=== PATIENT | female | born 1965 | race Caucasian/White ===

== ENCOUNTER 2017-05-28 15:22 | Emergency (ER) | payer OTHER ==
[~2017-05-28] VITALS: Ht 170.2 cm; Wt 104.5 kg
[~2017-05-28 15:22] MED LIST: COUM10TA PO; LOVE0.8I SC; NO HOME MEDS; TYLE325T5 PO
[2017-05-28] MEDS ORDERED: XARE20TA PO (15:32)
[2017-05-28] MEDS ORDERED: CLINDAMYCIN 150 MG CAP PO ONE (16:00)
[2017-05-28] MEDS ORDERED: CLEO300C2 PO (16:33)
[2017-05-28] MEDS ORDERED: ACET30TAB PO (16:33)
[2017-05-28 16:41] VITALS: BP 180/86
[2017-05-28] MEDS ORDERED: ACETAMINOPH W/CODEINE #3 TAB UD PO ONE (16:45)
== END 2017-05-28 16:50 | disposition home or self-care (01) ==
LOC: M ED 15:22
DX: K08.89 Other specified disorders of teeth and supporting structures (principal); S02.5XXA Fracture of tooth (traumatic), initial encounter for closed fracture; X58.XXXA Exposure to other specified factors, initial encounter; Y92.9 Unspecified place or not applicable; Y93.9 Activity, unspecified; Y99.9 Unspecified external cause status; R56.9 Unspecified convulsions; Z86.718 Personal history of other venous thrombosis and embolism; Z86.711 Personal history of pulmonary embolism; Z79.899 Other long term (current) drug therapy; Z88.0 Allergy status to penicillin; Z88.8 Allergy status to other drugs, medicaments and biological substances

== ENCOUNTER 2017-09-15 18:10 | Emergency (ER) | payer OTHER ==
[2017-09-15] MEDS: NORCO, ANEXSIA 5/325MG TABLET (HYDROcodone/ACETAMINOPHEN) PO (19:15)
== END 2017-09-15 20:18 | disposition home or self-care (01) ==
LOC: M ED 18:10
DX: M72.2 Plantar fascial fibromatosis (principal); Z79.01 Long term (current) use of anticoagulants; Z87.39 Personal history of other diseases of the musculoskeletal system and connective tissue; Z86.718 Personal history of other venous thrombosis and embolism; Z86.711 Personal history of pulmonary embolism; Z88.1 Allergy status to other antibiotic agents; Z88.0 Allergy status to penicillin
CPT/HCPCS: 73630

== ENCOUNTER → 2018-10-02 | Outpatient (REF) | payer OTHER ==
[~2018-10-02] MED LIST changes: +ACET-716 PO; +CLEO300C2 PO; +HYDR-3715 PO; +XARE20TA PO
[2018-10-02 18:20] LABS: C REACTIVE PROTEIN QUANTITATIV < 0.30 MG/DL (0.00-0.30); RHEUMATOID FACTOR QUANT < 10.0 IU/ML (<15.0)
== END ==
LOC: M SFHCPLAZ 15:27
PROVIDERS: ATTEND Family Medicine
DX: M25.542 Pain in joints of left hand (principal); I82.503 Chronic embolism and thrombosis of unspecified deep veins of lower extremity, bilateral

== ENCOUNTER → 2018-10-08 | Outpatient (CLI) | payer OTHER ==
--- NOTE | 2018-10-08 13:15 | REP ---
Left lower extremity Duplex Doppler venous ultrasound: Real time compression and duplex Doppler interrogation of the left lower extremity deep venous system is performed. The left common femoral, superficial femoral and popliteal veins are fully compressible with transducer pressure and demonstrate normal spontaneous and phasic flow, without evidence of deep venous thrombosis. Impression: No evidence of deep venous thrombosis of the left lower extremity femoral popliteal venous system. Electronically Signed by Austin Kamara MD 10/08/2018 01:06 P
--- NOTE | 2018-10-08 14:29 | REP ---
BILATERAL HANDS, EIGHT VIEWS: HISTORY: Joint pain. RIGHT HAND: There is no acute fracture or dislocation. The joint spaces are normal in appearance. Calcifications are present medial to the 5th metacarpophalangeal joint. This represents ligamentous or tendon calcification. IMPRESSION: There is no acute fracture or dislocation. LEFT HAND: There is no acute fracture or dislocation. The joint spaces are normal in appearance. IMPRESSION: There is no acute fracture or dislocation. Electronically Signed by Abiodun Hernandes MD 10/08/2018 02:33 P
== END ==
LOC: M RAD 12:28
PROVIDERS: ATTEND Hospitalist
DX: M25.541 Pain in joints of right hand (principal); M25.542 Pain in joints of left hand; Z86.718 Personal history of other venous thrombosis and embolism

== ENCOUNTER → 2018-11-15 | Outpatient (REF) | payer OTHER ==
[2018-11-15 16:06] LABS: ALBUMIN 3.8 GM/DL (3.2-5.2); ALT/SGPT 74 U/L (12-78); BASO % 0.2 % (0.0-1.0); BILIRUBIN,TOTAL 0.6 MG/DL (0.2-1.0); BLOOD UREA NITROGEN 11 MG/DL (7-18); CALCIUM LEVEL 9.4 MG/DL (8.5-10.1); CARBON DIOXIDE LEVEL 27 MEQ/L (21-32); CHLORIDE LEVEL 108 MEQ/L (98-107); CHOLESTEROL LEVEL 213 MG/DL (<200); CHOLESTEROL RISK RATIO 3.227 (<5); CREATININE FOR GFR 0.82 MG/DL (0.55-1.30); EOS # 0.1 10^3/uL (0.0-0.50); EOS % 1.7 % (0.0-3.0); GLOMERULAR FILTRATION RATE > 60.0 (>51); GLUCOSE, FASTING 139 MG/DL (70-100); HDL CHOLESTEROL 66 MG/DL (>40); HEMATOCRIT 41.2 % (36.0-47.0); HEMOGLOBIN 13.7 g/dl (12.0-15.5); LDL CHOLESTEROL 120 MG/DL (<100); LYMPH # 1.9 10^3/uL (1.5-4.5); LYMPH % 31.7 % (24.0-44.0); MEAN CORPUSCULAR HEMOGLOBIN 30.4 pg (27.0-33.0); MEAN CORPUSCULAR HGB CONC 33.3 g/dl (32.0-36.5); MEAN CORPUSCULAR VOLUME 91.6 fl (80.0-96.0); MONO # 0.5 10^3/uL (0.0-0.8); MONO % 7.5 % (0.0-5.0); NEUTROPHILS # 3.5 10^3/uL (1.8-7.7); NEUTROPHILS % 58.6 % (36.0-66.0); NON-HDL-C 147 MG/DL; PLATELET COUNT, AUTOMATED 253 10^3/uL (150-450); SODIUM LEVEL 143 MEQ/L (136-145); TRIGLYCERIDES LEVEL 137 MG/DL (<150)
== END ==
LOC: M SFHCPLAZ 13:44
DX: Z00.00 Encounter for general adult medical examination without abnormal findings (principal)

== ENCOUNTER → 2020-07-08 | Outpatient (REF) | payer OTHER | LOC: M SFHCPLAZ 10:23 | PROVIDERS: ATTEND Family Medicine | DX: R10.11 Right upper quadrant pain (principal) ==

== ENCOUNTER → 2020-08-26 | Outpatient (REF) | payer OTHER ==
[2020-08-26 14:58] LABS: ALBUMIN 3.9 GM/DL (3.2-5.2); ALT/SGPT 65 U/L (12-78); BILIRUBIN,TOTAL 0.4 MG/DL (0.2-1.0); BLOOD UREA NITROGEN 15 MG/DL (7-18); CALCIUM LEVEL 9.7 MG/DL (8.5-10.1); CARBON DIOXIDE LEVEL 30 MEQ/L (21-32); CHLORIDE LEVEL 109 MEQ/L (98-107); CHOLESTEROL LEVEL 209 MG/DL (<200); CREATININE FOR GFR 0.82 MG/DL (0.55-1.30); GLOMERULAR FILTRATION RATE > 60.0 (>51); GLUCOSE, FASTING 98 MG/DL (70-100); HDL CHOLESTEROL 62 MG/DL (>40); LDL CHOLESTEROL 119 MG/DL (<100); NON-HDL-C 147 MG/DL; POTASSIUM SERUM 4.2 MEQ/L (3.5-5.1); SODIUM LEVEL 143 MEQ/L (136-145); TOTAL PROTEIN 7.5 GM/DL (6.4-8.2); TRIGLYCERIDES LEVEL 140 MG/DL (<150)
[2020-08-26 15:18] LABS: HEMOGLOBIN A1c 5.8 %
[2020-08-26 15:49] LABS: HEMATOCRIT 44.6 % (36.0-47.0); HEMOGLOBIN 14.5 g/dl (12.0-15.5); MEAN CORPUSCULAR HGB CONC 32.5 g/dl (32.0-36.5); MEAN CORPUSCULAR VOLUME 92.3 fl (80.0-96.0); PLATELET COUNT, AUTOMATED 271 10^3/uL (150-450); RED BLOOD COUNT 4.83 10^6/uL (4.00-5.40)
== END ==
LOC: M SFHCPLAZ 10:30
PROVIDERS: ATTEND Nurse Practitioner Adult Health
DX: Z86.711 Personal history of pulmonary embolism (principal); I82.509 Chronic embolism and thrombosis of unspecified deep veins of unspecified lower extremity; R73.9 Hyperglycemia, unspecified; Z13.220 Encounter for screening for lipoid disorders; Z13.29 Encounter for screening for other suspected endocrine disorder

== ENCOUNTER → 2020-09-09 | Outpatient (CLI) | payer OTHER ==
--- NOTE | 2020-09-09 09:23 | REP ---
INDICATION: RUQ PAIN. COMPARISON: 09/07/2015. TECHNIQUE: Real-time sonographic evaluation of right upper quadrant performed. FINDINGS: There may be some mild sludge in the gallbladder but no gallstones are seen. There is no gallbladder wall thickening or pericholecystic fluid.. There is no intrahepatic or extrahepatic biliary dilatation, common bile duct measures 5 mm in maximum diameter. Liver demonstrates diffuse heterogeneous increased echotexture compatible with diffuse fibrofatty infiltration. No gross liver masses seen. The pancreas demonstrates homogeneous echotexture with no gross mass, however, visualization of the pancreas is limited due to bowel gas. The right kidney demonstrates no hydronephrosis, with a normal size of 12.8 cm in length. The visualized abdominal aorta is normal in caliber.No free fluid is seen. IMPRESSION: Possible mild gallbladder sludge. No gallstones, gallbladder wall thickening, pericholecystic fluid or biliary dilatation. Diffuse fibrofatty infiltration of the liver. No free fluid. <Electronically signed by Austin Kamara > 09/09/20 0919
== END ==
LOC: M RAD 08:13
PROVIDERS: ATTEND Nurse Practitioner Adult Health
DX: R10.11 Right upper quadrant pain (principal); K76.0 Fatty (change of) liver, not elsewhere classified

== ENCOUNTER → 2020-10-12 | Outpatient (CLI) | payer OTHER ==
[~2020-10-12] MED LIST changes: +ISOVUE-370 76% 100ML VIAL As Ordered ONE
--- NOTE | 2020-10-12 16:54 | REP ---
INDICATION: SOLITARY PULMONARY NODULE. COMPARISON: April 17, 2015 and 10/25/2013 TECHNIQUE: Standard helical technique after the intravenous administration of 100 cc Isovue 370. FINDINGS: The mediastinum and pulmonary kailey are within normal limits. There are no pleural or pericardial effusions. The imaged upper abdomen and imaged osseous structures are within normal limits with the exception of an unchanged left adrenal gland nodule. This nodule has been stable since 2013. Evaluation of the lung reid shows a stable left lower lobe nodule. There are no new abnormal nodules, masses, or opacities. IMPRESSION: Stable CT findings as described above. <Electronically signed by Trent Becker > 10/12/20 1070
== END ==
LOC: M RAD 15:35
PROVIDERS: ATTEND Nurse Practitioner Adult Health
DX: R91.1 Solitary pulmonary nodule (principal)
CPT/HCPCS: 71260; Q9967

== ENCOUNTER → 2020-11-17 | Outpatient (CLI) | payer OTHER ==
[~2020-11-17] MED LIST changes: -ISOVUE-370 76% 100ML VIAL As Ordered ONE
--- NOTE | 2020-11-17 16:12 | REP ---
INDICATION: RIGHT SIDED PAIN COMPARISON: None. TECHNIQUE: AP and frog-lateral views of the right hip FINDINGS: Moderate osteoarthritic degenerative changes include increased sclerosis along the acetabular roof with marginal spurring and joint space narrowing as well as enthesopathy along the visualized iliac bone and femoral trochanter. IMPRESSION: Moderate osteoarthritic degenerative changes. <Electronically signed by Isael Ramires > 11/17/20 [id number]
--- NOTE | 2020-11-17 16:13 | REP ---
INDICATION: RIGHT SIDED PAIN COMPARISON: None. TECHNIQUE: AP, lateral, bilateral oblique, and coned-down views of the lumbar spine. FINDINGS: Alignment is maintained. Vertebral bodies are intact. And there is no evidence for acute fracture/compression injury or subluxation. Moderate to early advanced multilevel degenerative changes include endplate sclerosis, disc space narrowing, osteophytosis and facet hypertrophy. IMPRESSION: Moderate early advanced multilevel degenerative spondylosis. <Electronically signed by Isael Ramires > 11/17/20 [id number]
== END ==
LOC: M WUC 15:29
PROVIDERS: ATTEND Nurse Practitioner Adult Health
DX: M47.9 Spondylosis, unspecified (principal); M77.9 Enthesopathy, unspecified

== ENCOUNTER → 2020-12-22 | Outpatient (REF) | payer OTHER | LOC: M WUC 16:00 | PROVIDERS: ATTEND Internal Medicine Gastroenterology | DX: R10.11 Right upper quadrant pain (principal) ==

== ENCOUNTER → 2020-12-30 | Outpatient (CLI) | payer OTHER ==
[~2020-12-30] MED LIST changes: +GLUCAGON INJ 1MG VIAL As Ordered ONE; +ISOVUE-370 76% 100ML VIAL As Ordered ONE; +NEULUMEX 0.1% SUSPENSION 450ML BOTTLE (FORMERLY VOLUMEN) As Ordered ONE
--- NOTE | 2020-12-30 22:58 | REP ---
INDICATION: HEMORRHAGE ANUS/RECTUM COMPARISON: None. TECHNIQUE: Axial contrast-enhanced images from the lung bases to the pubic symphysis with images obtained in arterial and portal venous phases of enhancement. Low-dose oral contrast material was administered prior to imaging. Coronal and sagittal reformations were obtained. FINDINGS: The enteric system including stomach, small, and large bowel appears normal. There is no evidence for bowel obstruction or perforation. No mucosal thickening or perienteric inflammatory stranding. No areas of stricture or fistulous formation noted. Terminal ileum and appendix are normal. Few scattered sigmoid diverticula noted without acute diverticulitis. Liver, spleen, pancreas, right adrenal gland and left kidney are normal. 4 mm nonobstructing calculus in the right kidney. Left adrenal gland includes 1.9 cm adenoma unchanged. Pelvis demonstrates normal bladder and age-appropriate uterus/adnexa. No ascites. No adenopathy. No free air. Atherosclerotic changes to the aorta and vasculature noted. Musculoskeletal structures demonstrate age-related changes without acute osseous abnormality. Lung bases are clear. IMPRESSION: 1. Normal appearance to the gastrointestinal system. 2. Stable left adrenal adenoma and 4 mm nonobstructing right renal calculus. <Electronically signed by Isael Ramires > 12/30/20 0732
== END ==
LOC: M RAD 17:20
PROVIDERS: ATTEND Internal Medicine Gastroenterology
DX: N20.0 Calculus of kidney (principal); D35.00 Benign neoplasm of unspecified adrenal gland; K62.5 Hemorrhage of anus and rectum; R19.7 Diarrhea, unspecified; R10.11 Right upper quadrant pain
CPT/HCPCS: 74177; J1610; Q9967

== ENCOUNTER → 2021-01-14 | Outpatient (CLI) | payer OTHER ==
[~2021-01-14] MED LIST changes: +ACET-683 PO; -GLUCAGON INJ 1MG VIAL As Ordered ONE; -ISOVUE-370 76% 100ML VIAL As Ordered ONE; +LOPE2TAB12 PO; -NEULUMEX 0.1% SUSPENSION 450ML BOTTLE (FORMERLY VOLUMEN) As Ordered ONE
== END ==
LOC: M LABSMTC 10:05
PROVIDERS: ATTEND Anesthesiology
DX: Z01.818 Encounter for other preprocedural examination (principal)

== ENCOUNTER 2021-01-19 10:26 | Day surgery (SDC) | payer OTHER ==
[~2021-01-19] VITALS: Ht 170.2 cm; Wt 108.1 kg
[~2021-01-19 10:26] MED LIST changes: +NS 1,000 ML IV SCH
[2021-01-19] MEDS ORDERED: fentaNYL 100 MCG/2 ML INJECTION (J3010) As Ordered ONE (12:16)
--- NOTE | 2021-01-19 12:47 | ROOR ---
Patient Name: Kelly Porras Procedure Date: 01/19/2021 12:34 PM Date of : 1965 Age: 55 Room: [facility] Gender: Female Note Status: Finalized Procedure: Upper GI endoscopy Indications: Epigastric abdominal pain Providers: Rishi Fatima MD Referring MD: Lindsey Geiger NP Requesting Provider: Medicines: Monitored Anesthesia Care Complications: No immediate complications. Procedure: Pre-Anesthesia Assessment: - The heart rate, respiratory rate, oxygen saturations, blood pressure, adequacy of pulmonary ventilation, and response to care were monitored throughout the procedure. The Endoscope was introduced through the mouth, and advanced to the second part of duodenum. The upper GI endoscopy was accomplished without difficulty. The patient tolerated the procedure well. Findings: The esophagus was normal. The stomach was normal. The examined duodenum was normal. Impression: - Normal esophagus. - Normal stomach. - Normal examined duodenum. - No specimens collected. Recommendation: - Observe patient's clinical course. - Continue present medications. - Follow an antireflux regimen. Procedure Code(s): --- Professional --- 42550, Esophagogastroduodenoscopy, flexible, transoral; diagnostic, including collection of specimen(s) by brushing or washing, when performed (separate procedure) Diagnosis Code(s): --- Professional --- R10.13, Epigastric pain CPT copyright 2019 [employer]. All rights reserved. The codes documented in this report are preliminary and upon greenhouse assistant review may be revised to meet current compliance requirements. Rishi Fatima MD Rishi Fatima MD 01/19/2021 12:47:20 PM Electronically signed by Rishi Fatima MD Number of Addenda: 0 Note Initiated On: 01/19/2021 12:34 PM Estimated Blood Loss: Estimated blood loss: none.
[2021-01-19] MEDS ORDERED: propofoL 200 MG/20 ML VIAL As Ordered ONE (12:53)
[2021-01-19] MEDS ORDERED: LIDOCAINE 2% 100MG/5ML SDV (FOR ANES.) As Ordered ONE (12:53)
--- NOTE | 2021-01-19 13:02 | ROOR ---
Patient Name: Kelly Porras Procedure Date: 01/19/2021 12:35 PM Date of : 1965 Age: 55 Room: [facility] Gender: Female Note Status: Finalized Procedure: Colonoscopy Indications: Suspected irritable bowel syndrome, Irritable bowel syndrome with diarrhea Providers: Rishi Fatima MD Referring MD: Lindsey Geiger NP Requesting Provider: Medicines: Monitored Anesthesia Care Complications: No immediate complications. Procedure: Pre-Anesthesia Assessment: - The heart rate, respiratory rate, oxygen saturations, blood pressure, adequacy of pulmonary ventilation, and response to care were monitored throughout the procedure. The Colonoscope was introduced through the anus and advanced to 10 cm into the ileum. The colonoscopy was performed without difficulty. The patient tolerated the procedure well. The quality of the bowel preparation was good. Findings: The perianal and digital rectal examinations were normal. Small Internal Hemorrhoids. A 4 mm polyp was found in the sigmoid colon. The polyp was sessile. The polyp was removed with a cold snare. Resection and retrieval were complete. The exam was otherwise normal throughout the examined colon. The terminal ileum appeared normal. Biopsies for histology were taken with a cold forceps for evaluation of microscopic colitis. Impression: - Small Internal Hemorrhoids. - One 4 mm polyp in the sigmoid colon, removed with a cold snare. Resected and retrieved. - The colon and examined portion of the ileum are otherwise normal. - Biopsies were taken with a cold forceps for evaluation of microscopic colitis. - (Irritable Bowel Syndrome/IBS suspected.) Recommendation: - Please complete your stool testing as ordered. - Telephone endoscopist for pathology results in 2 weeks. - Use fiber, for example Citrucel, Fibercon, Konsyl or Metamucil. - Imodium 1 tablet PO BID. Procedure Code(s): --- Professional --- 89546, Colonoscopy, flexible; with removal of tumor(s), polyp(s), or other lesion(s) by snare technique 88883, 59, Colonoscopy, flexible; with biopsy, single or multiple Diagnosis Code(s): --- Professional --- K58.0, Irritable bowel syndrome with diarrhea K63.5, Polyp of colon CPT copyright 2019 [employer]. All rights reserved. The codes documented in this report are preliminary and upon environmental sampler review may be revised to meet current compliance requirements. Rishi Fatima MD Rishi Fatima MD 01/19/2021 1:02:10 PM Electronically signed by Rishi Fatima MD Number of Addenda: 0 Note Initiated On: 01/19/2021 12:35 PM Estimated Blood Loss: Estimated blood loss: none.
[2021-01-19 13:37] VITALS: BP 156/74
== END 2021-01-19 13:39 | disposition home or self-care (01) ==
LOC: M OPP 10:26
PROVIDERS: ATTEND Internal Medicine Gastroenterology
DX: K63.5 Polyp of colon (principal); K64.8 Other hemorrhoids; K62.5 Hemorrhage of anus and rectum; R10.13 Epigastric pain; Z79.891 Long term (current) use of opiate analgesic; Z79.899 Other long term (current) drug therapy; Z88.0 Allergy status to penicillin; Z88.1 Allergy status to other antibiotic agents; Z86.711 Personal history of pulmonary embolism
CPT/HCPCS: 43235; 45380; 45385; 88305; J3010

== ENCOUNTER → 2022-01-28 | Outpatient (CLI) | payer OTHER ==
[~2022-01-28] MED LIST changes: -NS 1,000 ML IV SCH
[2022-01-28 16:35] LABS: HEMATOCRIT 44.4 % (36.0-47.0); HEMOGLOBIN 14.6 g/dl (12.0-15.5); MEAN CORPUSCULAR HEMOGLOBIN 30.4 pg (27.0-33.0); MEAN CORPUSCULAR HGB CONC 32.9 g/dl (32.0-36.5); MEAN CORPUSCULAR VOLUME 92.3 fl (80.0-96.0); PLATELET COUNT, AUTOMATED 258 10^3/uL (150-450); RED BLOOD COUNT 4.81 10^6/uL (4.00-5.40)
[2022-01-28 17:17] LABS: ALBUMIN 3.6 GM/DL (3.2-5.2); ALT/SGPT 49 U/L (12-78); BILIRUBIN,TOTAL 0.3 MG/DL (0.2-1.0); BLOOD UREA NITROGEN 19 MG/DL (7-18); CALCIUM LEVEL 9.4 MG/DL (8.5-10.1); CARBON DIOXIDE LEVEL 24 MEQ/L (21-32); CHLORIDE LEVEL 104 MEQ/L (98-107); CREATININE FOR GFR 0.85 MG/DL (0.55-1.30); GLOMERULAR FILTRATION RATE > 60.0 (>51); GLUCOSE, FASTING 130 MG/DL (70-100); POTASSIUM SERUM 3.7 MEQ/L (3.5-5.1); SODIUM LEVEL 136 MEQ/L (136-145); TOTAL PROTEIN 7.5 GM/DL (6.4-8.2)
[2022-01-28 17:37] LABS: TOTAL 25(OH) VITAMIN D 13.8 NG/ML (30.0-100.0)
[2022-01-28 19:11] LABS: HEMOGLOBIN A1c 5.8 %
== END ==
LOC: M WUC 13:06
PROVIDERS: ATTEND Nurse Practitioner Adult Health
DX: R73.9 Hyperglycemia, unspecified (principal); Z13.21 Encounter for screening for nutritional disorder; N93.8 Other specified abnormal uterine and vaginal bleeding; Z86.711 Personal history of pulmonary embolism; I82.509 Chronic embolism and thrombosis of unspecified deep veins of unspecified lower extremity; Z13.29 Encounter for screening for other suspected endocrine disorder

== ENCOUNTER → 2023-01-11 | Outpatient (CLI) | payer OTHER | LOC: M WHC 09:02 | PROVIDERS: ATTEND Nurse Practitioner Family | DX: N95.0 Postmenopausal bleeding (principal); R93.89 Abnormal findings on diagnostic imaging of other specified body structures ==

== ENCOUNTER → 2023-01-13 | Outpatient (REF) | payer OTHER | LOC: M SFHCWAGY 17:43 | PROVIDERS: ATTEND Nurse Practitioner Family | DX: Z12.4 Encounter for screening for malignant neoplasm of cervix (principal); N85.00 Endometrial hyperplasia, unspecified | CPT/HCPCS: 87624; 88305; G0123 ==

== ENCOUNTER → 2023-03-27 | Outpatient (CLI) | payer OTHER ==
[~2023-03-27] MED LIST changes: +GASTROGRAFIN SOLUTION 30ML As Ordered ONE; +ISOVUE-370 76% 100ML VIAL As Ordered ONE
== END ==
LOC: M RAD 07:31
PROVIDERS: ATTEND Obstetrics & Gynecology
DX: C54.1 Malignant neoplasm of endometrium (principal); R91.1 Solitary pulmonary nodule; K76.0 Fatty (change of) liver, not elsewhere classified
CPT/HCPCS: 71260; 74177; Q9963; Q9967

== ENCOUNTER → 2023-05-02 | Outpatient (CLI) | payer OTHER ==
[~2023-05-02] VITALS: Ht 171.4 cm; Wt 100.0 kg
[~2023-05-02] MED LIST changes: -GASTROGRAFIN SOLUTION 30ML As Ordered ONE; -ISOVUE-370 76% 100ML VIAL As Ordered ONE; +LIDOCAINE 1% MDV 20ML VIAL As Ordered ONE; +LIDOCAINE W/EPINEPHRINE 1% 20ML VIAL As Ordered ONE; +MIDAZOLAM INJ 2MG/2ML VIAL As Ordered ONE; +NS 1,000 ML IV SCH; +VANCOMYCIN 1000MG/20ML VIAL As Ordered ONE; +VANCOMYCIN HCL 1,000 MG, VIAL MATE ADAPTER 1 EACH in D5W 250 ML IV ONE; +fentaNYL 100 MCG/2 ML INJECTION As Ordered ONE
[2023-05-02 14:45] VITALS: TEMP 98.1
[2023-05-02 17:05] VITALS: BP 144/82; O2SAT 97
== END ==
LOC: M IRPRO 14:34
PROVIDERS: ATTEND Internal Medicine Hematology & Oncology
DX: C54.1 Malignant neoplasm of endometrium (principal)
CPT/HCPCS: 36571; 99152; 99153; C1894; J2250; J3010; J3370

== ENCOUNTER → 2023-06-22 | Outpatient (REF) | payer OTHER ==
[~2023-06-22] MED LIST changes: +ESTR0.1C5 TOP; +LIDO30CR18 TOP; -LIDOCAINE 1% MDV 20ML VIAL As Ordered ONE; -LIDOCAINE W/EPINEPHRINE 1% 20ML VIAL As Ordered ONE; -MIDAZOLAM INJ 2MG/2ML VIAL As Ordered ONE; -NS 1,000 ML IV SCH; +ONDA-84 PO; +PROC10TA5 PO; -VANCOMYCIN 1000MG/20ML VIAL As Ordered ONE; -VANCOMYCIN HCL 1,000 MG, VIAL MATE ADAPTER 1 EACH in D5W 250 ML IV ONE; -fentaNYL 100 MCG/2 ML INJECTION As Ordered ONE
== END ==
LOC: M LAB REF 17:24
PROVIDERS: ATTEND Specialist
DX: C54.1 Malignant neoplasm of endometrium (principal)

== ENCOUNTER 2023-07-05 16:48 | Emergency (ER) | payer OTHER ==
[~2023-07-05] VITALS: Ht 170.2 cm; Wt 95.4 kg
[~2023-07-05 16:48] MED LIST changes: +DIPH2.5T15 PO
[2023-07-05] MEDS ORDERED: ACET1TAB55 (17:14)
[2023-07-05] MEDS ORDERED: ACETAMINOPHEN 500 MG TAB PO ONE (17:20)
[2023-07-05] MEDS ORDERED: NS 1,000 ML IV SCH (17:20)
[2023-07-05 18:34] LABS: BASO % 0.5 % (0.0-1.0); EOS # 0.1 10^3/uL (0.0-0.5); EOS % 3.8 % (0.0-3.0); HEMATOCRIT 38.5 % (36.0-47.0); HEMOGLOBIN 13.3 g/dl (12.0-15.5); LYMPH # 0.7 10^3/uL (1.5-5.0); LYMPH % 34.7 % (24.0-44.0); MEAN CORPUSCULAR HEMOGLOBIN 30.6 pg (27.0-33.0); MEAN CORPUSCULAR HGB CONC 34.5 g/dl (32.0-36.5); MEAN CORPUSCULAR VOLUME 88.7 fl (80.0-96.0); MONO % 1.4 % (2.0-8.0); NEUTROPHILS # 1.3 10^3/uL (1.5-8.5); NEUTROPHILS % 59.1 % (36.0-66.0); PLATELET COUNT, AUTOMATED 125 10^3/uL (150-450); RED BLOOD COUNT 4.34 10^6/uL (4.00-5.40); WHITE BLOOD COUNT 2.1 10^3/uL (4.0-10.0)
[2023-07-05 18:55] LABS: LIPASE 34 U/L (12-53)
[2023-07-05 18:58] LABS: ALBUMIN 3.3 G/DL (3.2-5.2); ALKALINE PHOSPHATASE 99 U/L (46-116); ALT/SGPT 85 U/L (7.0-40); AST/SGOT 67 U/L (<34); BILIRUBIN,DIRECT 0.4 MG/DL (<0.4); BILIRUBIN,TOTAL 1.1 MG/DL (0.3-1.2); BLOOD UREA NITROGEN 14 MG/DL (9-23); CALCIUM LEVEL 9.5 MG/DL (8.5-10.1); CARBON DIOXIDE LEVEL 29 MMOL/L (20-31); CHLORIDE LEVEL 102 MMOL/L (98-107); CREATININE FOR GFR 0.54 MG/DL (0.55-1.30); GLOMERULAR FILTRATION RATE > 60.0 (>51); GLUCOSE, FASTING 130 MG/DL (60-100); POTASSIUM SERUM 3.8 MMOL/L (3.5-5.1); SODIUM LEVEL 138 MMOL/L (136-145); TOTAL PROTEIN 6.4 G/DL (5.7-8.2)
[2023-07-05] MEDS ORDERED: ISOVUE-370 76% 100ML VIAL As Ordered ONE (19:29)
[2023-07-05 19:57] LABS: INR 1.38; PROTHROMBIN TIME 16.5 SECONDS (12.5-14.5)
[2023-07-05 19:58] LABS: PARTIAL THROMBOPLASTIN TIME 28.5 SECONDS (24.8-34.2)
[2023-07-05] MEDS ORDERED: NORCO 5/325MG TABLET (HOME DOSE PACK) PO ONE (22:15)
[2023-07-05 22:22] VITALS: BP 114/66; O2SAT 96
[2023-07-05] MEDS ORDERED: HYDR-3713 PO (22:22)
[2023-07-05 22:36] VITALS: TEMP 97.3
== END 2023-07-05 22:57 | disposition home or self-care (01) ==
LOC: M ED 16:48
DX: K52.9 Noninfective gastroenteritis and colitis, unspecified (principal); C54.1 Malignant neoplasm of endometrium; E27.9 Disorder of adrenal gland, unspecified; R93.3 Abnormal findings on diagnostic imaging of other parts of digestive tract; Z86.711 Personal history of pulmonary embolism; Z86.718 Personal history of other venous thrombosis and embolism; D68.61 Antiphospholipid syndrome; Z95.828 Presence of other vascular implants and grafts; Z92.21 Personal history of antineoplastic chemotherapy; Z79.01 Long term (current) use of anticoagulants; Z88.0 Allergy status to penicillin; Z88.8 Allergy status to other drugs, medicaments and biological substances
CPT/HCPCS: 70450; 74177; 80048; 80076; 83605; 83690; 85025; 85610; 85730; 87486; 87507; 87581; 87633; 87798; 93005; 96360; 96361; 96375; 99284; Q9967

== ENCOUNTER → 2023-07-18 | Outpatient (CLI) | payer OTHER ==
[~2023-07-18] MED LIST changes: +ACET1TAB55; +HYDR-3713 PO
== END ==
LOC: M ONCM 10:29
PROVIDERS: ATTEND Dietitian, Registered
DX: C54.1 Malignant neoplasm of endometrium (principal); Z71.3 Dietary counseling and surveillance; Z68.30 Body mass index [BMI] 30.0-30.9, adult; Z86.16 Personal history of COVID-19; Z92.21 Personal history of antineoplastic chemotherapy

== ENCOUNTER 2023-08-30 20:23 | Inpatient (IN) | payer OTHER ==
[~2023-08-30] VITALS: Ht 170.2 cm; Wt 84.6 kg
[2023-08-30] MEDS: SODIUM CHLORIDE 0.9% INJ 10 ML SYR IV SCH (09:00)
[~2023-08-30 20:23] MED LIST changes: +MEGE400O12 PO; +POTA-151 PO
[2023-08-30] MEDS: NS 1,000 ML IV ONE (22:10)
[2023-08-30] MEDS: ONDANSETRON 4MG 2ML VIAL IV ONE (22:10)
[2023-08-30] MEDS: MORPHINE 4 MG/ML 1ML VIAL IV PRN (22:10)
[2023-08-30 22:12] LABS: BASO % 0.9 % (0.0-1.0); EOS % 0.9 % (0.0-3.0); HEMOGLOBIN 11.7 g/dl (12.0-15.5); LYMPH # 0.3 10^3/uL (1.5-5.0); LYMPH % 29.1 % (24.0-44.0); MEAN CORPUSCULAR HEMOGLOBIN 32.1 pg (27.0-33.0); MEAN CORPUSCULAR HGB CONC 35.5 g/dl (32.0-36.5); MEAN CORPUSCULAR VOLUME 90.4 fl (80.0-96.0); MONO % 1.7 % (2.0-8.0); NEUTROPHILS % 65.7 % (36.0-66.0); RED BLOOD COUNT 3.65 10^6/uL (4.00-5.40); WHITE BLOOD COUNT 1.2 10^3/uL (4.0-10.0)
[2023-08-30 22:33] LABS: LIPASE 28 U/L (12-53)
[2023-08-30 22:39] LABS: NEUTROPHILS # 0.8 10^3/uL (1.5-8.5); PLATELET COUNT, AUTOMATED 70 10^3/uL (150-450)
[2023-08-30 22:48] LABS: RSV AMPLIFICATION NEGATIVE (NEGATIVE)
[2023-08-30 22:54] LABS: ALBUMIN 3.2 G/DL (3.2-5.2); ALKALINE PHOSPHATASE 81 U/L (46-116); ALT/SGPT 90 U/L (7.0-40); AST/SGOT 108 U/L (<34); BILIRUBIN,DIRECT 1.2 MG/DL (<0.4); BILIRUBIN,TOTAL 2.3 MG/DL (0.3-1.2); BLOOD UREA NITROGEN 14 MG/DL (9-23); CALCIUM LEVEL 8.6 MG/DL (8.5-10.1); CARBON DIOXIDE LEVEL 29 MMOL/L (20-31); CHLORIDE LEVEL 98 MMOL/L (98-107); CREATININE FOR GFR 0.44 MG/DL (0.55-1.30); GLOMERULAR FILTRATION RATE > 60.0 (>51); GLUCOSE, FASTING 116 MG/DL (60-100); MAGNESIUM LEVEL 1.7 MG/DL (1.8-2.4); POTASSIUM SERUM 3.3 MMOL/L (3.5-5.1); SODIUM LEVEL 134 MMOL/L (136-145); TOTAL PROTEIN 6.1 G/DL (5.7-8.2)
[2023-08-31] MEDS: KCL 10MEQ/100ML SWI (KRUN) 10 MEQ in IV 1 EA IV ONE (00:14)
[2023-08-31] MEDS ORDERED: MOM 30ML SUSPENSION UDC PO PRN (02:10)
[2023-08-31] MEDS ORDERED: SODIUM CHLORIDE 0.9% INJ 10 ML SYR IV PRN (02:10)
[2023-08-31] MEDS ORDERED: ACETAMINOPHEN TAB 650MG DOSE (2X325MG) PO PRN (02:10)
[2023-08-31] MEDS ORDERED: HOME MED LIST COMPLETE! XX SCH (02:20)
[2023-08-31] MEDS: LR 1,000 ML IV SCH (02:57)
[2023-08-31] MEDS: MAG SULF 1GM/100ML (MAG RUN) 1 GM in IV 1 EA IV ONE (03:27)
[2023-08-31 04:24] VITALS: BP 130/83; TEMP 97.7; O2SAT 99
[2023-08-31] MEDS: RIVAROXABAN 20MG TAB (XARELTO) PO SCH (08:18)
[2023-08-31] MEDS: DOCUSATE SODIUM 100MG CAPSULE PO SCH (08:21)
[2023-08-31] MEDS: SODIUM CHLORIDE 0.9% INJ 10 ML SYR IV SCH (08:21)
[2023-08-31] MEDS ORDERED: PERCOCET 5MG/325MG TAB PO PRN (10:20)
[2023-08-31] MEDS: HYDROMORPHONE HCL 0.5 MG/ 0.5 ML SYRINGE IV ONE (10:42)
[2023-08-31 10:58] LABS: HEMOGLOBIN 10.3 g/dl (12.0-15.5); LYMPH # 0.6 10^3/uL (1.5-5.0); LYMPH % 59.8 % (24.0-44.0); MEAN CORPUSCULAR HEMOGLOBIN 32.4 pg (27.0-33.0); MEAN CORPUSCULAR HGB CONC 35.5 g/dl (32.0-36.5); MEAN CORPUSCULAR VOLUME 91.2 fl (80.0-96.0); MONO % 3.1 % (2.0-8.0); NEUTROPHILS % 34.1 % (36.0-66.0); RED BLOOD COUNT 3.18 10^6/uL (4.00-5.40)
[2023-08-31 11:32] LABS: NEUTROPHILS # 0.3 10^3/uL (1.5-8.5); PLATELET COUNT, AUTOMATED 59 10^3/uL (150-450)
[2023-08-31 11:34] LABS: ALBUMIN 2.8 G/DL (3.2-5.2); ALKALINE PHOSPHATASE 71 U/L (46-116); ALT/SGPT 73 U/L (7.0-40); AST/SGOT 80 U/L (<34); BILIRUBIN,TOTAL 1.7 MG/DL (0.3-1.2); BLOOD UREA NITROGEN 10 MG/DL (9-23); CALCIUM LEVEL 8.6 MG/DL (8.5-10.1); CARBON DIOXIDE LEVEL 28 MMOL/L (20-31); CHLORIDE LEVEL 102 MMOL/L (98-107); CREATININE FOR GFR 0.46 MG/DL (0.55-1.30); GLOMERULAR FILTRATION RATE > 60.0 (>51); GLUCOSE, FASTING 92 MG/DL (60-100); MAGNESIUM LEVEL 1.8 MG/DL (1.8-2.4); POTASSIUM SERUM 3.3 MMOL/L (3.5-5.1); SODIUM LEVEL 137 MMOL/L (136-145); TOTAL PROTEIN 5.3 G/DL (5.7-8.2)
[2023-08-31] MEDS: cefTRIAXone SOD 2 GM in D5W MINI-BAG PLUS 50 ML IV SCH (12:46)
[2023-08-31] MEDS: metroNIDAZOLE 500 MG in IV 1 EA IV SCH (13:50)
[2023-08-31 14:00] VITALS: BP 131/82; TEMP 98.1; O2SAT 96
[2023-08-31] MEDS: ONDANSETRON 4MG ORAL DISINTEGRATING TAB PO PRN (16:46)
[2023-08-31] MEDS: LACTOBACILLUS ACIDOPHILUS CAP (BACID) PO SCH (16:46)
[2023-08-31] MEDS: PERCOCET 5MG/325MG TAB PO PRN (20:00)
[2023-08-31 20:15] VITALS: BP 115/79; TEMP 97.7; O2SAT 97
[2023-09-01 05:27] VITALS: BP 116/77; TEMP 98.6; O2SAT 98
[2023-09-01 06:41] LABS: EOS % 1.5 % (0.0-3.0); HEMATOCRIT 28.4 % (36.0-47.0); HEMOGLOBIN 9.9 g/dl (12.0-15.5); LYMPH # 0.5 10^3/uL (1.5-5.0); LYMPH % 79.1 % (24.0-44.0); MEAN CORPUSCULAR HEMOGLOBIN 31.9 pg (27.0-33.0); MEAN CORPUSCULAR HGB CONC 34.9 g/dl (32.0-36.5); MEAN CORPUSCULAR VOLUME 91.6 fl (80.0-96.0); NEUTROPHILS % 16.4 % (36.0-66.0)
[2023-09-01 06:46] LABS: NEUTROPHILS # 0.1 10^3/uL (1.5-8.5); WHITE BLOOD COUNT 0.7 10^3/uL (4.0-10.0)
[2023-09-01 06:47] LABS: PLATELET COUNT, AUTOMATED 51 10^3/uL (150-450)
[2023-09-01 07:07] LABS: ALBUMIN 2.9 G/DL (3.2-5.2); ALKALINE PHOSPHATASE 71 U/L (46-116); ALT/SGPT 75 U/L (7.0-40); AST/SGOT 85 U/L (<34); BILIRUBIN,TOTAL 1.3 MG/DL (0.3-1.2); BLOOD UREA NITROGEN 7 MG/DL (9-23); CALCIUM LEVEL 8.6 MG/DL (8.5-10.1); CARBON DIOXIDE LEVEL 27 MMOL/L (20-31); CHLORIDE LEVEL 104 MMOL/L (98-107); CREATININE FOR GFR 0.47 MG/DL (0.55-1.30); GLOMERULAR FILTRATION RATE > 60.0 (>51); GLUCOSE, FASTING 86 MG/DL (60-100); MAGNESIUM LEVEL 1.5 MG/DL (1.8-2.4); POTASSIUM SERUM 3.5 MMOL/L (3.5-5.1); SODIUM LEVEL 137 MMOL/L (136-145); TOTAL PROTEIN 5.4 G/DL (5.7-8.2)
[2023-09-01 07:14] LABS: PROCALCITONIN 0.09 ng/ml
[2023-09-01] MEDS: FILGRASTIM 300MCG 0.5ML SYRINGE **SC ADMINISTRATION ONLY SC SCH (11:13)
[2023-09-01 14:00] VITALS: BP 115/78; TEMP 97.9; O2SAT 94
[2023-09-01] MEDS: MAG SULF 1GM/100ML (MAG RUN) 1 GM in IV 1 EA IV SCH (16:39)
[2023-09-01] MEDS: KCL 10MEQ/100ML SWI (KRUN) 10 MEQ in IV 1 EA IV ONE (18:52)
[2023-09-01 20:55] VITALS: BP 115/77; TEMP 97.7; O2SAT 98
[2023-09-02 06:00] VITALS: BP 118/74; TEMP 98.1; O2SAT 99
[2023-09-02 06:49] LABS: EOS % 1.2 % (0.0-3.0); HEMATOCRIT 27.8 % (36.0-47.0); HEMOGLOBIN 9.8 g/dl (12.0-15.5); LYMPH # 0.6 10^3/uL (1.5-5.0); LYMPH % 67.9 % (24.0-44.0); MEAN CORPUSCULAR HEMOGLOBIN 32.1 pg (27.0-33.0); MEAN CORPUSCULAR HGB CONC 35.3 g/dl (32.0-36.5); MEAN CORPUSCULAR VOLUME 91.1 fl (80.0-96.0); MONO # 0.1 10^3/uL (0.0-0.8); MONO % 7.1 % (2.0-8.0); NEUTROPHILS % 23.8 % (36.0-66.0); RED BLOOD COUNT 3.05 10^6/uL (4.00-5.40)
[2023-09-02 07:01] LABS: NEUTROPHILS # 0.2 10^3/uL (1.5-8.5); PLATELET COUNT, AUTOMATED 40 10^3/uL (150-450); WHITE BLOOD COUNT 0.8 10^3/uL (4.0-10.0)
[2023-09-02 07:16] LABS: BLOOD UREA NITROGEN < 5 MG/DL (9-23); CALCIUM LEVEL 8.6 MG/DL (8.5-10.1); CARBON DIOXIDE LEVEL 28 MMOL/L (20-31); CHLORIDE LEVEL 104 MMOL/L (98-107); CREATININE FOR GFR 0.47 MG/DL (0.55-1.30); GLOMERULAR FILTRATION RATE > 60.0 (>51); GLUCOSE, FASTING 92 MG/DL (60-100); POTASSIUM SERUM 3.3 MMOL/L (3.5-5.1); SODIUM LEVEL 139 MMOL/L (136-145)
[2023-09-02] MEDS: LOPERAMIDE 2 MG CAPLET PO ONE (08:47)
[2023-09-02] MEDS: KCL 10MEQ/100ML SWI (KRUN) 10 MEQ in IV 1 EA IV SCH (08:47)
[2023-09-02] MEDS ORDERED: KCL 40MEQ IN D5/0.45NS 1000ML 1,000 ML IV SCH (09:00)
[2023-09-02] MEDS: KCL 40MEQ IN D5/0.45NS 1000ML 1,000 ML IV SCH (11:06)
[2023-09-02 14:00] VITALS: BP 116/73; TEMP 97.9; O2SAT 98
[2023-09-02] MEDS: ONDANSETRON 4MG 2ML VIAL IV ONE (14:15)
[2023-09-02 20:19] VITALS: BP 116/75; TEMP 97.7; O2SAT 97
[2023-09-03 06:15] VITALS: BP 139/84; TEMP 97.5; O2SAT 97
[2023-09-03 06:57] LABS: HEMATOCRIT 27.2 % (36.0-47.0); HEMOGLOBIN 9.5 g/dl (12.0-15.5); LYMPH # 0.8 10^3/uL (1.5-5.0); LYMPH % 80.2 % (24.0-44.0); MEAN CORPUSCULAR HEMOGLOBIN 32.5 pg (27.0-33.0); MEAN CORPUSCULAR HGB CONC 34.9 g/dl (32.0-36.5); MEAN CORPUSCULAR VOLUME 93.2 fl (80.0-96.0); MONO # 0.1 10^3/uL (0.0-0.8); MONO % 13.5 % (2.0-8.0); NEUTROPHILS % 5.3 % (36.0-66.0); RED BLOOD COUNT 2.92 10^6/uL (4.00-5.40)
[2023-09-03 07:08] LABS: NEUTROPHILS # 0.1 10^3/uL (1.5-8.5); PLATELET COUNT, AUTOMATED 43 10^3/uL (150-450)
[2023-09-03 07:27] LABS: BLOOD UREA NITROGEN < 5 MG/DL (9-23); CALCIUM LEVEL 8.8 MG/DL (8.5-10.1); CARBON DIOXIDE LEVEL 25 MMOL/L (20-31); CHLORIDE LEVEL 106 MMOL/L (98-107); CREATININE FOR GFR 0.47 MG/DL (0.55-1.30); GLOMERULAR FILTRATION RATE > 60.0 (>51); GLUCOSE, FASTING 93 MG/DL (60-100); SODIUM LEVEL 138 MMOL/L (136-145)
[2023-09-03] MEDS: ONDANSETRON 4MG 2ML VIAL IV PRN (08:35)
[2023-09-03 09:15] LABS: IMMUNOGLOBULIN A 368.7 MG/DL (40-350); IMMUNOGLOBULIN G 615 MG/DL (650-1600)
[2023-09-03 11:16] LABS: D-DIMER QUANT 0.28 ug/mL (<0.5); INR 1.32; PARTIAL THROMBOPLASTIN TIME 26.7 SECONDS (24.8-34.2)
[2023-09-03] MEDS: PROMETHAZINE 25MG/ML 1ML VIAL IV ONE (15:42)
[2023-09-03] MEDS: FILGRASTIM 480 MCG/0.8 ML SYRINGE **SC ADMINISTRATION ONLY SC SCH (16:06)
[2023-09-03 16:54] VITALS: BP 133/83; TEMP 98.6; O2SAT 98
[2023-09-03] MEDS: diphenhydrAMINE 50MG/ML VIAL IV STA (17:23)
[2023-09-03] MEDS: diphenhydrAMINE 50MG/ML VIAL IV ONE (20:09)
[2023-09-03 20:13] VITALS: BP 131/82; TEMP 98.6; O2SAT 100
[2023-09-04 05:43] VITALS: BP 128/81; TEMP 97.9; O2SAT 97
[2023-09-04 06:07] LABS: HEMOGLOBIN 9.3 g/dl (12.0-15.5); MEAN CORPUSCULAR HEMOGLOBIN 32.1 pg (27.0-33.0); MEAN CORPUSCULAR HGB CONC 34.4 g/dl (32.0-36.5); MEAN CORPUSCULAR VOLUME 93.1 fl (80.0-96.0); WHITE BLOOD COUNT 1.3 10^3/uL (4.0-10.0)
[2023-09-04 06:17] LABS: PLATELET COUNT, AUTOMATED 46 10^3/uL (150-450)
[2023-09-04 06:32] LABS: BLOOD UREA NITROGEN < 5 MG/DL (9-23); CALCIUM LEVEL 8.4 MG/DL (8.5-10.1); CARBON DIOXIDE LEVEL 25 MMOL/L (20-31); CHLORIDE LEVEL 108 MMOL/L (98-107); CREATININE FOR GFR 0.51 MG/DL (0.55-1.30); GLOMERULAR FILTRATION RATE > 60.0 (>51); GLUCOSE, FASTING 88 MG/DL (60-100); POTASSIUM SERUM 4.2 MMOL/L (3.5-5.1); SODIUM LEVEL 139 MMOL/L (136-145)
[2023-09-04 06:57] LABS: ATYPICAL LYMPH 3 % (0-5); LYMPHOCYTES 75 % (16-44); MONOCYTES 19 % (0-5); NEUTROPHILS 3 % (28-66); PLATELET ESTIMATE MARKED DECREASE (NORMAL)
[2023-09-04 06:58] LABS: ANISOCYTOSIS 1+
[2023-09-04 06:59] LABS: MICROCYTOSIS 1+
[2023-09-04 14:23] LABS: FOLATE 3.1 NG/ML (>5.4); VITAMIN B12 LEVEL 578 PG/ML (211-911)
[2023-09-04 15:00] VITALS: BP 117/76; TEMP 97.9; O2SAT 98
[2023-09-04] MEDS: FOLIC ACID 1MG TAB PO ONE (17:16)
[2023-09-04] MEDS: LOPERAMIDE 2 MG CAPLET PO PRN (21:47)
[2023-09-05 05:07] VITALS: BP 116/75; TEMP 98.2; O2SAT 95
[2023-09-05 05:17] LABS: BASO % 0.4 % (0.0-1.0); EOS % 0.4 % (0.0-3.0); HEMATOCRIT 27.4 % (36.0-47.0); HEMOGLOBIN 9.5 g/dl (12.0-15.5); LYMPH # 1.2 10^3/uL (1.5-5.0); LYMPH % 48.2 % (24.0-44.0); MEAN CORPUSCULAR HEMOGLOBIN 32.6 pg (27.0-33.0); MEAN CORPUSCULAR HGB CONC 34.7 g/dl (32.0-36.5); MEAN CORPUSCULAR VOLUME 94.2 fl (80.0-96.0); MONO # 0.6 10^3/uL (0.0-0.8); MONO % 24.1 % (2.0-8.0); NEUTROPHILS % 26.9 % (36.0-66.0); RED BLOOD COUNT 2.91 10^6/uL (4.00-5.40); WHITE BLOOD COUNT 2.5 10^3/uL (4.0-10.0)
[2023-09-05 05:18] LABS: NEUTROPHILS # 0.7 10^3/uL (1.5-8.5); PLATELET COUNT, AUTOMATED 54 10^3/uL (150-450)
[2023-09-05 05:50] LABS: BLOOD UREA NITROGEN < 5 MG/DL (9-23); CALCIUM LEVEL 8.5 MG/DL (8.5-10.1); CARBON DIOXIDE LEVEL 24 MMOL/L (20-31); CHLORIDE LEVEL 106 MMOL/L (98-107); CREATININE FOR GFR 0.58 MG/DL (0.55-1.30); GLOMERULAR FILTRATION RATE > 60.0 (>51); GLUCOSE, FASTING 97 MG/DL (60-100); POTASSIUM SERUM 4.1 MMOL/L (3.5-5.1); SODIUM LEVEL 136 MMOL/L (136-145)
[2023-09-05] MEDS: FOLIC ACID 1MG TAB PO SCH (08:08)
[2023-09-05 14:00] VITALS: BP 114/73; TEMP 97.5; O2SAT 96
[2023-09-05] MEDS ORDERED: PROCHLORPERAZINE 5MG TAB PO PRN (15:05)
[2023-09-05] MEDS: LR 1,000 ML IV SCH (15:33)
[2023-09-05] MEDS ORDERED: METOCLOPRAMIDE 5 MG TAB PO PRN (15:40)
[2023-09-05 16:50] LABS: C REACTIVE PROTEIN QUANTITATIV < 0.40 MG/DL (<1.0)
[2023-09-05 17:13] LABS: ERYTHROCYTE SEDIMENTATION RATE 11 mm/hr (0-30)
[2023-09-05] MEDS: dexAMETHasone 20MG/5ML VIAL IV ONE (17:39)
[2023-09-05] MEDS: PANTOPRAZOLE 40MG VIAL IV SCH (17:39)
[2023-09-05 20:00] VITALS: BP 113/72; TEMP 97.9; O2SAT 94
[2023-09-06] MEDS: LR 500 ML IV SCH (00:45)
[2023-09-06 05:53] LABS: BASO % 0.7 % (0.0-1.0); HEMATOCRIT 25.8 % (36.0-47.0); HEMOGLOBIN 8.9 g/dl (12.0-15.5); LYMPH # 0.7 10^3/uL (1.5-5.0); LYMPH % 14.5 % (24.0-44.0); MEAN CORPUSCULAR HEMOGLOBIN 32.1 pg (27.0-33.0); MEAN CORPUSCULAR HGB CONC 34.5 g/dl (32.0-36.5); MEAN CORPUSCULAR VOLUME 93.1 fl (80.0-96.0); MONO # 0.8 10^3/uL (0.0-0.8); NEUTROPHILS # 2.9 10^3/uL (1.5-8.5); RED BLOOD COUNT 2.77 10^6/uL (4.00-5.40); WHITE BLOOD COUNT 4.5 10^3/uL (4.0-10.0)
[2023-09-06 06:00] VITALS: BP 110/70; TEMP 97.2; O2SAT 94
[2023-09-06 06:20] LABS: ALBUMIN 2.7 G/DL (3.2-5.2); ALKALINE PHOSPHATASE 66 U/L (46-116); ALT/SGPT 43 U/L (7.0-40); AST/SGOT 21 U/L (<34); BILIRUBIN,TOTAL 0.5 MG/DL (0.3-1.2); BLOOD UREA NITROGEN < 5 MG/DL (9-23); CALCIUM LEVEL 8.5 MG/DL (8.5-10.1); CARBON DIOXIDE LEVEL 22 MMOL/L (20-31); CHLORIDE LEVEL 103 MMOL/L (98-107); CREATININE FOR GFR 0.45 MG/DL (0.55-1.30); GLOMERULAR FILTRATION RATE > 60.0 (>51); GLUCOSE, FASTING 116 MG/DL (60-100); MAGNESIUM LEVEL 1.1 MG/DL (1.8-2.4); PHOSPHORUS LEVEL 1.7 MG/DL (2.5-4.9); POTASSIUM SERUM 3.8 MMOL/L (3.5-5.1); SODIUM LEVEL 135 MMOL/L (136-145); TOTAL PROTEIN 4.9 G/DL (5.7-8.2)
[2023-09-06] MEDS: MAGNESIUM OXIDE 400MG TAB (MAG-OX) PO SCH (08:15)
[2023-09-06] MEDS: MAALOX 30 ML SUSP *UDC PO PRN (08:15)
[2023-09-06] MEDS: MAG SULF 1GM/100ML (MAG RUN) 1 GM in IV 1 EA IV SCH (08:16)
[2023-09-06 08:29] LABS: PLATELET COUNT, AUTOMATED 49 10^3/uL (150-450)
[2023-09-06 14:00] VITALS: BP 109/70; TEMP 98.1; O2SAT 94
[2023-09-06] MEDS: POTASSIUM PHOSPHATE INJ 20 MMOL in D5W 250 ML IV ONE (15:08)
[2023-09-06 18:24] LABS: PROCALCITONIN 0.07 ng/ml
[2023-09-06] MEDS: SUCRALFATE SUSP 1GM/10ML UD PO SCH (18:25)
[2023-09-06 21:32] VITALS: BP 108/67; TEMP 98.6; O2SAT 96
[2023-09-06] MEDS: PANTOPRAZOLE 40MG VIAL IV SCH (21:32)
[2023-09-06] MEDS: LR 500 ML IV ONE (21:34)
[2023-09-07] MEDS: LR 500 ML IV ONE (00:19)
[2023-09-07 06:00] VITALS: BP 107/66; TEMP 98.6; O2SAT 97
[2023-09-07 06:26] LABS: BASO % 0.6 % (0.0-1.0); HEMATOCRIT 23.2 % (36.0-47.0); LYMPH # 0.9 10^3/uL (1.5-5.0); LYMPH % 19.7 % (24.0-44.0); MEAN CORPUSCULAR HEMOGLOBIN 32.1 pg (27.0-33.0); MEAN CORPUSCULAR HGB CONC 34.5 g/dl (32.0-36.5); MEAN CORPUSCULAR VOLUME 93.2 fl (80.0-96.0); MONO # 0.6 10^3/uL (0.0-0.8); MONO % 13.8 % (2.0-8.0); NEUTROPHILS # 2.8 10^3/uL (1.5-8.5); NEUTROPHILS % 61.1 % (36.0-66.0); RED BLOOD COUNT 2.49 10^6/uL (4.00-5.40); WHITE BLOOD COUNT 4.6 10^3/uL (4.0-10.0)
[2023-09-07 06:33] LABS: PLATELET COUNT, AUTOMATED 49 10^3/uL (150-450)
[2023-09-07 06:59] LABS: ALBUMIN 2.5 G/DL (3.2-5.2); ALKALINE PHOSPHATASE 67 U/L (46-116); ALT/SGPT 27 U/L (7.0-40); AST/SGOT 20 U/L (<34); BILIRUBIN,TOTAL 0.5 MG/DL (0.3-1.2); BLOOD UREA NITROGEN 6 MG/DL (9-23); CALCIUM LEVEL 8.1 MG/DL (8.5-10.1); CARBON DIOXIDE LEVEL 26 MMOL/L (20-31); CHLORIDE LEVEL 106 MMOL/L (98-107); GLOMERULAR FILTRATION RATE > 60.0 (>51); GLUCOSE, FASTING 91 MG/DL (60-100); MAGNESIUM LEVEL 1.5 MG/DL (1.8-2.4); PHOSPHORUS LEVEL 3.6 MG/DL (2.5-4.9); POTASSIUM SERUM 3.5 MMOL/L (3.5-5.1); SODIUM LEVEL 140 MMOL/L (136-145); TOTAL PROTEIN 4.5 G/DL (5.7-8.2)
[2023-09-07] MEDS: cefTRIAXone SOD 1 GM in D5W MINI-BAG PLUS 50 ML IV SCH (12:04)
[2023-09-07] MEDS: EMLA CREAM 5GM TUBE (LIDOCAINE/PRILOCAINE) TOP ONE (13:59)
[2023-09-07 14:00] VITALS: BP 117/70; TEMP 98.4; O2SAT 97
[2023-09-07] MEDS: MAG SULF 1GM/100ML (MAG RUN) 1 GM in IV 1 EA IV SCH (15:48)
[2023-09-07] MEDS: EPOETIN SC ONE (17:13)
[2023-09-07 21:35] VITALS: BP 118/70; TEMP 97.9; O2SAT 99
[2023-09-08 05:40] VITALS: BP 119/69; TEMP 97.7; O2SAT 97
[2023-09-08 06:29] LABS: HEMATOCRIT 23.4 % (36.0-47.0); MEAN CORPUSCULAR HEMOGLOBIN 31.9 pg (27.0-33.0); MEAN CORPUSCULAR HGB CONC 34.2 g/dl (32.0-36.5); MEAN CORPUSCULAR VOLUME 93.2 fl (80.0-96.0); RED BLOOD COUNT 2.51 10^6/uL (4.00-5.40); WHITE BLOOD COUNT 2.5 10^3/uL (4.0-10.0)
[2023-09-08 06:44] LABS: PLATELET COUNT, AUTOMATED 53 10^3/uL (150-450)
[2023-09-08 06:55] LABS: ALBUMIN 2.6 G/DL (3.2-5.2); ALKALINE PHOSPHATASE 65 U/L (46-116); ALT/SGPT 36 U/L (7.0-40); AST/SGOT 22 U/L (<34); BILIRUBIN,TOTAL 0.5 MG/DL (0.3-1.2); BLOOD UREA NITROGEN < 5 MG/DL (9-23); CALCIUM LEVEL 8.1 MG/DL (8.5-10.1); CARBON DIOXIDE LEVEL 28 MMOL/L (20-31); CHLORIDE LEVEL 104 MMOL/L (98-107); CREATININE FOR GFR 0.43 MG/DL (0.55-1.30); GLOMERULAR FILTRATION RATE > 60.0 (>51); GLUCOSE, FASTING 101 MG/DL (60-100); MAGNESIUM LEVEL 1.8 MG/DL (1.8-2.4); PHOSPHORUS LEVEL 3.3 MG/DL (2.5-4.9); POTASSIUM SERUM 3.4 MMOL/L (3.5-5.1); SODIUM LEVEL 138 MMOL/L (136-145); TOTAL PROTEIN 4.6 G/DL (5.7-8.2)
[2023-09-08 07:27] LABS: ATYPICAL LYMPH 1 % (0-5); LYMPHOCYTES 35 % (16-44); MONOCYTES 11 % (0-5); NEUTROPHILS 53 % (28-66)
[2023-09-08 07:28] LABS: PLATELET ESTIMATE DECREASED (NORMAL)
[2023-09-08] MEDS: POTASSIUM CHLORIDE 10MEQ SR TABLET PO ONE (08:15)
[2023-09-08 13:30] VITALS: BP 116/69; TEMP 96.8; O2SAT 97
[2023-09-08 15:25] LABS: CLOSTRIDIUM DIFFICILE PCR NEGATIVE (NEGATIVE)
[2023-09-08 21:00] VITALS: BP 112/68; TEMP 97.7; O2SAT 96
[2023-09-09 05:00] VITALS: BP 113/71; TEMP 97.7; O2SAT 95
[2023-09-09 06:37] LABS: HEMATOCRIT 23.8 % (36.0-47.0); HEMOGLOBIN 8.4 g/dl (12.0-15.5); MEAN CORPUSCULAR HEMOGLOBIN 33.1 pg (27.0-33.0); MEAN CORPUSCULAR HGB CONC 35.3 g/dl (32.0-36.5); MEAN CORPUSCULAR VOLUME 93.7 fl (80.0-96.0); RED BLOOD COUNT 2.54 10^6/uL (4.00-5.40); WHITE BLOOD COUNT 1.5 10^3/uL (4.0-10.0)
[2023-09-09 06:39] LABS: PLATELET COUNT, AUTOMATED 60 10^3/uL (150-450)
[2023-09-09 07:07] LABS: EOSINOPHILS 1 % (0-3); LYMPHOCYTES 40 % (16-44); METAMYELOCYTES 1 % (0-0); MONOCYTES 15 % (0-5); NEUTROPHILS 39 % (28-66)
[2023-09-09 07:08] LABS: ANISOCYTOSIS 1+; PLATELET ESTIMATE DECREASED (NORMAL)
[2023-09-09 07:09] LABS: ALBUMIN 2.8 G/DL (3.2-5.2); ALKALINE PHOSPHATASE 68 U/L (46-116); ALT/SGPT 22 U/L (7.0-40); AST/SGOT 24 U/L (<34); BILIRUBIN,TOTAL 0.7 MG/DL (0.3-1.2); BLOOD UREA NITROGEN < 5 MG/DL (9-23); CALCIUM LEVEL 8.7 MG/DL (8.5-10.1); CARBON DIOXIDE LEVEL 28 MMOL/L (20-31); CHLORIDE LEVEL 105 MMOL/L (98-107); CREATININE FOR GFR 0.41 MG/DL (0.55-1.30); GLOMERULAR FILTRATION RATE > 60.0 (>51); GLUCOSE, FASTING 109 MG/DL (60-100); MAGNESIUM LEVEL 1.7 MG/DL (1.8-2.4); PHOSPHORUS LEVEL 3.4 MG/DL (2.5-4.9); POLYCHROMASIA 1+; POTASSIUM SERUM 3.7 MMOL/L (3.5-5.1); SODIUM LEVEL 136 MMOL/L (136-145); TEAR DROP CELLS 1+
[2023-09-09] MEDS: MAG SULF 1GM/100ML (MAG RUN) 1 GM in IV 1 EA IV SCH (10:05)
[2023-09-09] MEDS ORDERED: RISATAB3 PO (11:10)
[2023-09-09] MEDS ORDERED: MAGN400T2 PO (11:10)
[2023-09-09] MEDS ORDERED: PROT1TAB2 PO (11:10)
[2023-09-09] MEDS ORDERED: FOLI1TAB11 PO (11:10)
[2023-09-09] MEDS ORDERED: LOPE2CA PO (11:10)
[2023-09-09] MEDS ORDERED: ACET1TAB55 PO (11:10)
[2023-09-09] MEDS ORDERED: ONDA4TAB6 PO (11:10)
[2023-09-09] MEDS ORDERED: SUCR1ORA PO (11:10)
[2023-09-09] MEDS: FILGRASTIM 480 MCG/0.8 ML SYRINGE **SC ADMINISTRATION ONLY SC SCH (11:23)
== END 2023-09-09 13:59 | disposition home or self-care (01) | DRG 809 ==
LOC: M ED 20:23 → M ED INP 08-31 02:07 → ENRESERV 08-31 02:50 → M MSPAV 08-31 03:53
PROVIDERS: ADMIT Internal Medicine; ATTEND Internal Medicine
DX: D61.810 Antineoplastic chemotherapy induced pancytopenia (principal); E87.1 Hypo-osmolality and hyponatremia; D68.61 Antiphospholipid syndrome; C54.1 Malignant neoplasm of endometrium; K76.0 Fatty (change of) liver, not elsewhere classified; T42.6X5A Adverse effect of other antiepileptic and sedative-hypnotic drugs, initial encounter; K52.9 Noninfective gastroenteritis and colitis, unspecified; D70.9 Neutropenia, unspecified; E87.6 Hypokalemia; E83.42 Hypomagnesemia; E86.0 Dehydration; R74.01 Elevation of levels of liver transaminase levels; D35.00 Benign neoplasm of unspecified adrenal gland; Z86.16 Personal history of COVID-19; Z86.711 Personal history of pulmonary embolism; Z86.718 Personal history of other venous thrombosis and embolism; Z90.79 Acquired absence of other genital organ(s); Z88.1 Allergy status to other antibiotic agents; Z88.0 Allergy status to penicillin; Z79.899 Other long term (current) drug therapy; Z11.52 Encounter for screening for COVID-19

== ENCOUNTER → 2023-09-19 | Outpatient (CLI) | payer OTHER ==
[~2023-09-19] MED LIST changes: +ACET1TAB55 PO; +DIPH1TAB81 PO; -DIPH2.5T15 PO; +FOLI1TAB11 PO; +LOMO2.5T PO; +LOPE2CA PO; +LORA1TAB23 PO; +MAGN400T2 PO; +ONDA4TAB6 PO; +PROT1TAB2 PO; +RISATAB3 PO; +SUCR1ORA PO; +Wheelchair; +XARE10TA PO
== END ==
LOC: M PAL 13:45
PROVIDERS: ATTEND Nurse Practitioner Family
DX: C54.1 Malignant neoplasm of endometrium (principal); R11.0 Nausea; F41.9 Anxiety disorder, unspecified; R43.9 Unspecified disturbances of smell and taste; Z51.5 Encounter for palliative care; Z86.16 Personal history of COVID-19; Z79.899 Other long term (current) drug therapy; Z79.01 Long term (current) use of anticoagulants; Z88.1 Allergy status to other antibiotic agents; Z88.0 Allergy status to penicillin; Z88.8 Allergy status to other drugs, medicaments and biological substances; Z92.21 Personal history of antineoplastic chemotherapy

== ENCOUNTER → 2023-09-21 | Outpatient (CLI) | payer OTHER | LOC: M PAL 07:36 | PROVIDERS: ATTEND Nurse Practitioner Family | DX: K52.1 Toxic gastroenteritis and colitis (principal); T45.1X5A Adverse effect of antineoplastic and immunosuppressive drugs, initial encounter; R11.0 Nausea; R43.9 Unspecified disturbances of smell and taste; E63.8 Other specified nutritional deficiencies; E86.0 Dehydration; E87.8 Other disorders of electrolyte and fluid balance, not elsewhere classified; C54.1 Malignant neoplasm of endometrium; Z51.5 Encounter for palliative care; Z79.01 Long term (current) use of anticoagulants; Z79.899 Other long term (current) drug therapy; Z80.1 Family history of malignant neoplasm of trachea, bronchus and lung; Z82.61 Family history of arthritis; Z82.69 Family history of other diseases of the musculoskeletal system and connective tissue; Z88.0 Allergy status to penicillin; Z88.1 Allergy status to other antibiotic agents; Z88.8 Allergy status to other drugs, medicaments and biological substances; Z90.710 Acquired absence of both cervix and uterus; Z90.79 Acquired absence of other genital organ(s); Z92.21 Personal history of antineoplastic chemotherapy ==

== ENCOUNTER 2023-09-26 20:46 | Inpatient (IN) | payer OTHER ==
[~2023-09-26] VITALS: Ht 170.2 cm; Wt 88.9 kg
[~2023-09-26 20:46] MED LIST changes: +CEFP100T PO
[2023-09-26 22:23] LABS: VENOUS BASE EXCESS -0.4 (-2.0-2.0); VENOUS HCO3 23.4 MMOL/L (23.0-27.0); VENOUS O2 SATURATION 76.1 % (60.0-80.0); VENOUS PARTIAL PRESSURE CO2 35.1 mmHg (38.0-50.0); VENOUS PARTIAL PRESSURE O2 41.8 mmHg (30.0-50.0); VENOUS PH 7.442 UNITS (7.330-7.430); VENOUS STANDARD HCO3 23.8 MMOL/L; VENOUS TOTAL CO2 24.5 MMOL/L (24.0-28.0)
[2023-09-26 22:27] LABS: BASO % 0.6 % (0.0-1.0); EOS # 0.1 10^3/uL (0.0-0.5); EOS % 3.5 % (0.0-3.0); HEMATOCRIT 26.7 % (36.0-47.0); HEMOGLOBIN 9.3 g/dl (12.0-15.5); LYMPH # 0.5 10^3/uL (1.5-5.0); LYMPH % 31.2 % (24.0-44.0); MEAN CORPUSCULAR HEMOGLOBIN 32.7 pg (27.0-33.0); MEAN CORPUSCULAR HGB CONC 34.8 g/dl (32.0-36.5); MONO # 0.2 10^3/uL (0.0-0.8); MONO % 9.4 % (2.0-8.0); NEUTROPHILS % 54.7 % (36.0-66.0); PLATELET COUNT, AUTOMATED 156 10^3/uL (150-450); RED BLOOD COUNT 2.84 10^6/uL (4.00-5.40); WHITE BLOOD COUNT 1.7 10^3/uL (4.0-10.0)
[2023-09-26 22:28] LABS: NEUTROPHILS # 0.9 10^3/uL (1.5-8.5)
[2023-09-26] MEDS: NS 500 ML IV ONE (22:36)
[2023-09-26 22:40] LABS: INR 1.32; PARTIAL THROMBOPLASTIN TIME 25.3 SECONDS (24.8-34.2)
[2023-09-26 22:55] LABS: CK-MB VALUE MASS < 1.0 NG/ML (<3.6)
[2023-09-26 22:57] LABS: AMYLASE 130 U/L (30-118); CPK CREATINE PHOSPHOKINASE 24 U/L (34-145); MB/CK RELATIVE INDEX 4.16 (< OR =4)
[2023-09-26 22:58] LABS: ALBUMIN 3.4 G/DL (3.2-5.2); ALKALINE PHOSPHATASE 92 U/L (46-116); ALT/SGPT 25 U/L (7.0-40); AST/SGOT 27 U/L (<34); BILIRUBIN,DIRECT 0.5 MG/DL (<0.4); BILIRUBIN,TOTAL 1.2 MG/DL (0.3-1.2); BLOOD UREA NITROGEN 21 MG/DL (9-23); CALCIUM LEVEL 8.8 MG/DL (8.5-10.1); CARBON DIOXIDE LEVEL 26 MMOL/L (20-31); CHLORIDE LEVEL 101 MMOL/L (98-107); CREATININE FOR GFR 0.57 MG/DL (0.55-1.30); GLOMERULAR FILTRATION RATE > 60.0 (>51); GLUCOSE, FASTING 140 MG/DL (60-100); POTASSIUM SERUM 3.2 MMOL/L (3.5-5.1); SODIUM LEVEL 138 MMOL/L (136-145); TOTAL PROTEIN 6.1 G/DL (5.7-8.2)
[2023-09-26 23:04] LABS: PROCALCITONIN 0.13 ng/ml
[2023-09-27] MEDS: NS 1,000 ML IV ONE (00:08)
[2023-09-27] MEDS ORDERED: MAALOX 30 ML SUSP *UDC PO PRN (02:05)
[2023-09-27] MEDS ORDERED: MOM 30ML SUSPENSION UDC PO PRN (02:05)
[2023-09-27] MEDS ORDERED: ACETAMINOPHEN TAB 650MG DOSE (2X325MG) PO PRN (02:05)
[2023-09-27] MEDS ORDERED: HYDR-4571 PO (02:24)
[2023-09-27] MEDS ORDERED: RISATAB3 PO (02:24)
[2023-09-27] MEDS ORDERED: PROC10TA5 PO (02:24)
[2023-09-27] MEDS ORDERED: ONDA4TAB6 PO (02:24)
[2023-09-27] MEDS ORDERED: ANTI2TAB16 PO (02:24)
[2023-09-27] MEDS ORDERED: FOLI1TAB11 PO (02:24)
[2023-09-27] MEDS ORDERED: LIDO30CR18 TOP (02:24)
[2023-09-27] MEDS ORDERED: HOME MED LIST COMPLETE! XX SCH (02:25)
[2023-09-27 02:34] LABS: MAGNESIUM LEVEL 1.6 MG/DL (1.8-2.4)
[2023-09-27] MEDS ORDERED: ISOVUE-370 76% 100ML VIAL As Ordered ONE (02:53)
[2023-09-27] MEDS: MAG SULF 1GM/100ML (MAG RUN) 1 GM in IV 1 EA IV SCH (03:52)
[2023-09-27] MEDS: LR 1,000 ML IV SCH (03:53)
[2023-09-27] MEDS: CEFEPIME HCL 2 GM in D5W MINI-BAG PLUS 50 ML IV SCH (03:53)
[2023-09-27] MEDS: KCL 10MEQ/100ML SWI (KRUN) 10 MEQ in IV 1 EA IV SCH ×2 (04:56→17:54)
[2023-09-27] MEDS: POTASSIUM CHLORIDE 10MEQ SR TABLET PO ONE (06:35)
[2023-09-27] MEDS: NYSTATIN 500,000U/5ML SUSP UDC SS SCH (09:00)
[2023-09-27] MEDS: DOCUSATE SODIUM 100MG CAPSULE PO SCH (09:00)
[2023-09-27] MEDS: FILGRASTIM 480 MCG/0.8 ML SYRINGE **SC ADMINISTRATION ONLY SC SCH (12:16)
[2023-09-27 13:07] LABS: CORTISOL BASELINE 28.7 UG/DL (4.3-22.4)
[2023-09-27 13:08] LABS: BLOOD UREA NITROGEN 15 MG/DL (9-23); CALCIUM LEVEL 7.8 MG/DL (8.5-10.1); CARBON DIOXIDE LEVEL 24 MMOL/L (20-31); CHLORIDE LEVEL 104 MMOL/L (98-107); CREATININE FOR GFR 0.34 MG/DL (0.55-1.30); GLOMERULAR FILTRATION RATE > 60.0 (>51); GLUCOSE, FASTING 116 MG/DL (60-100); POTASSIUM SERUM 3.2 MMOL/L (3.5-5.1); SODIUM LEVEL 139 MMOL/L (136-145)
[2023-09-27 14:45] VITALS: BP 129/66; TEMP 98.6; O2SAT 98
[2023-09-27 17:00] VITALS: O2SAT 97
[2023-09-27] MEDS: VANCOMYCIN HCL 750 MG, VIAL MATE ADAPTER 1 EACH in D5W 250 ML IV ONE ×2 (17:27→18:46)
[2023-09-27] MEDS ORDERED: RIVAROXABAN 10MG TAB (XARELTO) PO SCH (18:00)
[2023-09-27] MEDS: SODIUM CHLORIDE 0.9% INJ 10 ML SYR IV PRN (18:27)
[2023-09-27] MEDS: NS 1,000 ML IV SCH (18:46)
[2023-09-27 19:50] VITALS: TEMP 98.4
[2023-09-27 20:04] VITALS: BP 97/67; O2SAT 96
[2023-09-27 20:05] VITALS: BP 100/60
[2023-09-27] MEDS ORDERED: PROHANCE 279.3MG/ML 15ML VIAL ONE (20:35)
[2023-09-27 22:10] LABS: HEMATOCRIT 23.9 % (36.0-47.0); HEMOGLOBIN 8.4 g/dl (12.0-15.5); MEAN CORPUSCULAR HEMOGLOBIN 33.1 pg (27.0-33.0); MEAN CORPUSCULAR HGB CONC 35.1 g/dl (32.0-36.5); MEAN CORPUSCULAR VOLUME 94.1 fl (80.0-96.0); RED BLOOD COUNT 2.54 10^6/uL (4.00-5.40); WHITE BLOOD COUNT 5.8 10^3/uL (4.0-10.0)
[2023-09-27 22:40] LABS: BLOOD UREA NITROGEN 13 MG/DL (9-23); CALCIUM LEVEL 7.7 MG/DL (8.5-10.1); CARBON DIOXIDE LEVEL 22 MMOL/L (20-31); CHLORIDE LEVEL 103 MMOL/L (98-107); CREATININE FOR GFR 0.38 MG/DL (0.55-1.30); GLOMERULAR FILTRATION RATE > 60.0 (>51); GLUCOSE, FASTING 114 MG/DL (60-100); MAGNESIUM LEVEL 1.8 MG/DL (1.8-2.4); POTASSIUM SERUM 3.4 MMOL/L (3.5-5.1); SODIUM LEVEL 139 MMOL/L (136-145)
[2023-09-27] MEDS: HEPARIN SOD (PORCINE) 5000UNITS/ML 1ML VIAL/SYRINGE SC SCH (22:41)
[2023-09-27] MEDS: NYSTATIN 100,000 UNITS/GM TOPICAL PWD 15GM TOP SCH (22:41)
[2023-09-27 22:51] LABS: PLATELET COUNT, AUTOMATED 95 10^3/uL (150-450)
[2023-09-27 22:55] LABS: ANISOCYTOSIS 1+; ATYPICAL LYMPH 2 % (0-5); EOSINOPHILS 2 % (0-3); LYMPHOCYTES 5 % (16-44); MONOCYTES 5 % (0-5); NEUTROPHILS 84 % (28-66); PLATELET ESTIMATE DECREASED (NORMAL)
[2023-09-27 22:56] LABS: POIKILOCYTOSIS 1+; TEAR DROP CELLS 1+
[2023-09-28] VITALS (10 sets, daily range): BP systolic 100–125; BP diastolic 60–73; TEMP 97.6–98.8; O2SAT 95–99
[2023-09-28] MEDS: NS 1,000 ML IV ONE ×3 (00:22→03:20)
[2023-09-28] MEDS: KCL 40MEQ IN D5/NS 1000ML 1,000 ML IV SCH (01:22)
[2023-09-28] MEDS: VANCOMYCIN HCL 750 MG, VIAL MATE ADAPTER 1 EACH in D5W 250 ML IV SCH (02:27)
[2023-09-28] MEDS: VANCOMYCIN HCL 500 MG in D5W MINI-BAG PLUS 100 ML IV SCH (03:41)
[2023-09-28] MEDS: FOLIC ACID 1MG TAB PO SCH (08:35)
[2023-09-28] MEDS ORDERED: NORCO, ANEXSIA 5/325MG TABLET (HYDROcodone/ACETAMINOPHEN) PO PRN (08:45)
[2023-09-28] MEDS ORDERED: ENOXAPARIN 40MG/0.4ML SYRINGE (J1650 PER 10MG) SC SCH (09:00)
[2023-09-28] MEDS ORDERED: SODIUM CHLORIDE 0.9% INJ 10 ML SYR IV SCH (09:00)
[2023-09-28] MEDS: MORPHINE 2 MG/ML 1ML VIAL IV PRN (09:39)
[2023-09-28 10:00] LABS: BASO % 0.2 % (0.0-1.0); EOS # 0.1 10^3/uL (0.0-0.5); EOS % 1.9 % (0.0-3.0); LYMPH # 0.6 10^3/uL (1.5-5.0); LYMPH % 13.1 % (24.0-44.0); MEAN CORPUSCULAR HEMOGLOBIN 33.5 pg (27.0-33.0); MEAN CORPUSCULAR HGB CONC 35.2 g/dl (32.0-36.5); MEAN CORPUSCULAR VOLUME 95.1 fl (80.0-96.0); MONO # 0.2 10^3/uL (0.0-0.8); MONO % 3.8 % (2.0-8.0); NEUTROPHILS # 3.2 10^3/uL (1.5-8.5); NEUTROPHILS % 67.5 % (36.0-66.0); RED BLOOD COUNT 2.03 10^6/uL (4.00-5.40); WHITE BLOOD COUNT 4.8 10^3/uL (4.0-10.0)
[2023-09-28 10:01] LABS: HEMATOCRIT 19.3 % (36.0-47.0); PLATELET COUNT, AUTOMATED 73 10^3/uL (150-450)
[2023-09-28 10:03] LABS: HEMOGLOBIN 6.8 g/dl (12.0-15.5)
[2023-09-28 10:24] LABS: BLOOD UREA NITROGEN 9 MG/DL (9-23); CALCIUM LEVEL 7.3 MG/DL (8.5-10.1); CARBON DIOXIDE LEVEL 19 MMOL/L (20-31); CHLORIDE LEVEL 109 MMOL/L (98-107); CREATININE FOR GFR 0.35 MG/DL (0.55-1.30); GLOMERULAR FILTRATION RATE > 60.0 (>51); GLUCOSE, FASTING 143 MG/DL (60-100); MAGNESIUM LEVEL 1.5 MG/DL (1.8-2.4); POTASSIUM SERUM 3.4 MMOL/L (3.5-5.1); SODIUM LEVEL 140 MMOL/L (136-145)
[2023-09-28 10:31] LABS: PROCALCITONIN 0.15 ng/ml
[2023-09-28] MEDS ORDERED: NALOXONE 2MG/2ML SYRINGE IV STA (11:39)
[2023-09-28] MEDS: NALOXONE INJ 0.4MG/1ML VIAL IV STA (11:54)
[2023-09-28 13:38] LABS: VENOUS BASE EXCESS -5.4 (-2.0-2.0); VENOUS HCO3 18.6 MMOL/L (23.0-27.0); VENOUS O2 SATURATION 91.1 % (60.0-80.0); VENOUS PARTIAL PRESSURE CO2 30.4 mmHg (38.0-50.0); VENOUS PARTIAL PRESSURE O2 64.5 mmHg (30.0-50.0); VENOUS PH 7.405 UNITS (7.330-7.430); VENOUS STANDARD HCO3 19.8 MMOL/L; VENOUS TOTAL CO2 19.6 MMOL/L (24.0-28.0)
[2023-09-28] MEDS: MAG SULF 1GM/100ML (MAG RUN) 1 GM in IV 1 EA IV SCH (16:55)
[2023-09-28 17:14] LABS: HEMOGLOBIN 7.1 g/dl (12.0-15.5)
[2023-09-28 17:21] LABS: HEMATOCRIT 20.2 % (36.0-47.0)
[2023-09-28] MEDS: KCL 10MEQ/100ML SWI (KRUN) 10 MEQ in IV 1 EA IV SCH (18:39)
[2023-09-28 20:51] LABS: HEMATOCRIT 22.2 % (36.0-47.0); HEMOGLOBIN 7.7 g/dl (12.0-15.5)
[2023-09-29] VITALS (20 sets, daily range): BP systolic 105–134; BP diastolic 57–77; TEMP 96.9–98.6; O2SAT 94–100
[2023-09-29 00:41] LABS: HEMATOCRIT 21.4 % (36.0-47.0); HEMOGLOBIN 7.4 g/dl (12.0-15.5)
[2023-09-29 04:51] LABS: BASO % 0.4 % (0.0-1.0); EOS # 0.1 10^3/uL (0.0-0.5); EOS % 2.2 % (0.0-3.0); HEMOGLOBIN 7.1 g/dl (12.0-15.5); LYMPH # 0.5 10^3/uL (1.5-5.0); MEAN CORPUSCULAR HEMOGLOBIN 32.3 pg (27.0-33.0); MEAN CORPUSCULAR HGB CONC 34.5 g/dl (32.0-36.5); MEAN CORPUSCULAR VOLUME 93.6 fl (80.0-96.0); MONO # 0.1 10^3/uL (0.0-0.8); NEUTROPHILS # 1.8 10^3/uL (1.5-8.5); NEUTROPHILS % 64.5 % (36.0-66.0); WHITE BLOOD COUNT 2.7 10^3/uL (4.0-10.0)
[2023-09-29 04:52] LABS: HEMATOCRIT 20.6 % (36.0-47.0)
[2023-09-29 04:53] LABS: PLATELET COUNT, AUTOMATED 58 10^3/uL (150-450)
[2023-09-29 05:16] LABS: BLOOD UREA NITROGEN 6 MG/DL (9-23); CALCIUM LEVEL 7.8 MG/DL (8.5-10.1); CARBON DIOXIDE LEVEL 21 MMOL/L (20-31); CHLORIDE LEVEL 107 MMOL/L (98-107); CREATININE FOR GFR 0.36 MG/DL (0.55-1.30); GLOMERULAR FILTRATION RATE > 60.0 (>51); GLUCOSE, FASTING 187 MG/DL (60-100); MAGNESIUM LEVEL 1.9 MG/DL (1.8-2.4); POTASSIUM SERUM 3.8 MMOL/L (3.5-5.1); SODIUM LEVEL 139 MMOL/L (136-145)
[2023-09-29 05:17] LABS: TOTAL 25(OH) VITAMIN D 7.7 NG/ML (20.0-100.0)
[2023-09-29 05:18] LABS: FOLATE 7.4 NG/ML (>5.4); VITAMIN B12 LEVEL 1724 PG/ML (211-911)
[2023-09-29 08:05] LABS: HEMOGLOBIN 7.2 g/dl (12.0-15.5)
[2023-09-29 08:14] LABS: HEMATOCRIT 20.8 % (36.0-47.0)
[2023-09-29 10:24] LABS: IRON (FE) 147 UG/DL (50-170); PERCENT SATURATION 74.2 % (13.2-45.0); TOTAL IRON BINDING CAPACITY 198 UG/DL (250-425)
[2023-09-29] MEDS ORDERED: SODIUM CHLORIDE 0.9% INJ 10 ML SYR IV PRN (12:05)
[2023-09-29] MEDS: THIAMINE 200MG 2ML VIAL IM SCH (12:54)
[2023-09-29 13:52] LABS: HEMATOCRIT 22.5 % (36.0-47.0); HEMOGLOBIN 7.5 g/dl (12.0-15.5)
[2023-09-29] MEDS: PANTOPRAZOLE 40MG VIAL IV SCH (15:15)
[2023-09-29] MEDS: ACETAMINOPHEN *IV* 1,000 MG in IV 1 EA IV ONE (16:04)
[2023-09-29] MEDS: POTASSIUM PHOSPHATE INJ 30 MMOL in D5W 500 ML IV ONE (17:33)
[2023-09-29] MEDS: THIAMINE INJection 500 MG in NS 100 ML IV ONE (18:55)
[2023-09-30] VITALS (33 sets, daily range): BP systolic 109–147; BP diastolic 72–86; TEMP 96.3–98.2; O2SAT 94–100
[2023-09-30] MEDS: ACETAMINOPHEN *IV* 1,000 MG in IV 1 EA IV ONE ×3 (01:19→17:05)
[2023-09-30 04:28] LABS: BASO % 0.4 % (0.0-1.0); EOS # 0.1 10^3/uL (0.0-0.5); EOS % 3.8 % (0.0-3.0); LYMPH # 0.7 10^3/uL (1.5-5.0); LYMPH % 28.8 % (24.0-44.0); MEAN CORPUSCULAR HGB CONC 32.8 g/dl (32.0-36.5); MEAN CORPUSCULAR VOLUME 97.6 fl (80.0-96.0); MONO # 0.1 10^3/uL (0.0-0.8); MONO % 5.8 % (2.0-8.0); NEUTROPHILS # 1.5 10^3/uL (1.5-8.5); NEUTROPHILS % 60.4 % (36.0-66.0); RED BLOOD COUNT 2.06 10^6/uL (4.00-5.40); WHITE BLOOD COUNT 2.4 10^3/uL (4.0-10.0)
[2023-09-30 04:35] LABS: HEMATOCRIT 20.1 % (36.0-47.0); HEMOGLOBIN 6.6 g/dl (12.0-15.5); PLATELET COUNT, AUTOMATED 49 10^3/uL (150-450)
[2023-09-30 04:51] LABS: BLOOD UREA NITROGEN < 5 MG/DL (9-23); CALCIUM LEVEL 7.3 MG/DL (8.5-10.1); CARBON DIOXIDE LEVEL 25 MMOL/L (20-31); CHLORIDE LEVEL 110 MMOL/L (98-107); CREATININE FOR GFR 0.34 MG/DL (0.55-1.30); GLOMERULAR FILTRATION RATE > 60.0 (>51); GLUCOSE, FASTING 146 MG/DL (60-100); MAGNESIUM LEVEL 1.5 MG/DL (1.8-2.4); PHOSPHORUS LEVEL 1.9 MG/DL (2.5-4.9); POTASSIUM SERUM 3.9 MMOL/L (3.5-5.1); SODIUM LEVEL 141 MMOL/L (136-145)
[2023-09-30 05:12] LABS: HEMATOCRIT 19.1 % (36.0-47.0); HEMOGLOBIN 6.5 g/dl (12.0-15.5)
[2023-09-30] MEDS: MAG SULF 1GM/100ML (MAG RUN) 1 GM in IV 1 EA IV SCH (06:06)
[2023-09-30] MEDS: SODIUM CHLORIDE 0.9% INJ 10 ML SYR IV SCH (08:01)
[2023-09-30] MEDS: THIAMINE INJection 500 MG in NS 100 ML IV SCH (09:10)
[2023-09-30] MEDS: POTASSIUM PHOSPHATE INJ 30 MMOL in D5W 500 ML IV ONE (09:26)
[2023-09-30 13:41] LABS: HEMATOCRIT 27.7 % (36.0-47.0)
[2023-09-30 13:43] LABS: HEMOGLOBIN 9.5 g/dl (12.0-15.5)
[2023-09-30 14:07] LABS: VANCOMYCIN LEVEL TROUGH 17.4 UG/ML (10.0-20.0)
[2023-09-30 14:10] LABS: PHOSPHORUS LEVEL 4.3 MG/DL (2.5-4.9)
[2023-09-30 18:04] LABS: HEMATOCRIT 29.6 % (36.0-47.0); HEMOGLOBIN 10.1 g/dl (12.0-15.5)
[2023-09-30 20:52] LABS: HEMATOCRIT 27.3 % (36.0-47.0); HEMOGLOBIN 9.5 g/dl (12.0-15.5)
[2023-09-30 21:12] LABS: BLOOD UREA NITROGEN < 5 MG/DL (9-23); CALCIUM LEVEL 7.9 MG/DL (8.5-10.1); CARBON DIOXIDE LEVEL 26 MMOL/L (20-31); CHLORIDE LEVEL 109 MMOL/L (98-107); CREATININE FOR GFR 0.34 MG/DL (0.55-1.30); GLOMERULAR FILTRATION RATE > 60.0 (>51); GLUCOSE, FASTING 117 MG/DL (60-100); MAGNESIUM LEVEL 1.8 MG/DL (1.8-2.4); POTASSIUM SERUM 4.2 MMOL/L (3.5-5.1); SODIUM LEVEL 141 MMOL/L (136-145)
[2023-10-01] VITALS (31 sets, daily range): BP systolic 98–122; BP diastolic 56–70; TEMP 97–97.8; O2SAT 93–99
[2023-10-01] MEDS: VANCOMYCIN HCL 1,000 MG, VIAL MATE ADAPTER 1 EACH in D5W 250 ML IV SCH (00:09)
[2023-10-01] MEDS: ACETAMINOPHEN *IV* 1,000 MG in IV 1 EA IV ONE ×3 (00:44→20:46)
[2023-10-01 00:52] LABS: HEMATOCRIT 27.9 % (36.0-47.0); HEMOGLOBIN 9.7 g/dl (12.0-15.5)
[2023-10-01 05:15] LABS: HEMATOCRIT 28.5 % (36.0-47.0); HEMOGLOBIN 9.7 g/dl (12.0-15.5)
[2023-10-01 05:22] LABS: BASO % 0.5 % (0.0-1.0); EOS # 0.1 10^3/uL (0.0-0.5); EOS % 3.7 % (0.0-3.0); HEMOGLOBIN 9.8 g/dl (12.0-15.5); LYMPH # 0.9 10^3/uL (1.5-5.0); LYMPH % 40.1 % (24.0-44.0); MEAN CORPUSCULAR HEMOGLOBIN 31.1 pg (27.0-33.0); MEAN CORPUSCULAR HGB CONC 33.8 g/dl (32.0-36.5); MEAN CORPUSCULAR VOLUME 92.1 fl (80.0-96.0); MONO # 0.2 10^3/uL (0.0-0.8); MONO % 10.1 % (2.0-8.0); NEUTROPHILS % 45.6 % (36.0-66.0); RED BLOOD COUNT 3.15 10^6/uL (4.00-5.40); WHITE BLOOD COUNT 2.2 10^3/uL (4.0-10.0)
[2023-10-01 05:40] LABS: BLOOD UREA NITROGEN < 5 MG/DL (9-23); CALCIUM LEVEL 7.9 MG/DL (8.5-10.1); CARBON DIOXIDE LEVEL 27 MMOL/L (20-31); CHLORIDE LEVEL 107 MMOL/L (98-107); CREATININE FOR GFR 0.37 MG/DL (0.55-1.30); GLOMERULAR FILTRATION RATE > 60.0 (>51); GLUCOSE, FASTING 108 MG/DL (60-100); MAGNESIUM LEVEL 1.8 MG/DL (1.8-2.4); POTASSIUM SERUM 4.1 MMOL/L (3.5-5.1); SODIUM LEVEL 139 MMOL/L (136-145)
[2023-10-01 05:50] LABS: PLATELET COUNT, AUTOMATED 44 10^3/uL (150-450)
[2023-10-01] MEDS: POTASSIUM PHOSPHATE INJ 30 MMOL in D5W 500 ML IV ONE (11:13)
[2023-10-01] MEDS: ALPRAZolam 0.25 MG TAB PO PRN (16:40)
[2023-10-02] VITALS (25 sets, daily range): BP systolic 101–143; BP diastolic 65–83; TEMP 97.1–97.8; O2SAT 92–100
[2023-10-02] MEDS: ACETAMINOPHEN *IV* 1,000 MG in IV 1 EA IV ONE (03:20)
[2023-10-02 05:56] LABS: BASO % 0.4 % (0.0-1.0); EOS # 0.1 10^3/uL (0.0-0.5); EOS % 3.5 % (0.0-3.0); HEMATOCRIT 27.5 % (36.0-47.0); HEMOGLOBIN 9.3 g/dl (12.0-15.5); LYMPH # 0.8 10^3/uL (1.5-5.0); LYMPH % 32.3 % (24.0-44.0); MEAN CORPUSCULAR HEMOGLOBIN 31.1 pg (27.0-33.0); MEAN CORPUSCULAR HGB CONC 33.8 g/dl (32.0-36.5); MONO # 0.3 10^3/uL (0.0-0.8); MONO % 10.5 % (2.0-8.0); NEUTROPHILS # 1.4 10^3/uL (1.5-8.5); NEUTROPHILS % 52.5 % (36.0-66.0); RED BLOOD COUNT 2.99 10^6/uL (4.00-5.40); WHITE BLOOD COUNT 2.6 10^3/uL (4.0-10.0)
[2023-10-02 05:57] LABS: PLATELET COUNT, AUTOMATED 46 10^3/uL (150-450)
[2023-10-02 06:17] LABS: ALBUMIN 2.3 G/DL (3.2-5.2); ALKALINE PHOSPHATASE 90 U/L (46-116); ALT/SGPT 40 U/L (7.0-40); AST/SGOT 40 U/L (<34); BILIRUBIN,TOTAL 0.7 MG/DL (0.3-1.2); BLOOD UREA NITROGEN < 5 MG/DL (9-23); CALCIUM LEVEL 7.9 MG/DL (8.5-10.1); CARBON DIOXIDE LEVEL 24 MMOL/L (20-31); CARBON DIOXIDE LEVEL 25 MMOL/L (20-31); CHLORIDE LEVEL 108 MMOL/L (98-107); CHLORIDE LEVEL 109 MMOL/L (98-107); CREATININE FOR GFR 0.37 MG/DL (0.55-1.30); GLOMERULAR FILTRATION RATE > 60.0 (>51); GLUCOSE, FASTING 100 MG/DL (60-100); GLUCOSE, FASTING 105 MG/DL (60-100); MAGNESIUM LEVEL 1.5 MG/DL (1.8-2.4); POTASSIUM SERUM 4.3 MMOL/L (3.5-5.1); POTASSIUM SERUM 4.4 MMOL/L (3.5-5.1); SODIUM LEVEL 139 MMOL/L (136-145); SODIUM LEVEL 142 MMOL/L (136-145); TOTAL PROTEIN 4.5 G/DL (5.7-8.2)
[2023-10-02] MEDS: MAG SULF 1GM/100ML (MAG RUN) 1 GM in IV 1 EA IV SCH (09:12)
[2023-10-02 17:02] LABS: MAGNESIUM LEVEL 2.1 MG/DL (1.8-2.4); PHOSPHORUS LEVEL 3.6 MG/DL (2.5-4.9)
[2023-10-02 17:49] LABS: C REACTIVE PROTEIN QUANTITATIV 1.2 MG/DL (<1.0)
[2023-10-02] MEDS: SODIUM CHLORIDE 0.9% INJ 10 ML SYR IV SCH (18:00)
[2023-10-02] MEDS ORDERED: HYDROcodone/APAP LIQUID 7.5-325MG 15ML UDC (LORTAB ELIXIR) PO PRN (18:10)
[2023-10-02] MEDS: MULTIVITAMIN -ADULT INJECTION 10 ML, ZINC/COPPER/MANGANESE/SELENIUM 1 ML in AMINO AC/EL... IV SCH (18:46)
[2023-10-02] MEDS: FAT EMULSION IV 250 ML IV ONE (18:47)
[2023-10-02] MEDS: INSULIN LISPRO (NovoLOG) PER UNIT SC SCH (19:07)
[2023-10-02] MEDS: methylPREDNISolone 500 MG, VIAL MATE ADAPTER 1 EACH in NS 250 ML IV ONE (21:10)
[2023-10-03] VITALS (15 sets, daily range): BP systolic 118–145; BP diastolic 62–72; TEMP 97.4–98.3; O2SAT 93–100
[2023-10-03] MEDS: ACETAMINOPHEN *IV* 1,000 MG in IV 1 EA IV ONE (05:02)
[2023-10-03 06:21] LABS: HEMATOCRIT 28.1 % (36.0-47.0); HEMOGLOBIN 9.6 g/dl (12.0-15.5); LYMPH # 0.1 10^3/uL (1.5-5.0); LYMPH % 11.8 % (24.0-44.0); MEAN CORPUSCULAR HEMOGLOBIN 31.2 pg (27.0-33.0); MEAN CORPUSCULAR HGB CONC 34.2 g/dl (32.0-36.5); MEAN CORPUSCULAR VOLUME 91.2 fl (80.0-96.0); MONO % 1.7 % (2.0-8.0); NEUTROPHILS % 85.7 % (36.0-66.0); RED BLOOD COUNT 3.08 10^6/uL (4.00-5.40); WHITE BLOOD COUNT 1.2 10^3/uL (4.0-10.0)
[2023-10-03 06:24] LABS: PLATELET COUNT, AUTOMATED 44 10^3/uL (150-450)
[2023-10-03 06:28] LABS: BLOOD UREA NITROGEN < 5 MG/DL (9-23); CALCIUM LEVEL 8.5 MG/DL (8.5-10.1); CARBON DIOXIDE LEVEL 19 MMOL/L (20-31); CHLORIDE LEVEL 105 MMOL/L (98-107); CREATININE FOR GFR 0.38 MG/DL (0.55-1.30); GLOMERULAR FILTRATION RATE > 60.0 (>51); GLUCOSE, FASTING 242 MG/DL (60-100); MAGNESIUM LEVEL 1.6 MG/DL (1.8-2.4); POTASSIUM SERUM 3.8 MMOL/L (3.5-5.1); SODIUM LEVEL 137 MMOL/L (136-145)
[2023-10-03] MEDS ORDERED: NEUTRA-PHOS 1.5 GM PACKET PO SCH (08:00)
[2023-10-03 09:16] LABS: ABG BASE EXCESS -4.1 (-2.0-2.0); ABG HCO3 16.8 MMOL/L (22.0-26.0); ABG PARTIAL PRESSURE CO2 19.7 mmHg (35.0-45.0); ABG PARTIAL PRESSURE O2 108.7 mmHg (75.0-100.0); ABG STANDARD HCO3 21.1 MMOL/L. (22.0-26.0); ABG TOTAL CO2 17.4 MMOL/L (22.0-29.0); ABG pH (ARTERIAL) 7.548 UNITS (7.350-7.450)
[2023-10-03] MEDS: VANCOMYCIN HCL 750 MG, VIAL MATE ADAPTER 1 EACH in D5W 250 ML IV SCH (11:45)
[2023-10-03] MEDS: KETOROLAC 30 MG/ML 1ML VIAL IV PRN (11:51)
[2023-10-03] MEDS: POTASSIUM PHOSPHATE INJ 30 MMOL in D5W 500 ML IV ONE (15:08)
[2023-10-03] MEDS: INSULIN LISPRO (NovoLOG) PER UNIT SC SCH (17:56)
[2023-10-03] MEDS: FAT EMULSION IV 250 ML IV ONE (17:56)
[2023-10-03] MEDS: AMINO AC/ELECTROLYTE/DEX/CALC 1,000 ML IV SCH (17:57)
[2023-10-03] MEDS: methylPREDNISolone 125MG 2ML VIAL IV SCH (20:22)
[2023-10-04] MEDS: LORazepam 2 MG/ML 1ML VIAL IV PRN (03:19)
[2023-10-04] MEDS: ONDANSETRON 4MG 2ML VIAL IV PRN (05:27)
[2023-10-04 06:00] VITALS: BP 122/71; TEMP 97.9; O2SAT 97
[2023-10-04 06:05] LABS: HEMATOCRIT 24.3 % (36.0-47.0); HEMOGLOBIN 8.9 g/dl (12.0-15.5); LYMPH # 0.2 10^3/uL (1.5-5.0); LYMPH % 14.2 % (24.0-44.0); MEAN CORPUSCULAR HEMOGLOBIN 34.1 pg (27.0-33.0); MEAN CORPUSCULAR HGB CONC 36.6 g/dl (32.0-36.5); MEAN CORPUSCULAR VOLUME 93.1 fl (80.0-96.0); MONO # 0.2 10^3/uL (0.0-0.8); MONO % 14.9 % (2.0-8.0); NEUTROPHILS % 69.5 % (36.0-66.0); RED BLOOD COUNT 2.61 10^6/uL (4.00-5.40); WHITE BLOOD COUNT 1.5 10^3/uL (4.0-10.0)
[2023-10-04 06:12] LABS: PLATELET COUNT, AUTOMATED 48 10^3/uL (150-450)
[2023-10-04 07:32] LABS: BLOOD UREA NITROGEN < 5 MG/DL (9-23); CALCIUM LEVEL 8.3 MG/DL (8.5-10.1); CARBON DIOXIDE LEVEL 24 MMOL/L (20-31); CHLORIDE LEVEL 111 MMOL/L (98-107); CREATININE FOR GFR 0.34 MG/DL (0.55-1.30); GLOMERULAR FILTRATION RATE > 60.0 (>51); GLUCOSE, FASTING 119 MG/DL (60-100); MAGNESIUM LEVEL 1.5 MG/DL (1.8-2.4); POTASSIUM SERUM 4.1 MMOL/L (3.5-5.1); SODIUM LEVEL 142 MMOL/L (136-145)
[2023-10-04] MEDS ORDERED: LORazepam 2 MG/ML 1ML VIAL IV PRN (08:10)
[2023-10-04] MEDS ORDERED: valACYclovir HCL 500 MG TAB PO SCH (09:00)
[2023-10-04] MEDS: ARTIFICIAL TEARS DROPS 15ML BTL (VISINE DRY RELIEF) OU SCH (09:21)
[2023-10-04] MEDS: ACYCLOVIR 1,000 MG in D5W 250 ML IV SCH (12:00)
[2023-10-04] MEDS: VANCOMYCIN HCL 1,000 MG, VIAL MATE ADAPTER 1 EACH in D5W 250 ML IV SCH (12:28)
[2023-10-04] MEDS: NS 1,000 ML IV SCH (13:47)
[2023-10-04 14:00] VITALS: BP 124/84; TEMP 97.9; O2SAT 96
[2023-10-04] MEDS: diphenhydrAMINE 50MG/ML VIAL IV STA (16:09)
[2023-10-04] MEDS: LORazepam 2 MG/ML 1ML VIAL IV STA (16:14)
[2023-10-04] MEDS: INSULIN LISPRO (NovoLOG) PER UNIT SC SCH (18:00)
[2023-10-04] MEDS: FAT EMULSION IV 250 ML IV ONE (18:27)
[2023-10-04] MEDS: MULTIVITAMIN -ADULT INJECTION 10 ML, ZINC/COPPER/MANGANESE/SELENIUM 1 ML in AMINO AC/EL... IV SCH (18:27)
[2023-10-04] MEDS: D5W/0.45% SODIUM CHLORIDE 1,000 ML IV SCH (18:48)
[2023-10-04 19:58] LABS: BLOOD UREA NITROGEN 6 MG/DL (9-23); CALCIUM LEVEL 8.2 MG/DL (8.5-10.1); CARBON DIOXIDE LEVEL 26 MMOL/L (20-31); CHLORIDE LEVEL 108 MMOL/L (98-107); CREATININE FOR GFR 0.44 MG/DL (0.55-1.30); GLOMERULAR FILTRATION RATE > 60.0 (>51); GLUCOSE, FASTING 141 MG/DL (60-100); MAGNESIUM LEVEL 1.6 MG/DL (1.8-2.4); POTASSIUM SERUM 3.4 MMOL/L (3.5-5.1); SODIUM LEVEL 138 MMOL/L (136-145)
[2023-10-04 20:00] VITALS: BP 93/60; TEMP 97.2; O2SAT 98
[2023-10-05 06:00] VITALS: BP 132/85; TEMP 97.2; O2SAT 96
[2023-10-05] MEDS: SODIUM CHLORIDE 0.9% INJ 10 ML SYR IV PRN (07:44)
[2023-10-05 10:31] LABS: HEMATOCRIT 26.1 % (36.0-47.0); HEMOGLOBIN 8.8 g/dl (12.0-15.5); LYMPH # 0.2 10^3/uL (1.5-5.0); LYMPH % 7.6 % (24.0-44.0); MEAN CORPUSCULAR HEMOGLOBIN 31.4 pg (27.0-33.0); MEAN CORPUSCULAR HGB CONC 33.7 g/dl (32.0-36.5); MEAN CORPUSCULAR VOLUME 93.2 fl (80.0-96.0); MONO # 0.6 10^3/uL (0.0-0.8); MONO % 30.5 % (2.0-8.0); NEUTROPHILS # 1.2 10^3/uL (1.5-8.5); NEUTROPHILS % 60.9 % (36.0-66.0)
[2023-10-05 10:35] LABS: PLATELET COUNT, AUTOMATED 88 10^3/uL (150-450)
[2023-10-05 11:16] LABS: PROCALCITONIN 0.16 ng/ml
[2023-10-05] MEDS: diphenhydrAMINE 50MG/ML VIAL IV ONE (11:19)
[2023-10-05 11:21] LABS: ALBUMIN 2.5 G/DL (3.2-5.2); BLOOD UREA NITROGEN 10 MG/DL (9-23); CALCIUM LEVEL 8.3 MG/DL (8.5-10.1); CARBON DIOXIDE LEVEL 22 MMOL/L (20-31); CHLORIDE LEVEL 108 MMOL/L (98-107); CREATININE FOR GFR 0.95 MG/DL (0.55-1.30); GLOMERULAR FILTRATION RATE > 60.0 (>51); GLUCOSE, FASTING 81 MG/DL (60-100); MAGNESIUM LEVEL 1.3 MG/DL (1.8-2.4); PHOSPHORUS LEVEL 3.7 MG/DL (2.5-4.9); POTASSIUM SERUM 3.7 MMOL/L (3.5-5.1); SODIUM LEVEL 142 MMOL/L (136-145)
[2023-10-05 12:17] LABS: VANCOMYCIN RANDOM 32.4 UG/ML
[2023-10-05 12:18] LABS: CALCIUM LEVEL 8.6 MG/DL (8.5-10.1); CREATININE FOR GFR 1.01 MG/DL (0.55-1.30); GLOMERULAR FILTRATION RATE 59.9 (>51); POTASSIUM SERUM 3.7 MMOL/L (3.5-5.1)
[2023-10-05] MEDS: diphenhydrAMINE CREAM 30GM TOP PRN (12:37)
[2023-10-05] MEDS: TRIAMCINOLONE ACET 0.1% OINTMENT 15GM TOP SCH (12:38)
[2023-10-05 14:00] VITALS: BP 147/99; TEMP 97.9; O2SAT 99
[2023-10-05] MEDS: MAG SULF 1GM/100ML (MAG RUN) 1 GM in IV 1 EA IV SCH (14:31)
[2023-10-05] MEDS: KCL 10MEQ/100ML SWI (KRUN) 10 MEQ in IV 1 EA IV SCH (16:55)
[2023-10-05] MEDS: INSULIN LISPRO (NovoLOG) PER UNIT SC SCH (17:50)
[2023-10-05] MEDS: FAT EMULSION IV 250 ML IV ONE (18:03)
[2023-10-05] MEDS: AMINO AC/ELECTROLYTE/DEX/CALC 2,000 ML IV SCH (18:03)
[2023-10-05 21:00] VITALS: BP 133/88; TEMP 97.9; O2SAT 95
[2023-10-06] MEDS: NS IV SCH ×2 (01:36→22:50)
[2023-10-06] MEDS: ACYCLOVIR IV SCH ×2 (01:36→22:50)
[2023-10-06] MEDS ORDERED: ALPRAZolam 0.25 MG TAB PO ONE (02:00)
[2023-10-06] MEDS: LORazepam 2 MG/ML 1ML VIAL IV ONE (02:32)
[2023-10-06 06:00] VITALS: BP 132/85; TEMP 97.7; O2SAT 96
[2023-10-06] MEDS ORDERED: ENOXAPARIN 40MG/0.4ML SYRINGE (J1650 PER 10MG) SC SCH (13:10)
[2023-10-06 14:00] VITALS: BP 122/68; TEMP 97.2; O2SAT 97
[2023-10-06] MEDS: HEPARIN SOD (PORCINE) 5000UNITS/ML 1ML VIAL/SYRINGE SQ SCH (14:00)
[2023-10-06] MEDS: MULTIVITAMIN -ADULT INJECTION 10 ML, ZINC/COPPER/MANGANESE/SELENIUM 1 ML in AMINO AC/EL... IV SCH (18:00)
[2023-10-06] MEDS: FAT EMULSION IV 250 ML IV ONE (18:00)
[2023-10-06] MEDS: INSULIN LISPRO (NovoLOG) PER UNIT SC SCH (19:02)
[2023-10-06] MEDS: LORazepam 2 MG/ML 1ML VIAL IV STA (22:50)
[2023-10-06] MEDS: diphenhydrAMINE 50MG/ML VIAL IV STA (22:50)
[2023-10-07 05:46] LABS: EOS % 1.8 % (0.0-3.0); HEMATOCRIT 22.6 % (36.0-47.0); HEMOGLOBIN 7.5 g/dl (12.0-15.5); LYMPH # 0.5 10^3/uL (1.5-5.0); LYMPH % 24.1 % (24.0-44.0); MEAN CORPUSCULAR HEMOGLOBIN 32.5 pg (27.0-33.0); MEAN CORPUSCULAR HGB CONC 33.2 g/dl (32.0-36.5); MEAN CORPUSCULAR VOLUME 97.8 fl (80.0-96.0); MONO # 0.3 10^3/uL (0.0-0.8); MONO % 14.3 % (2.0-8.0); NEUTROPHILS # 1.3 10^3/uL (1.5-8.5); NEUTROPHILS % 59.4 % (36.0-66.0); RED BLOOD COUNT 2.31 10^6/uL (4.00-5.40); WHITE BLOOD COUNT 2.2 10^3/uL (4.0-10.0)
[2023-10-07 05:47] LABS: PLATELET COUNT, AUTOMATED 81 10^3/uL (150-450)
[2023-10-07 06:00] VITALS: BP 125/56; TEMP 97.9; O2SAT 98
[2023-10-07 06:11] LABS: CALCIUM LEVEL 7.8 MG/DL (8.5-10.1); CREATININE FOR GFR 1.84 MG/DL (0.55-1.30); POTASSIUM SERUM 3.5 MMOL/L (3.5-5.1)
[2023-10-07] MEDS: NS 1,000 ML IV ONE (07:55)
[2023-10-07 14:00] VITALS: BP 139/70; TEMP 98.1; O2SAT 97
[2023-10-07] MEDS: FAT EMULSION IV 250 ML IV ONE (18:28)
[2023-10-07] MEDS: AMINO AC/ELECTROLYTE/DEX/CALC 1,000 ML IV ONE (18:32)
[2023-10-07] MEDS: INSULIN LISPRO (NovoLOG) PER UNIT SC SCH (18:46)
[2023-10-07 21:00] VITALS: BP 127/67; TEMP 98.1; O2SAT 96
[2023-10-07] MEDS ORDERED: diphenhydrAMINE 50MG/ML VIAL IM ONE (22:10)
[2023-10-07] MEDS ORDERED: HALOPERIDOL LACTATE 5MG/ML VIAL As Ordered ONE (22:53)
[2023-10-07] MEDS: HALOPERIDOL LACTATE 5MG/ML VIAL IM ONE (23:02)
[2023-10-07] MEDS: diphenhydrAMINE 50MG/ML VIAL IV ONE (23:02)
[2023-10-08] MEDS: LORazepam 2 MG/ML 1ML VIAL IV ONE (00:48)
[2023-10-08 05:20] VITALS: BP 142/82; TEMP 97.5; O2SAT 99
[2023-10-08 05:54] LABS: HEMATOCRIT 24.3 % (36.0-47.0); LYMPH # 0.1 10^3/uL (1.5-5.0); LYMPH % 6.2 % (24.0-44.0); MEAN CORPUSCULAR HEMOGLOBIN 32.1 pg (27.0-33.0); MEAN CORPUSCULAR HGB CONC 32.9 g/dl (32.0-36.5); MEAN CORPUSCULAR VOLUME 97.6 fl (80.0-96.0); MONO # 0.1 10^3/uL (0.0-0.8); MONO % 3.1 % (2.0-8.0); NEUTROPHILS # 1.7 10^3/uL (1.5-8.5); NEUTROPHILS % 90.2 % (36.0-66.0); PLATELET COUNT, AUTOMATED 100 10^3/uL (150-450); RED BLOOD COUNT 2.49 10^6/uL (4.00-5.40); WHITE BLOOD COUNT 1.9 10^3/uL (4.0-10.0)
[2023-10-08 06:23] LABS: CALCIUM LEVEL 7.9 MG/DL (8.5-10.1); CREATININE FOR GFR 1.83 MG/DL (0.55-1.30); GLOMERULAR FILTRATION RATE 30.2 (>51); MAGNESIUM LEVEL 1.9 MG/DL (1.8-2.4); POTASSIUM SERUM 4.4 MMOL/L (3.5-5.1)
[2023-10-08 14:00] VITALS: BP 173/102; TEMP 98.4; O2SAT 98
[2023-10-08] MEDS ORDERED: cloNIDine 0.1MG TABLET PO ONE (16:00)
[2023-10-08] MEDS ORDERED: FUROSEMIDE 40MG/4ML VIAL IV ONE (16:00)
[2023-10-08] MEDS: AMINO AC/ELECTROLYTE/DEX/CALC 2,000 ML IV SCH (16:32)
[2023-10-08 17:05] VITALS: BP 150/82
[2023-10-08] MEDS: NITROGLYCERIN 2% OINT 1 GM *U/D* PKT TOP ONE (17:05)
[2023-10-08] MEDS: FAT EMULSION IV 250 ML IV ONE (18:12)
[2023-10-08] MEDS: INSULIN LISPRO (NovoLOG) PER UNIT SC SCH (18:12)
[2023-10-08] MEDS: AMINO AC/ELECTROLYTE/DEX/CALC 1,000 ML IV ONE (18:12)
[2023-10-08 19:42] VITALS: BP 186/84; TEMP 98.1; O2SAT 97
[2023-10-09 04:10] VITALS: BP 119/63; TEMP 97.9; O2SAT 96
[2023-10-09] MEDS: AMINO AC/ELECTROLYTE/DEX/CALC 2,000 ML IV SCH (04:32)
[2023-10-09 06:03] LABS: EOS # 0.1 10^3/uL (0.0-0.5); EOS % 3.1 % (0.0-3.0); HEMATOCRIT 21.9 % (36.0-47.0); HEMOGLOBIN 7.2 g/dl (12.0-15.5); LYMPH # 0.5 10^3/uL (1.5-5.0); LYMPH % 20.4 % (24.0-44.0); MEAN CORPUSCULAR HEMOGLOBIN 32.7 pg (27.0-33.0); MEAN CORPUSCULAR HGB CONC 32.9 g/dl (32.0-36.5); MEAN CORPUSCULAR VOLUME 99.5 fl (80.0-96.0); MONO # 0.4 10^3/uL (0.0-0.8); MONO % 17.3 % (2.0-8.0); NEUTROPHILS # 1.5 10^3/uL (1.5-8.5); NEUTROPHILS % 58.4 % (36.0-66.0); WHITE BLOOD COUNT 2.6 10^3/uL (4.0-10.0)
[2023-10-09 06:32] LABS: CALCIUM LEVEL 7.9 MG/DL (8.5-10.1); CREATININE FOR GFR 1.68 MG/DL (0.55-1.30); GLOMERULAR FILTRATION RATE 33.3 (>51); MAGNESIUM LEVEL 1.9 MG/DL (1.8-2.4); POTASSIUM SERUM 3.9 MMOL/L (3.5-5.1)
[2023-10-09 06:49] LABS: PLATELET COUNT, AUTOMATED 88 10^3/uL (150-450)
[2023-10-09 08:09] LABS: HEMATOCRIT 26.3 % (36.0-47.0); HEMOGLOBIN 8.5 g/dl (12.0-15.5)
[2023-10-09] MEDS: FUROSEMIDE 100MG/10ML VIAL IV ONE (13:14)
[2023-10-09 13:19] VITALS: BP 135/69; TEMP 98.1
[2023-10-09 14:36] VITALS: O2SAT 93
[2023-10-09] MEDS ORDERED: MULTIVITAMIN -ADULT INJECTION 10 ML, ZINC/COPPER/MANGANESE/SELENIUM 1 ML in AMINO AC/EL... IV SCH (18:00)
[2023-10-09] MEDS: INSULIN LISPRO (NovoLOG) PER UNIT SC SCH (18:00)
[2023-10-09] MEDS: FAT EMULSION IV 250 ML IV ONE (18:08)
[2023-10-09] MEDS: MULTIVITAMIN -ADULT INJECTION 10 ML, ZINC/COPPER/MANGANESE/SELENIUM 1 ML in AMINO AC/EL... IV SCH (18:08)
[2023-10-09] MEDS: SODIUM CHLORIDE 0.9% INJ 10 ML SYR IV SCH (18:49)
[2023-10-09 20:39] VITALS: BP 140/74; TEMP 97; O2SAT 97
[2023-10-09] MEDS: ENOXAPARIN 100MG/1ML SYRINGE (J1650 PER 10MG) SC SCH (21:01)
[2023-10-09] MEDS: NS IV SCH (21:01)
[2023-10-09] MEDS: ACYCLOVIR SODIUM IV SCH (21:01)
[2023-10-10 04:25] VITALS: BP 141/88; TEMP 97.7; O2SAT 96
[2023-10-10] MEDS: KETOROLAC 30 MG/ML 1ML VIAL IV SCH (06:07)
[2023-10-10 06:18] LABS: EOS # 0.3 10^3/uL (0.0-0.5); EOS % 8.3 % (0.0-3.0); HEMATOCRIT 23.7 % (36.0-47.0); LYMPH # 0.6 10^3/uL (1.5-5.0); LYMPH % 18.9 % (24.0-44.0); MEAN CORPUSCULAR HEMOGLOBIN 32.9 pg (27.0-33.0); MEAN CORPUSCULAR HGB CONC 33.8 g/dl (32.0-36.5); MEAN CORPUSCULAR VOLUME 97.5 fl (80.0-96.0); MONO # 0.4 10^3/uL (0.0-0.8); MONO % 14.2 % (2.0-8.0); NEUTROPHILS # 1.7 10^3/uL (1.5-8.5); NEUTROPHILS % 57.6 % (36.0-66.0); PLATELET COUNT, AUTOMATED 101 10^3/uL (150-450); RED BLOOD COUNT 2.43 10^6/uL (4.00-5.40)
[2023-10-10 06:48] LABS: CALCIUM LEVEL 8.3 MG/DL (8.5-10.1); CREATININE FOR GFR 1.65 MG/DL (0.55-1.30); MAGNESIUM LEVEL 1.9 MG/DL (1.8-2.4); POTASSIUM SERUM 3.7 MMOL/L (3.5-5.1)
[2023-10-10 12:24] VITALS: BP 141/90
[2023-10-10] MEDS: FUROSEMIDE 100MG/10ML VIAL IV ONE (12:24)
[2023-10-10] MEDS: SODIUM CHLORIDE 0.9% INJ 10 ML SYR IV PRN (12:26)
[2023-10-10 14:00] VITALS: BP 141/92; TEMP 97.9; O2SAT 97
[2023-10-10] MEDS: diphenhydrAMINE 50MG/ML VIAL IV ONE (15:29)
[2023-10-10] MEDS: CEFEPIME HCL 2 GM in D5W MINI-BAG PLUS 50 ML IV SCH (15:30)
[2023-10-10] MEDS: AMINO AC/ELECTROLYTE/DEX/CALC 1,000 ML IV SCH (15:37)
[2023-10-10 17:02] LABS: C REACTIVE PROTEIN QUANTITATIV 1.1 MG/DL (<1.0)
[2023-10-10] MEDS: INSULIN LISPRO (NovoLOG) PER UNIT SC SCH (18:00)
[2023-10-10] MEDS: AMINO AC/ELECTROLYTE/DEX/CALC 2,000 ML IV SCH (18:20)
[2023-10-10] MEDS: FAT EMULSION IV 250 ML IV ONE (18:20)
[2023-10-10] MEDS: ACYCLOVIR SODIUM IV SCH (18:27)
[2023-10-10] MEDS: NS IV SCH (18:27)
[2023-10-10 19:49] VITALS: BP 164/84; TEMP 97.5; O2SAT 97
[2023-10-10] MEDS: QUEtiapine FUMARATE 12.5 MG HALF-TAB PO SCH (20:06)
[2023-10-10] MEDS: traZODone 50 MG TAB PO PRN (22:04)
[2023-10-11] MEDS: QUEtiapine FUMARATE 12.5 MG HALF-TAB PO ONE (01:57)
[2023-10-11 06:30] VITALS: BP 152/82; TEMP 97.7; O2SAT 100
[2023-10-11 07:02] LABS: EOS # 0.3 10^3/uL (0.0-0.5); EOS % 11.6 % (0.0-3.0); HEMATOCRIT 21.9 % (36.0-47.0); HEMOGLOBIN 7.3 g/dl (12.0-15.5); LYMPH # 0.6 10^3/uL (1.5-5.0); LYMPH % 19.9 % (24.0-44.0); MEAN CORPUSCULAR HEMOGLOBIN 33.2 pg (27.0-33.0); MEAN CORPUSCULAR HGB CONC 33.3 g/dl (32.0-36.5); MEAN CORPUSCULAR VOLUME 99.5 fl (80.0-96.0); MONO # 0.4 10^3/uL (0.0-0.8); MONO % 12.7 % (2.0-8.0); NEUTROPHILS # 1.5 10^3/uL (1.5-8.5); NEUTROPHILS % 55.1 % (36.0-66.0); WHITE BLOOD COUNT 2.8 10^3/uL (4.0-10.0)
[2023-10-11 07:05] LABS: PLATELET COUNT, AUTOMATED 87 10^3/uL (150-450)
[2023-10-11 07:32] LABS: BILIRUBIN,TOTAL 0.6 MG/DL (0.3-1.2); CALCIUM LEVEL 8.1 MG/DL (8.5-10.1); CREATININE FOR GFR 1.51 MG/DL (0.55-1.30); GLOMERULAR FILTRATION RATE 37.7 (>51); MAGNESIUM LEVEL 1.8 MG/DL (1.8-2.4); POTASSIUM SERUM 3.6 MMOL/L (3.5-5.1); TOTAL PROTEIN 4.2 G/DL (5.7-8.2)
[2023-10-11] MEDS ORDERED: KCL 20MEQ IN 100ML SWI (KRUN) 20 MEQ in IV 1 EA IV SCH (08:15)
[2023-10-11] MEDS: QUEtiapine FUMARATE 25 MG TAB PO SCH (08:47)
[2023-10-11] MEDS: MAG SULF 1GM/100ML (MAG RUN) 1 GM in IV 1 EA IV ONE (08:48)
[2023-10-11] MEDS ORDERED: KCL 10MEQ/100ML SWI (KRUN) IV SCH (09:00)
[2023-10-11] MEDS: KCL 10MEQ/100ML SWI (KRUN) IV SCH (10:22)
[2023-10-11] MEDS: diphenhydrAMINE 50MG/ML VIAL IV SCH (12:25)
[2023-10-11] MEDS: AMINO AC/ELECTROLYTE/DEX/CALC 1,000 ML IV SCH (15:09)
[2023-10-11] MEDS: INSULIN LISPRO (NovoLOG) PER UNIT SC SCH (17:20)
[2023-10-11] MEDS: FAT EMULSION IV 250 ML IV ONE (17:42)
[2023-10-11] MEDS: MULTIVITAMIN -ADULT INJECTION 10 ML, ZINC/COPPER/MANGANESE/SELENIUM 1 ML in AMINO AC/EL... IV SCH (17:42)
[2023-10-11 21:15] VITALS: BP 168/86; TEMP 98.1; O2SAT 97
[2023-10-12 06:17] VITALS: BP 152/74; TEMP 97.9; O2SAT 95
[2023-10-12 06:31] LABS: EOS # 0.3 10^3/uL (0.0-0.5); EOS % 9.8 % (0.0-3.0); HEMATOCRIT 22.3 % (36.0-47.0); HEMOGLOBIN 7.4 g/dl (12.0-15.5); LYMPH # 0.7 10^3/uL (1.5-5.0); LYMPH % 21.2 % (24.0-44.0); MEAN CORPUSCULAR HEMOGLOBIN 32.9 pg (27.0-33.0); MEAN CORPUSCULAR HGB CONC 33.2 g/dl (32.0-36.5); MEAN CORPUSCULAR VOLUME 99.1 fl (80.0-96.0); MONO # 0.4 10^3/uL (0.0-0.8); MONO % 12.7 % (2.0-8.0); NEUTROPHILS # 1.7 10^3/uL (1.5-8.5); NEUTROPHILS % 55.3 % (36.0-66.0); RED BLOOD COUNT 2.25 10^6/uL (4.00-5.40); WHITE BLOOD COUNT 3.1 10^3/uL (4.0-10.0)
[2023-10-12 06:32] LABS: PLATELET COUNT, AUTOMATED 89 10^3/uL (150-450)
[2023-10-12 06:57] LABS: ALBUMIN 2.1 G/DL (3.2-5.2); BILIRUBIN,TOTAL 0.7 MG/DL (0.3-1.2); CALCIUM LEVEL 8.3 MG/DL (8.5-10.1); CREATININE FOR GFR 1.29 MG/DL (0.55-1.30); GLOMERULAR FILTRATION RATE 45.2 (>51); MAGNESIUM LEVEL 1.9 MG/DL (1.8-2.4); POTASSIUM SERUM 3.6 MMOL/L (3.5-5.1); TOTAL PROTEIN 4.4 G/DL (5.7-8.2)
[2023-10-12] MEDS: FUROSEMIDE 40MG/4ML VIAL IV ONE (12:31)
[2023-10-12 14:00] VITALS: BP 150/78; TEMP 98.2; O2SAT 96
[2023-10-12] MEDS: AMINO AC/ELECTROLYTE/DEX/CALC 1,000 ML IV SCH (14:32)
[2023-10-12] MEDS: INSULIN LISPRO (NovoLOG) PER UNIT SC SCH (17:16)
[2023-10-12] MEDS: diphenhydrAMINE 50MG/ML VIAL IV PRN (17:29)
[2023-10-12] MEDS: FAT EMULSION IV 250 ML IV ONE (18:43)
[2023-10-12] MEDS: AMINO AC/ELECTROLYTE/DEX/CALC 2,000 ML IV SCH (18:44)
[2023-10-12] MEDS: QUEtiapine FUMARATE 25 MG TAB PO PRN (20:19)
[2023-10-12 20:20] VITALS: BP 144/81; TEMP 97.7; O2SAT 97
[2023-10-13 05:13] VITALS: BP 144/82; TEMP 98.1; O2SAT 96
[2023-10-13 05:48] LABS: ALBUMIN 2.2 G/DL (3.2-5.2); ALKALINE PHOSPHATASE 193 U/L (46-116); ALT/SGPT 169 U/L (7.0-40); AST/SGOT 152 U/L (<34); BILIRUBIN,TOTAL 0.7 MG/DL (0.3-1.2); BLOOD UREA NITROGEN 42 MG/DL (9-23); CALCIUM LEVEL 8.4 MG/DL (8.5-10.1); CARBON DIOXIDE LEVEL 31 MMOL/L (20-31); CHLORIDE LEVEL 103 MMOL/L (98-107); CREATININE FOR GFR 1.17 MG/DL (0.55-1.30); GLOMERULAR FILTRATION RATE 50.6 (>51); GLUCOSE, FASTING 128 MG/DL (60-100); PHOSPHORUS LEVEL 3.3 MG/DL (2.5-4.9); POTASSIUM SERUM 3.4 MMOL/L (3.5-5.1); SODIUM LEVEL 138 MMOL/L (136-145); TOTAL PROTEIN 4.6 G/DL (5.7-8.2)
[2023-10-13] MEDS: KCL 10MEQ/100ML SWI (KRUN) 10 MEQ in IV 1 EA IV ONE (12:30)
[2023-10-13 14:00] VITALS: BP 140/83; TEMP 97.5; O2SAT 97
[2023-10-13] MEDS: AMINO AC/ELECTROLYTE/DEX/CALC 1,000 ML IV SCH (15:47)
[2023-10-13 16:33] LABS: HEPATITIS B SURFACE ANTIBODY NEGATIVE (POSITIVE)
[2023-10-13 16:45] LABS: HEPATITIS B SURFACE ANTIGEN NEGATIVE (NEGATIVE)
[2023-10-13 16:58] LABS: HIV 1&2 SCREEN NEGATIVE (NEGATIVE)
[2023-10-13 17:06] LABS: HEPATITIS C VIRUS ABY INDEX < 0.02 INDEX (<0.8)
[2023-10-13] MEDS: INSULIN LISPRO (NovoLOG) PER UNIT SC SCH (18:00)
[2023-10-13] MEDS: MULTIVITAMIN -ADULT INJECTION 10 ML, ZINC/COPPER/MANGANESE/SELENIUM 1 ML, POTASSIUM CHL... IV SCH (18:20)
[2023-10-13] MEDS: FAT EMULSION IV 250 ML IV ONE (18:20)
[2023-10-13 21:25] VITALS: BP 138/80; TEMP 98.2; O2SAT 99
[2023-10-14] MEDS: MORPHINE 2 MG/ML 1ML VIAL IV PRN (01:05)
[2023-10-14 05:33] VITALS: BP 136/78; TEMP 98.2; O2SAT 97
[2023-10-14 06:18] LABS: EOS # 0.2 10^3/uL (0.0-0.5); EOS % 5.4 % (0.0-3.0); HEMATOCRIT 23.5 % (36.0-47.0); HEMOGLOBIN 7.8 g/dl (12.0-15.5); LYMPH # 0.8 10^3/uL (1.5-5.0); LYMPH % 23.6 % (24.0-44.0); MEAN CORPUSCULAR HEMOGLOBIN 33.8 pg (27.0-33.0); MEAN CORPUSCULAR HGB CONC 33.2 g/dl (32.0-36.5); MEAN CORPUSCULAR VOLUME 101.7 fl (80.0-96.0); MONO # 0.5 10^3/uL (0.0-0.8); MONO % 14.6 % (2.0-8.0); NEUTROPHILS # 1.9 10^3/uL (1.5-8.5); NEUTROPHILS % 55.8 % (36.0-66.0); RED BLOOD COUNT 2.31 10^6/uL (4.00-5.40); WHITE BLOOD COUNT 3.4 10^3/uL (4.0-10.0)
[2023-10-14 06:19] LABS: PLATELET COUNT, AUTOMATED 88 10^3/uL (150-450)
[2023-10-14 06:44] LABS: ALBUMIN 2.2 G/DL (3.2-5.2); ALKALINE PHOSPHATASE 198 U/L (46-116); ALT/SGPT 146 U/L (7.0-40); AST/SGOT 135 U/L (<34); BILIRUBIN,TOTAL 0.6 MG/DL (0.3-1.2); BLOOD UREA NITROGEN 40 MG/DL (9-23); CALCIUM LEVEL 8.5 MG/DL (8.5-10.1); CARBON DIOXIDE LEVEL 32 MMOL/L (20-31); CHLORIDE LEVEL 104 MMOL/L (98-107); CREATININE FOR GFR 0.97 MG/DL (0.55-1.30); GLOMERULAR FILTRATION RATE > 60.0 (>51); GLUCOSE, FASTING 94 MG/DL (60-100); MAGNESIUM LEVEL 1.7 MG/DL (1.8-2.4); PHOSPHORUS LEVEL 3.3 MG/DL (2.5-4.9); POTASSIUM SERUM 3.8 MMOL/L (3.5-5.1); SODIUM LEVEL 140 MMOL/L (136-145); TOTAL PROTEIN 4.6 G/DL (5.7-8.2)
[2023-10-14 10:52] LABS: RHEUMATOID FACTOR QUANT 4.9 IU/ML (<14)
[2023-10-14 14:00] VITALS: BP 135/80; TEMP 98.6; O2SAT 96
[2023-10-14] MEDS ORDERED: AMINO AC/ELECTROLYTE/DEX/CALC 1,000 ML IV SCH (15:24)
[2023-10-14] MEDS: FAT EMULSION IV 250 ML IV ONE (18:05)
[2023-10-14] MEDS: MAGNESIUM SULFATE IV SCH (18:05)
[2023-10-14] MEDS: POTASSIUM CHLORIDE IV SCH (18:05)
[2023-10-14] MEDS: [UNRECOGNIZED DRUG - OTHER] IV SCH (18:05)
[2023-10-14] MEDS: INSULIN LISPRO (NovoLOG) PER UNIT SC SCH (18:15)
[2023-10-14 22:00] VITALS: BP 138/78; TEMP 97; O2SAT 97
[2023-10-15] VITALS (9 sets, daily range): BP systolic 137–163; BP diastolic 79–94; TEMP 97.5–98.1; O2SAT 97–99
[2023-10-15] MEDS: ACETAMINOPHEN 325MG/10.15ML UDC PO PRN (03:45)
[2023-10-15] MEDS: HYDROcodone/APAP LIQUID 7.5-325MG 15ML UDC (LORTAB ELIXIR) PO PRN (05:50)
[2023-10-15 08:39] LABS: BASO % 0.4 % (0.0-1.0); EOS # 0.1 10^3/uL (0.0-0.5); EOS % 4.9 % (0.0-3.0); HEMATOCRIT 22.1 % (36.0-47.0); LYMPH # 0.6 10^3/uL (1.5-5.0); LYMPH % 23.5 % (24.0-44.0); MEAN CORPUSCULAR HEMOGLOBIN 34.6 pg (27.0-33.0); MEAN CORPUSCULAR HGB CONC 28.5 g/dl (32.0-36.5); MONO # 0.3 10^3/uL (0.0-0.8); NEUTROPHILS # 1.4 10^3/uL (1.5-8.5); NEUTROPHILS % 57.8 % (36.0-66.0); RED BLOOD COUNT 1.82 10^6/uL (4.00-5.40); WHITE BLOOD COUNT 2.5 10^3/uL (4.0-10.0)
[2023-10-15 08:42] LABS: MEAN CORPUSCULAR VOLUME 121.4 fl (80.0-96.0); PLATELET COUNT, AUTOMATED 69 10^3/uL (150-450)
[2023-10-15 08:43] LABS: HEMOGLOBIN 6.3 g/dl (12.0-15.5)
[2023-10-15] MEDS ORDERED: MIRALAX *UNIT DOSE* 17GM PACKET PO PRN (09:15)
[2023-10-15] MEDS ORDERED: DOCUSATE SOD LIQ 100MG/10ML UDC GT PRN (09:15)
[2023-10-15] MEDS: BISACODYL 10MG SUPP PR SCH (10:22)
[2023-10-15 11:47] LABS: ALBUMIN 2.4 G/DL (3.2-5.2); ALKALINE PHOSPHATASE 213 U/L (46-116); ALT/SGPT 148 U/L (7.0-40); AST/SGOT 162 U/L (<34); BILIRUBIN,TOTAL 0.7 MG/DL (0.3-1.2); BLOOD UREA NITROGEN 33 MG/DL (9-23); CALCIUM LEVEL 8.6 MG/DL (8.5-10.1); CARBON DIOXIDE LEVEL 29 MMOL/L (20-31); CHLORIDE LEVEL 102 MMOL/L (98-107); CREATININE FOR GFR 0.86 MG/DL (0.55-1.30); GLOMERULAR FILTRATION RATE > 60.0 (>51); GLUCOSE, FASTING 120 MG/DL (60-100); MAGNESIUM LEVEL 1.8 MG/DL (1.8-2.4); PHOSPHORUS LEVEL 3.7 MG/DL (2.5-4.9); SODIUM LEVEL 136 MMOL/L (136-145); TOTAL PROTEIN 5.1 G/DL (5.7-8.2)
[2023-10-15 17:45] LABS: HEMATOCRIT 28.2 % (36.0-47.0)
[2023-10-15 17:49] LABS: HEMOGLOBIN 9.6 g/dl (12.0-15.5)
[2023-10-15] MEDS: MAGNESIUM SULFATE IV SCH (18:20)
[2023-10-15] MEDS: INSULIN LISPRO (NovoLOG) PER UNIT SC SCH (18:20)
[2023-10-15] MEDS: POTASSIUM CHLORIDE IV SCH (18:20)
[2023-10-15] MEDS: [UNRECOGNIZED DRUG - OTHER] IV SCH (18:20)
[2023-10-15] MEDS: FAT EMULSION IV 250 ML IV ONE (18:20)
[2023-10-16 06:00] VITALS: BP 162/92; TEMP 97.7; O2SAT 95
[2023-10-16 06:17] LABS: BASO % 0.3 % (0.0-1.0); EOS # 0.1 10^3/uL (0.0-0.5); EOS % 4.4 % (0.0-3.0); HEMATOCRIT 27.8 % (36.0-47.0); LYMPH # 0.5 10^3/uL (1.5-5.0); LYMPH % 16.4 % (24.0-44.0); MEAN CORPUSCULAR HEMOGLOBIN 39.5 pg (27.0-33.0); MEAN CORPUSCULAR HGB CONC 32.4 g/dl (32.0-36.5); MONO # 0.5 10^3/uL (0.0-0.8); MONO % 14.8 % (2.0-8.0); NEUTROPHILS % 63.5 % (36.0-66.0); RED BLOOD COUNT 2.28 10^6/uL (4.00-5.40); WHITE BLOOD COUNT 3.2 10^3/uL (4.0-10.0)
[2023-10-16 06:22] LABS: MEAN CORPUSCULAR VOLUME 121.9 fl (80.0-96.0); PLATELET COUNT, AUTOMATED 74 10^3/uL (150-450)
[2023-10-16 06:43] LABS: PLATELET ESTIMATE DECREASED (NORMAL)
[2023-10-16 06:44] LABS: ANISOCYTOSIS 4+
[2023-10-16 06:47] LABS: TEAR DROP CELLS 1+
[2023-10-16 08:12] LABS: ALBUMIN 2.2 G/DL (3.2-5.2); ALKALINE PHOSPHATASE 193 U/L (46-116); ALT/SGPT 139 U/L (7.0-40); AST/SGOT 138 U/L (<34); BILIRUBIN,TOTAL 0.7 MG/DL (0.3-1.2); BLOOD UREA NITROGEN 33 MG/DL (9-23); CALCIUM LEVEL 7.8 MG/DL (8.5-10.1); CARBON DIOXIDE LEVEL 28 MMOL/L (20-31); CHLORIDE LEVEL 105 MMOL/L (98-107); CREATININE FOR GFR 0.79 MG/DL (0.55-1.30); GLOMERULAR FILTRATION RATE > 60.0 (>51); GLUCOSE, FASTING 80 MG/DL (60-100); MAGNESIUM LEVEL 1.9 MG/DL (1.8-2.4); POTASSIUM SERUM 3.9 MMOL/L (3.5-5.1); SODIUM LEVEL 140 MMOL/L (136-145); TOTAL PROTEIN 4.5 G/DL (5.7-8.2)
[2023-10-16] MEDS ORDERED: LORazepam 0.5 MG TAB PO ONE (11:00)
[2023-10-16 14:00] VITALS: BP 110/78; TEMP 98.6; O2SAT 97
[2023-10-16 15:36] VITALS: BP 118/80
[2023-10-16 15:42] VITALS: BP 110/70
[2023-10-16] MEDS: FAT EMULSION IV 250 ML IV ONE (17:55)
[2023-10-16] MEDS: MULTIVITAMIN -ADULT INJECTION 10 ML, ZINC/COPPER/MANGANESE/SELENIUM 1 ML, POTASSIUM CHL... IV SCH (17:55)
[2023-10-16] MEDS: INSULIN LISPRO (NovoLOG) PER UNIT SC SCH (18:00)
[2023-10-16 19:50] VITALS: BP 155/92; TEMP 98.1; O2SAT 97
[2023-10-16 21:00] VITALS: BP 155/92; TEMP 98; O2SAT 97
[2023-10-17 05:50] VITALS: BP 151/89; TEMP 98.1; O2SAT 96
[2023-10-17 05:52] LABS: EOS # 0.1 10^3/uL (0.0-0.5); EOS % 2.4 % (0.0-3.0); HEMATOCRIT 25.9 % (36.0-47.0); HEMOGLOBIN 8.6 g/dl (12.0-15.5); LYMPH # 0.7 10^3/uL (1.5-5.0); LYMPH % 17.1 % (24.0-44.0); MEAN CORPUSCULAR HGB CONC 33.2 g/dl (32.0-36.5); MEAN CORPUSCULAR VOLUME 99.2 fl (80.0-96.0); MONO # 0.5 10^3/uL (0.0-0.8); MONO % 11.5 % (2.0-8.0); NEUTROPHILS # 2.8 10^3/uL (1.5-8.5); NEUTROPHILS % 68.5 % (36.0-66.0); RED BLOOD COUNT 2.61 10^6/uL (4.00-5.40); WHITE BLOOD COUNT 4.1 10^3/uL (4.0-10.0)
[2023-10-17 06:04] LABS: PLATELET COUNT, AUTOMATED 63 10^3/uL (150-450)
[2023-10-17 06:11] LABS: ALBUMIN 2.2 G/DL (3.2-5.2); ALKALINE PHOSPHATASE 193 U/L (46-116); ALT/SGPT 117 U/L (7.0-40); AST/SGOT 97 U/L (<34); BILIRUBIN,TOTAL 0.6 MG/DL (0.3-1.2); BLOOD UREA NITROGEN 31 MG/DL (9-23); CALCIUM LEVEL 8.4 MG/DL (8.5-10.1); CARBON DIOXIDE LEVEL 28 MMOL/L (20-31); CHLORIDE LEVEL 104 MMOL/L (98-107); CREATININE FOR GFR 0.75 MG/DL (0.55-1.30); GLOMERULAR FILTRATION RATE > 60.0 (>51); GLUCOSE, FASTING 122 MG/DL (60-100); MAGNESIUM LEVEL 1.8 MG/DL (1.8-2.4); PHOSPHORUS LEVEL 3.8 MG/DL (2.5-4.9); POTASSIUM SERUM 3.7 MMOL/L (3.5-5.1); SODIUM LEVEL 138 MMOL/L (136-145); TOTAL PROTEIN 4.6 G/DL (5.7-8.2)
[2023-10-17] MEDS: LORazepam 0.5 MG TAB PO ONE (06:58)
[2023-10-17 13:00] VITALS: BP 166/94; TEMP 98.1; O2SAT 98
[2023-10-17 13:06] LABS: APPEARANCE, CSF CLEAR (CLEAR); COLOR, CSF COLORLESS (COLORLESS); CSF TUBE# CELL CNT TUBE 4
[2023-10-17 13:08] LABS: APPEARANCE, CSF CLEAR (CLEAR); COLOR, CSF COLORLESS (COLORLESS); CSF TUBE# CELL CNT TUBE 1
[2023-10-17 13:14] LABS: CSF TUBE# GLU TUBE 2; CSF TUBE# TP TUBE 2
[2023-10-17 14:00] VITALS: BP 164/93; TEMP 97.7; O2SAT 96
[2023-10-17] MEDS: AMINO AC/ELECTROLYTE/DEX/CALC 1,000 ML IV SCH (15:52)
[2023-10-17 16:09] LABS: ANTI DS-DNA AB Negative (Negative); ANTINUCLEAR ANTIBODIES DIRECT Negative (Negative); COMPLEMENT TOTAL (CH50) > 60 U/mL (>41)
[2023-10-17] MEDS: INSULIN LISPRO (NovoLOG) PER UNIT SC SCH (18:30)
[2023-10-17] MEDS: FAT EMULSION IV 250 ML IV ONE (18:31)
[2023-10-17] MEDS: AMINO AC/ELECTROLYTE/DEX/CALC 2,000 ML IV SCH (18:31)
[2023-10-17 20:00] VITALS: BP 145/73; TEMP 97.7; O2SAT 96
[2023-10-18 05:10] VITALS: BP 137/76; TEMP 97.2; O2SAT 97
[2023-10-18 05:30] LABS: HEMATOCRIT 25.8 % (36.0-47.0); HEMOGLOBIN 8.5 g/dl (12.0-15.5); MEAN CORPUSCULAR HEMOGLOBIN 33.2 pg (27.0-33.0); MEAN CORPUSCULAR HGB CONC 32.9 g/dl (32.0-36.5); MEAN CORPUSCULAR VOLUME 100.8 fl (80.0-96.0); PLATELET COUNT, AUTOMATED 63 10^3/uL (150-450); RED BLOOD COUNT 2.56 10^6/uL (4.00-5.40); WHITE BLOOD COUNT 3.8 10^3/uL (4.0-10.0)
[2023-10-18 06:01] LABS: ALKALINE PHOSPHATASE 178 U/L (46-116); ALT/SGPT 97 U/L (7.0-40); AST/SGOT 89 U/L (<34); BILIRUBIN,TOTAL 0.6 MG/DL (0.3-1.2); BLOOD UREA NITROGEN 31 MG/DL (9-23); CALCIUM LEVEL 8.1 MG/DL (8.5-10.1); CARBON DIOXIDE LEVEL 29 MMOL/L (20-31); CHLORIDE LEVEL 106 MMOL/L (98-107); CREATININE FOR GFR 0.74 MG/DL (0.55-1.30); GLOMERULAR FILTRATION RATE > 60.0 (>51); GLUCOSE, FASTING 97 MG/DL (60-100); POTASSIUM SERUM 3.6 MMOL/L (3.5-5.1); SODIUM LEVEL 141 MMOL/L (136-145); TOTAL PROTEIN 4.6 G/DL (5.7-8.2)
[2023-10-18] MEDS ORDERED: LIDOCAINE 1% MDV 20ML VIAL As Ordered ONE (11:29)
[2023-10-18] MEDS: AMINO AC/ELECTROLYTE/DEX/CALC 1,000 ML IV SCH (15:00)
[2023-10-18 15:37] VITALS: BP 159/96; TEMP 98.2; O2SAT 96
[2023-10-18] MEDS: INSULIN LISPRO (NovoLOG) PER UNIT SC SCH (17:48)
[2023-10-18] MEDS: MULTIVITAMIN -ADULT INJECTION 10 ML, ZINC/COPPER/MANGANESE/SELENIUM 1 ML in AMINO AC/EL... IV SCH (17:48)
[2023-10-18] MEDS: FAT EMULSION IV 250 ML IV ONE (17:48)
[2023-10-18 21:58] VITALS: BP 159/96; TEMP 97.9; O2SAT 97
[2023-10-19] VITALS (10 sets, daily range): BP systolic 128–157; BP diastolic 70–95; TEMP 97.7–98.2; O2SAT 90–97
[2023-10-19] MEDS ORDERED: fentaNYL 100 MCG/2 ML INJECTION As Ordered ONE (09:01)
[2023-10-19] MEDS ORDERED: MIDAZOLAM INJ 2MG/2ML VIAL As Ordered ONE (09:01)
[2023-10-19] MEDS ORDERED: ONDANSETRON 4MG 2ML VIAL As Ordered ONE (09:01)
[2023-10-19] MEDS ORDERED: dexmedeTOMIDine (4MCG/ML)200MCG/50ML BTL (PRECEDEX) As Ordered ONE (09:01)
[2023-10-19] MEDS ORDERED: LIDOCAINE 2% 100MG/5ML SDV (FOR ANES.) As Ordered ONE (09:01)
[2023-10-19] MEDS ORDERED: propofoL 200 MG/20 ML VIAL As Ordered ONE (09:01)
[2023-10-19] MEDS: LIDOCAINE 1% SDV 30ML VIAL As Ordered ONE (09:23)
[2023-10-19] MEDS ORDERED: ONDANSETRON 4MG 2ML VIAL IV PRN ×2 (09:35→10:30)
[2023-10-19] MEDS ORDERED: fentaNYL 100 MCG/2 ML INJECTION IV PRN (10:30)
[2023-10-19] MEDS: HYDROMORPHONE HCL 0.5 MG/ 0.5 ML SYRINGE IV PRN (10:37)
[2023-10-19] MEDS: LR 1,000 ML IV SCH (12:21)
[2023-10-19] MEDS: AMINO AC/ELECTROLYTE/DEX/CALC 1,000 ML IV SCH (15:41)
[2023-10-19 17:40] LABS: HEMATOCRIT 27.4 % (36.0-47.0); MEAN CORPUSCULAR HGB CONC 32.8 g/dl (32.0-36.5); MEAN CORPUSCULAR VOLUME 100.4 fl (80.0-96.0); RED BLOOD COUNT 2.73 10^6/uL (4.00-5.40); WHITE BLOOD COUNT 7.2 10^3/uL (4.0-10.0)
[2023-10-19 17:46] LABS: PLATELET COUNT, AUTOMATED 70 10^3/uL (150-450)
[2023-10-19] MEDS: INSULIN LISPRO (NovoLOG) PER UNIT SC SCH (18:22)
[2023-10-19] MEDS: AMINO AC/ELECTROLYTE/DEX/CALC 2,000 ML IV SCH (18:23)
[2023-10-19] MEDS: FAT EMULSION IV 250 ML IV ONE (18:24)
[2023-10-20] VITALS (7 sets, daily range): BP systolic 135–163; BP diastolic 81–86; TEMP 97.9–100.5; O2SAT 95–98
[2023-10-20 06:18] LABS: HEMATOCRIT 29.1 % (36.0-47.0); HEMOGLOBIN 8.4 g/dl (12.0-15.5); MEAN CORPUSCULAR HEMOGLOBIN 35.4 pg (27.0-33.0); MEAN CORPUSCULAR HGB CONC 28.9 g/dl (32.0-36.5); RED BLOOD COUNT 2.37 10^6/uL (4.00-5.40); WHITE BLOOD COUNT 7.2 10^3/uL (4.0-10.0)
[2023-10-20 06:34] LABS: MEAN CORPUSCULAR VOLUME 122.8 fl (80.0-96.0); PLATELET COUNT, AUTOMATED 60 10^3/uL (150-450)
[2023-10-20 08:04] LABS: ALBUMIN 1.9 G/DL (3.2-5.2); ALKALINE PHOSPHATASE 168 U/L (46-116); ALT/SGPT 67 U/L (7.0-40); AST/SGOT 61 U/L (<34); BILIRUBIN,TOTAL 0.8 MG/DL (0.3-1.2); BLOOD UREA NITROGEN 27 MG/DL (9-23); CARBON DIOXIDE LEVEL 27 MMOL/L (20-31); CHLORIDE LEVEL 103 MMOL/L (98-107); CREATININE FOR GFR 0.66 MG/DL (0.55-1.30); GLOMERULAR FILTRATION RATE > 60.0 (>51); GLUCOSE, FASTING 130 MG/DL (60-100); MAGNESIUM LEVEL 1.5 MG/DL (1.8-2.4); PHOSPHORUS LEVEL 3.4 MG/DL (2.5-4.9); POTASSIUM SERUM 3.2 MMOL/L (3.5-5.1); SODIUM LEVEL 138 MMOL/L (136-145); TOTAL PROTEIN 4.7 G/DL (5.7-8.2)
[2023-10-20] MEDS: MAGNESIUM OXIDE 400MG TAB (MAG-OX) PO SCH (09:56)
[2023-10-20] MEDS: POTASSIUM CHLORIDE 10% LIQ 20MEQ/15ML UDC PO SCH (09:57)
[2023-10-20] MEDS ORDERED: PROHANCE 279.3MG/ML 15ML VIAL As Ordered ONE (10:57)
[2023-10-20] MEDS ORDERED: PROHANCE 279.3MG/ML 5ML VIAL As Ordered ONE (10:57)
[2023-10-20] MEDS: MAG SULF 1GM/100ML (MAG RUN) 1 GM in IV 1 EA IV SCH (12:19)
[2023-10-20] MEDS: AMINO AC/ELECTROLYTE/DEX/CALC 1,000 ML IV SCH (15:00)
[2023-10-21] MEDS: KETOROLAC 30 MG/ML 1ML VIAL IV ONE (00:29)
[2023-10-21 06:00] VITALS: BP 146/85; TEMP 97.2; O2SAT 97
[2023-10-21 06:16] LABS: HEMATOCRIT 25.6 % (36.0-47.0); HEMOGLOBIN 8.2 g/dl (12.0-15.5); MEAN CORPUSCULAR HEMOGLOBIN 32.7 pg (27.0-33.0); RED BLOOD COUNT 2.51 10^6/uL (4.00-5.40); WHITE BLOOD COUNT 8.8 10^3/uL (4.0-10.0)
[2023-10-21 06:17] LABS: PLATELET COUNT, AUTOMATED 65 10^3/uL (150-450)
[2023-10-21 06:50] LABS: ALKALINE PHOSPHATASE 182 U/L (46-116); ALT/SGPT 60 U/L (7.0-40); AST/SGOT 52 U/L (<34); BILIRUBIN,TOTAL 1.4 MG/DL (0.3-1.2); BLOOD UREA NITROGEN 28 MG/DL (9-23); CALCIUM LEVEL 7.6 MG/DL (8.5-10.1); CARBON DIOXIDE LEVEL 28 MMOL/L (20-31); CHLORIDE LEVEL 102 MMOL/L (98-107); CREATININE FOR GFR 0.82 MG/DL (0.55-1.30); GLOMERULAR FILTRATION RATE > 60.0 (>51); GLUCOSE, FASTING 93 MG/DL (60-100); MAGNESIUM LEVEL 1.9 MG/DL (1.8-2.4); PHOSPHORUS LEVEL 3.3 MG/DL (2.5-4.9); SODIUM LEVEL 135 MMOL/L (136-145); TOTAL PROTEIN 4.6 G/DL (5.7-8.2)
[2023-10-21] MEDS ORDERED: EMLA CREAM 5GM TUBE (LIDOCAINE/PRILOCAINE) TOP SCH (09:00)
[2023-10-21 14:00] VITALS: BP 145/84; TEMP 98.1; O2SAT 96
[2023-10-21 14:13] VITALS: BP 145/84; TEMP 98.1; O2SAT 96
[2023-10-21 16:56] VITALS: TEMP 98.5
[2023-10-21] MEDS: NS 1,000 ML IV SCH (18:39)
[2023-10-21 18:40] VITALS: TEMP 99.4
[2023-10-21 19:17] LABS: MAGNESIUM LEVEL 1.7 MG/DL (1.8-2.4); PHOSPHORUS LEVEL 2.9 MG/DL (2.5-4.9); POTASSIUM SERUM 4.2 MMOL/L (3.5-5.1)
[2023-10-21 20:00] VITALS: BP 145/83; TEMP 97.9; O2SAT 95
[2023-10-22 05:31] LABS: HEMATOCRIT 25.3 % (36.0-47.0); HEMOGLOBIN 8.3 g/dl (12.0-15.5); MEAN CORPUSCULAR HEMOGLOBIN 33.6 pg (27.0-33.0); MEAN CORPUSCULAR HGB CONC 32.8 g/dl (32.0-36.5); MEAN CORPUSCULAR VOLUME 102.4 fl (80.0-96.0); RED BLOOD COUNT 2.47 10^6/uL (4.00-5.40); WHITE BLOOD COUNT 7.4 10^3/uL (4.0-10.0)
[2023-10-22 05:36] LABS: PLATELET COUNT, AUTOMATED 82 10^3/uL (150-450)
[2023-10-22 06:00] VITALS: BP 142/83; TEMP 97.9; O2SAT 93
[2023-10-22 06:02] LABS: ALKALINE PHOSPHATASE 216 U/L (46-116); ALT/SGPT 61 U/L (7.0-40); AST/SGOT 60 U/L (<34); BILIRUBIN,TOTAL 1.5 MG/DL (0.3-1.2); BLOOD UREA NITROGEN 19 MG/DL (9-23); CALCIUM LEVEL 7.4 MG/DL (8.5-10.1); CARBON DIOXIDE LEVEL 27 MMOL/L (20-31); CHLORIDE LEVEL 102 MMOL/L (98-107); CREATININE FOR GFR 0.69 MG/DL (0.55-1.30); GLOMERULAR FILTRATION RATE > 60.0 (>51); GLUCOSE, FASTING 107 MG/DL (60-100); MAGNESIUM LEVEL 1.7 MG/DL (1.8-2.4); POTASSIUM SERUM 3.9 MMOL/L (3.5-5.1); SODIUM LEVEL 136 MMOL/L (136-145); TOTAL PROTEIN 4.7 G/DL (5.7-8.2)
[2023-10-22 07:17] VITALS: TEMP 98.5
[2023-10-22] MEDS: MAG SULF 1GM/100ML (MAG RUN) 1 GM in IV 1 EA IV SCH (08:02)
[2023-10-22] MEDS: MAGNESIUM OXIDE 400MG TAB (MAG-OX) PO SCH (08:03)
[2023-10-22 14:10] VITALS: BP 147/81; TEMP 98.1; O2SAT 95
[2023-10-22 20:41] VITALS: BP 146/83; TEMP 97.7; O2SAT 95
[2023-10-22] MEDS: ANALGESIC BALM CRM 3OZ TOP SCH (21:18)
[2023-10-23 05:09] VITALS: BP 141/82; TEMP 97.7; O2SAT 95
[2023-10-23 07:13] LABS: HEMATOCRIT 25.6 % (36.0-47.0); HEMOGLOBIN 8.4 g/dl (12.0-15.5); MEAN CORPUSCULAR HEMOGLOBIN 33.3 pg (27.0-33.0); MEAN CORPUSCULAR HGB CONC 32.8 g/dl (32.0-36.5); MEAN CORPUSCULAR VOLUME 101.6 fl (80.0-96.0); PLATELET COUNT, AUTOMATED 106 10^3/uL (150-450); RED BLOOD COUNT 2.52 10^6/uL (4.00-5.40); WHITE BLOOD COUNT 7.5 10^3/uL (4.0-10.0)
[2023-10-23 07:38] LABS: ALBUMIN 1.8 G/DL (3.2-5.2); ALKALINE PHOSPHATASE 249 U/L (46-116); ALT/SGPT 61 U/L (7.0-40); AST/SGOT 70 U/L (<34); BLOOD UREA NITROGEN 17 MG/DL (9-23); CALCIUM LEVEL 7.8 MG/DL (8.5-10.1); CARBON DIOXIDE LEVEL 28 MMOL/L (20-31); CHLORIDE LEVEL 103 MMOL/L (98-107); CREATININE FOR GFR 0.63 MG/DL (0.55-1.30); GLOMERULAR FILTRATION RATE > 60.0 (>51); GLUCOSE, FASTING 96 MG/DL (60-100); POTASSIUM SERUM 3.5 MMOL/L (3.5-5.1); SODIUM LEVEL 138 MMOL/L (136-145); TOTAL PROTEIN 4.7 G/DL (5.7-8.2)
[2023-10-23 14:42] VITALS: BP 138/91; TEMP 97.5; O2SAT 95
[2023-10-23 20:12] VITALS: BP 143/90; TEMP 97.7; O2SAT 96
[2023-10-24 05:38] LABS: HEMATOCRIT 25.8 % (36.0-47.0); HEMOGLOBIN 8.6 g/dl (12.0-15.5); MEAN CORPUSCULAR HGB CONC 33.3 g/dl (32.0-36.5); PLATELET COUNT, AUTOMATED 119 10^3/uL (150-450); RED BLOOD COUNT 2.53 10^6/uL (4.00-5.40); WHITE BLOOD COUNT 6.9 10^3/uL (4.0-10.0)
[2023-10-24 06:02] LABS: ALBUMIN 1.8 G/DL (3.2-5.2); ALKALINE PHOSPHATASE 277 U/L (46-116); ALT/SGPT 67 U/L (7.0-40); AST/SGOT 78 U/L (<34); BILIRUBIN,TOTAL 0.8 MG/DL (0.3-1.2); BLOOD UREA NITROGEN 14 MG/DL (9-23); CALCIUM LEVEL 7.6 MG/DL (8.5-10.1); CARBON DIOXIDE LEVEL 30 MMOL/L (20-31); CHLORIDE LEVEL 103 MMOL/L (98-107); CREATININE FOR GFR 0.52 MG/DL (0.55-1.30); GLOMERULAR FILTRATION RATE > 60.0 (>51); GLUCOSE, FASTING 106 MG/DL (60-100); MAGNESIUM LEVEL 1.6 MG/DL (1.8-2.4); PHOSPHORUS LEVEL 2.4 MG/DL (2.5-4.9); POTASSIUM SERUM 3.5 MMOL/L (3.5-5.1); SODIUM LEVEL 138 MMOL/L (136-145); TOTAL PROTEIN 4.9 G/DL (5.7-8.2)
[2023-10-24] MEDS: MAG SULF 1GM/100ML (MAG RUN) 1 GM in IV 1 EA IV SCH (08:22)
[2023-10-24 10:35] VITALS: TEMP 100.2
[2023-10-24 11:30] VITALS: TEMP 98.6
[2023-10-24] MEDS: METOCLOPRAMIDE 10MG TAB PO SCH (12:25)
[2023-10-24 14:00] VITALS: BP 150/75; TEMP 98.5; O2SAT 97
[2023-10-24 20:35] VITALS: BP 145/75; TEMP 98.1; O2SAT 96
[2023-10-24] MEDS: POTASSIUM PHOSPHATE INJ 15 MMOL in D5W 250 ML IV ONE (21:00)
[2023-10-25 04:45] VITALS: BP 142/78; TEMP 97; O2SAT 94
[2023-10-25 06:18] LABS: HEMATOCRIT 25.9 % (36.0-47.0); HEMOGLOBIN 8.4 g/dl (12.0-15.5); MEAN CORPUSCULAR HEMOGLOBIN 33.3 pg (27.0-33.0); MEAN CORPUSCULAR HGB CONC 32.4 g/dl (32.0-36.5); MEAN CORPUSCULAR VOLUME 102.8 fl (80.0-96.0); PLATELET COUNT, AUTOMATED 123 10^3/uL (150-450); RED BLOOD COUNT 2.52 10^6/uL (4.00-5.40); WHITE BLOOD COUNT 6.2 10^3/uL (4.0-10.0)
[2023-10-25 06:39] LABS: ALBUMIN 1.9 G/DL (3.2-5.2); ALKALINE PHOSPHATASE 296 U/L (46-116); ALT/SGPT 63 U/L (7.0-40); AST/SGOT 67 U/L (<34); BILIRUBIN,TOTAL 0.7 MG/DL (0.3-1.2); BLOOD UREA NITROGEN 14 MG/DL (9-23); CALCIUM LEVEL 7.4 MG/DL (8.5-10.1); CARBON DIOXIDE LEVEL 31 MMOL/L (20-31); CHLORIDE LEVEL 101 MMOL/L (98-107); GLOMERULAR FILTRATION RATE > 60.0 (>51); GLUCOSE, FASTING 115 MG/DL (60-100); POTASSIUM SERUM 3.5 MMOL/L (3.5-5.1); SODIUM LEVEL 137 MMOL/L (136-145); TOTAL PROTEIN 4.8 G/DL (5.7-8.2)
[2023-10-25 10:34] LABS: MAGNESIUM LEVEL 1.7 MG/DL (1.8-2.4); PHOSPHORUS LEVEL 2.6 MG/DL (2.5-4.9)
[2023-10-25 14:00] VITALS: BP 143/78; TEMP 97.9; O2SAT 95
[2023-10-25 20:30] VITALS: BP 142/79; TEMP 97.9; O2SAT 95
[2023-10-26 05:40] VITALS: BP 139/79; TEMP 97.7; O2SAT 95
[2023-10-26 07:12] LABS: BLOOD UREA NITROGEN 13 MG/DL (9-23); CALCIUM LEVEL 7.6 MG/DL (8.5-10.1); CARBON DIOXIDE LEVEL 33 MMOL/L (20-31); CHLORIDE LEVEL 103 MMOL/L (98-107); CREATININE FOR GFR 0.47 MG/DL (0.55-1.30); GLOMERULAR FILTRATION RATE > 60.0 (>51); GLUCOSE, FASTING 108 MG/DL (60-100); MAGNESIUM LEVEL 1.6 MG/DL (1.8-2.4); PHOSPHORUS LEVEL 2.2 MG/DL (2.5-4.9); POTASSIUM SERUM 3.6 MMOL/L (3.5-5.1); SODIUM LEVEL 138 MMOL/L (136-145)
[2023-10-26 14:00] VITALS: BP 141/80; TEMP 97.9; O2SAT 96
[2023-10-26 20:10] VITALS: BP 138/80; TEMP 97.7; O2SAT 96
[2023-10-26] MEDS: MAG SULF 1GM/100ML (MAG RUN) 1 GM in IV 1 EA IV SCH (20:59)
[2023-10-26] MEDS: CALAMINE LOTION 177 ML BTL TOP SCH (21:02)
[2023-10-27] MEDS: POTASSIUM PHOSPHATE INJ 30 MMOL in D5W 500 ML IV ONE (00:48)
[2023-10-27 06:00] VITALS: BP 135/79; TEMP 98.1; O2SAT 94
[2023-10-27 06:30] LABS: BASO % 0.2 % (0.0-1.0); EOS # 0.3 10^3/uL (0.0-0.5); EOS % 5.6 % (0.0-3.0); HEMATOCRIT 24.7 % (36.0-47.0); HEMOGLOBIN 8.1 g/dl (12.0-15.5); LYMPH % 19.2 % (24.0-44.0); MEAN CORPUSCULAR HEMOGLOBIN 33.3 pg (27.0-33.0); MEAN CORPUSCULAR HGB CONC 32.8 g/dl (32.0-36.5); MEAN CORPUSCULAR VOLUME 101.6 fl (80.0-96.0); MONO # 0.7 10^3/uL (0.0-0.8); MONO % 13.6 % (2.0-8.0); NEUTROPHILS # 3.1 10^3/uL (1.5-8.5); PLATELET COUNT, AUTOMATED 136 10^3/uL (150-450); RED BLOOD COUNT 2.43 10^6/uL (4.00-5.40); WHITE BLOOD COUNT 5.2 10^3/uL (4.0-10.0)
[2023-10-27 07:04] LABS: BLOOD UREA NITROGEN 13 MG/DL (9-23); CALCIUM LEVEL 7.6 MG/DL (8.5-10.1); CARBON DIOXIDE LEVEL 32 MMOL/L (20-31); CHLORIDE LEVEL 98 MMOL/L (98-107); CREATININE FOR GFR 0.45 MG/DL (0.55-1.30); GLOMERULAR FILTRATION RATE > 60.0 (>51); GLUCOSE, FASTING 112 MG/DL (60-100); MAGNESIUM LEVEL 1.9 MG/DL (1.8-2.4); PHOSPHORUS LEVEL 3.8 MG/DL (2.5-4.9); POTASSIUM SERUM 3.9 MMOL/L (3.5-5.1); SODIUM LEVEL 136 MMOL/L (136-145)
[2023-10-27 14:00] VITALS: BP 144/88; TEMP 97.7; O2SAT 95
[2023-10-27 21:30] VITALS: BP 153/85; TEMP 98.1; O2SAT 95
[2023-10-28 03:23] VITALS: TEMP 99
[2023-10-28 05:57] VITALS: BP 141/82; TEMP 97.9; O2SAT 93
[2023-10-28 06:16] LABS: BASO % 0.2 % (0.0-1.0); EOS # 0.2 10^3/uL (0.0-0.5); HEMATOCRIT 24.5 % (36.0-47.0); LYMPH # 0.6 10^3/uL (1.5-5.0); MEAN CORPUSCULAR HEMOGLOBIN 33.9 pg (27.0-33.0); MEAN CORPUSCULAR HGB CONC 32.7 g/dl (32.0-36.5); MEAN CORPUSCULAR VOLUME 103.8 fl (80.0-96.0); MONO # 0.7 10^3/uL (0.0-0.8); MONO % 10.3 % (2.0-8.0); NEUTROPHILS # 4.8 10^3/uL (1.5-8.5); PLATELET COUNT, AUTOMATED 124 10^3/uL (150-450); RED BLOOD COUNT 2.36 10^6/uL (4.00-5.40); WHITE BLOOD COUNT 6.3 10^3/uL (4.0-10.0)
[2023-10-28 06:53] LABS: BLOOD UREA NITROGEN 14 MG/DL (9-23); CALCIUM LEVEL 7.8 MG/DL (8.5-10.1); CARBON DIOXIDE LEVEL 32 MMOL/L (20-31); CHLORIDE LEVEL 100 MMOL/L (98-107); CREATININE FOR GFR 0.47 MG/DL (0.55-1.30); GLOMERULAR FILTRATION RATE > 60.0 (>51); GLUCOSE, FASTING 122 MG/DL (60-100); MAGNESIUM LEVEL 1.6 MG/DL (1.8-2.4); POTASSIUM SERUM 3.9 MMOL/L (3.5-5.1); SODIUM LEVEL 140 MMOL/L (136-145)
[2023-10-28] MEDS: MAG SULF 1GM/100ML (MAG RUN) 1 GM in IV 1 EA IV SCH (08:15)
[2023-10-28 14:00] VITALS: BP 108/61; TEMP 97.3; O2SAT 91
[2023-10-29 05:00] VITALS: BP 143/84; TEMP 98.2; O2SAT 93
[2023-10-29 05:17] LABS: EOS # 0.2 10^3/uL (0.0-0.5); EOS % 4.5 % (0.0-3.0); HEMATOCRIT 25.3 % (36.0-47.0); HEMOGLOBIN 8.2 g/dl (12.0-15.5); LYMPH # 0.8 10^3/uL (1.5-5.0); LYMPH % 18.8 % (24.0-44.0); MEAN CORPUSCULAR HEMOGLOBIN 33.6 pg (27.0-33.0); MEAN CORPUSCULAR HGB CONC 32.4 g/dl (32.0-36.5); MEAN CORPUSCULAR VOLUME 103.7 fl (80.0-96.0); MONO # 0.5 10^3/uL (0.0-0.8); MONO % 11.8 % (2.0-8.0); NEUTROPHILS # 2.8 10^3/uL (1.5-8.5); NEUTROPHILS % 64.7 % (36.0-66.0); PLATELET COUNT, AUTOMATED 126 10^3/uL (150-450); RED BLOOD COUNT 2.44 10^6/uL (4.00-5.40); WHITE BLOOD COUNT 4.3 10^3/uL (4.0-10.0)
[2023-10-29 05:46] LABS: BLOOD UREA NITROGEN 13 MG/DL (9-23); CALCIUM LEVEL 7.8 MG/DL (8.5-10.1); CARBON DIOXIDE LEVEL 33 MMOL/L (20-31); CHLORIDE LEVEL 102 MMOL/L (98-107); CREATININE FOR GFR 0.43 MG/DL (0.55-1.30); GLOMERULAR FILTRATION RATE > 60.0 (>51); GLUCOSE, FASTING 114 MG/DL (60-100); MAGNESIUM LEVEL 1.7 MG/DL (1.8-2.4); PHOSPHORUS LEVEL 2.9 MG/DL (2.5-4.9); POTASSIUM SERUM 3.6 MMOL/L (3.5-5.1); SODIUM LEVEL 140 MMOL/L (136-145)
[2023-10-29] MEDS: MAG SULF 1GM/100ML (MAG RUN) 1 GM in IV 1 EA IV SCH (07:21)
[2023-10-29 14:00] VITALS: BP 133/80; TEMP 97.3; O2SAT 100
[2023-10-29] MEDS: ACYCLOVIR 200 MG CAPSULE PO SCH (17:33)
[2023-10-29 20:27] VITALS: BP 127/73; TEMP 97.9; O2SAT 95
[2023-10-30 06:21] VITALS: BP 125/72; TEMP 98.1; O2SAT 95
[2023-10-30 06:38] LABS: BASO % 0.2 % (0.0-1.0); EOS # 0.2 10^3/uL (0.0-0.5); EOS % 3.3 % (0.0-3.0); HEMOGLOBIN 8.3 g/dl (12.0-15.5); LYMPH # 1.1 10^3/uL (1.5-5.0); LYMPH % 23.4 % (24.0-44.0); MEAN CORPUSCULAR HEMOGLOBIN 33.5 pg (27.0-33.0); MEAN CORPUSCULAR HGB CONC 31.9 g/dl (32.0-36.5); MEAN CORPUSCULAR VOLUME 104.8 fl (80.0-96.0); MONO # 0.7 10^3/uL (0.0-0.8); MONO % 13.9 % (2.0-8.0); NEUTROPHILS # 2.9 10^3/uL (1.5-8.5); PLATELET COUNT, AUTOMATED 143 10^3/uL (150-450); RED BLOOD COUNT 2.48 10^6/uL (4.00-5.40); WHITE BLOOD COUNT 4.8 10^3/uL (4.0-10.0)
[2023-10-30 07:04] LABS: BLOOD UREA NITROGEN 11 MG/DL (9-23); CALCIUM LEVEL 7.9 MG/DL (8.5-10.1); CARBON DIOXIDE LEVEL 33 MMOL/L (20-31); CHLORIDE LEVEL 101 MMOL/L (98-107); CREATININE FOR GFR 0.44 MG/DL (0.55-1.30); GLOMERULAR FILTRATION RATE > 60.0 (>51); GLUCOSE, FASTING 108 MG/DL (60-100); MAGNESIUM LEVEL 1.7 MG/DL (1.8-2.4); PHOSPHORUS LEVEL 2.9 MG/DL (2.5-4.9); POTASSIUM SERUM 3.7 MMOL/L (3.5-5.1); SODIUM LEVEL 138 MMOL/L (136-145)
[2023-10-30] MEDS: MAG SULF 1GM/100ML (MAG RUN) 1 GM in IV 1 EA IV SCH (08:13)
[2023-10-30] MEDS ORDERED: diphenhydrAMINE 50MG/ML VIAL IV PRN (08:25)
[2023-10-30] MEDS ORDERED: THIAMINE 100 MG TAB PEG SCH (09:00)
[2023-10-30] MEDS ORDERED: ANEXSIA, NORCO 7.5MG/325MG TABLET(HYDROCODONE/APAP) PEG PRN ×2 (09:55→10:29)
[2023-10-30] MEDS ORDERED: ANEXSIA, NORCO 7.5MG/325MG TABLET(HYDROCODONE/APAP) PO PRN (09:55)
[2023-10-30] MEDS ORDERED: NORCO, ANEXSIA 5/325MG TABLET (HYDROcodone/ACETAMINOPHEN) PEG PRN (10:31)
[2023-10-30 14:00] VITALS: BP 123/77; TEMP 97.3; O2SAT 93
[2023-10-30 15:25] LABS: IONIZED CALCIUM 4.5 MG/DL (4.5-5.3)
[2023-10-30 15:51] LABS: MAGNESIUM LEVEL 2.2 MG/DL (1.8-2.4)
[2023-10-30] MEDS: NORCO, ANEXSIA 5/325MG TABLET (HYDROcodone/ACETAMINOPHEN) PEG PRN (16:19)
[2023-10-30] MEDS: diphenhydrAMINE CREAM 30GM TOP SCH (17:00)
[2023-10-30 21:45] VITALS: BP 124/72; TEMP 97.7; O2SAT 95
[2023-10-30 21:46] VITALS: TEMP 97.6
[2023-10-30] MEDS: predniSONE 20 MG TAB PO SCH (22:13)
[2023-10-31 06:18] VITALS: BP 124/73; TEMP 97.7; O2SAT 96
[2023-10-31 06:19] VITALS: TEMP 96.7
[2023-10-31 07:15] LABS: EOS % 0.2 % (0.0-3.0); HEMOGLOBIN 8.4 g/dl (12.0-15.5); LYMPH # 0.7 10^3/uL (1.5-5.0); LYMPH % 13.6 % (24.0-44.0); MEAN CORPUSCULAR HEMOGLOBIN 34.1 pg (27.0-33.0); MEAN CORPUSCULAR HGB CONC 32.3 g/dl (32.0-36.5); MEAN CORPUSCULAR VOLUME 105.7 fl (80.0-96.0); MONO # 0.3 10^3/uL (0.0-0.8); MONO % 6.4 % (2.0-8.0); NEUTROPHILS # 3.9 10^3/uL (1.5-8.5); NEUTROPHILS % 79.6 % (36.0-66.0); PLATELET COUNT, AUTOMATED 149 10^3/uL (150-450); RED BLOOD COUNT 2.46 10^6/uL (4.00-5.40); WHITE BLOOD COUNT 4.9 10^3/uL (4.0-10.0)
[2023-10-31 07:33] LABS: BLOOD UREA NITROGEN 14 MG/DL (9-23); CALCIUM LEVEL 8.3 MG/DL (8.5-10.1); CARBON DIOXIDE LEVEL 33 MMOL/L (20-31); CHLORIDE LEVEL 103 MMOL/L (98-107); CREATININE FOR GFR 0.42 MG/DL (0.55-1.30); GLOMERULAR FILTRATION RATE > 60.0 (>51); GLUCOSE, FASTING 153 MG/DL (60-100); MAGNESIUM LEVEL 1.8 MG/DL (1.8-2.4); PHOSPHORUS LEVEL 2.9 MG/DL (2.5-4.9); SODIUM LEVEL 140 MMOL/L (136-145)
[2023-10-31] MEDS ORDERED: MUSCCRE9 TOP (07:34)
[2023-10-31] MEDS ORDERED: PRED20TA PEG (07:34)
[2023-10-31] MEDS ORDERED: FOLI1TAB11 PEG (07:34)
[2023-10-31] MEDS ORDERED: MYLASSUD PEG (07:34)
[2023-10-31] MEDS ORDERED: HYDR-3715 PEG (07:34)
[2023-10-31] MEDS ORDERED: LIDO30CR18 TOP (07:34)
[2023-10-31] MEDS ORDERED: NYST10006 TOP (07:34)
[2023-10-31] MEDS ORDERED: PROC10TA5 PEG (07:34)
[2023-10-31] MEDS ORDERED: DIPHCR TOP (07:34)
[2023-10-31] MEDS ORDERED: MOM30SS2 PEG (07:34)
[2023-10-31] MEDS ORDERED: MAGN400T2 PEG (07:34)
[2023-10-31] MEDS ORDERED: PROT1TAB2 PEG (07:34)
[2023-10-31] MEDS ORDERED: RISATAB3 PEG (07:34)
[2023-10-31] MEDS ORDERED: ANTI2TAB16 PEG (07:34)
[2023-10-31] MEDS ORDERED: ONDA4TAB6 PEG (07:34)
[2023-10-31] MEDS ORDERED: METO10TA2 PEG (07:34)
[2023-10-31] MEDS ORDERED: QUET1TAB17 PEG (07:34)
[2023-10-31] MEDS ORDERED: ACET325S6 PEG (07:34)
[2023-10-31] MEDS ORDERED: XARE10TA PEG (07:34)
[2023-10-31] MEDS ORDERED: TRAZ-252 PEG (07:34)
[2023-10-31] MEDS ORDERED: DOCU5LIQ GT (07:34)
== END 2023-10-31 11:49 | DRG 808 ==
LOC: M ED 20:46 → M ED INP 09-27 02:02 → ENRESERV 09-27 14:02 → M MSPAV 09-27 15:15 → M PCU 09-28 14:37 → M MSPAV 10-03 20:54
PROVIDERS: ADMIT Family Medicine; ATTEND Internal Medicine
PROC: B246ZZZ Ultrasonography of Right and Left Heart (ICD-10-PCS; 2023-09-26)
PROC: 30233N1 Transfusion of Nonautologous Red Blood Cells into Peripheral Vein, Percutaneous Approach (ICD-10-PCS; principal; 2023-09-30)
PROC: 009U3ZX Drainage of Spinal Canal, Percutaneous Approach, Diagnostic (ICD-10-PCS; 2023-10-17)
PROC: 07DR3ZX Extraction of Iliac Bone Marrow, Percutaneous Approach, Diagnostic (ICD-10-PCS; 2023-10-18)
PROC: 0DH64UZ Insertion of Feeding Device into Stomach, Percutaneous Endoscopic Approach (ICD-10-PCS; 2023-10-19)
DX: D61.810 Antineoplastic chemotherapy induced pancytopenia (principal); G93.41 Metabolic encephalopathy; E51.2 Wernicke's encephalopathy; N39.0 Urinary tract infection, site not specified; D68.61 Antiphospholipid syndrome; N17.9 Acute kidney failure, unspecified; T80.212A Local infection due to central venous catheter, initial encounter; B02.39 Other herpes zoster eye disease; E87.20 Acidosis, unspecified; E46 Unspecified protein-calorie malnutrition; C54.1 Malignant neoplasm of endometrium; K76.0 Fatty (change of) liver, not elsewhere classified; R91.8 Other nonspecific abnormal finding of lung field; E83.42 Hypomagnesemia; E87.6 Hypokalemia; D70.9 Neutropenia, unspecified; R53.83 Other fatigue; U09.9 Post COVID-19 condition, unspecified; Z79.01 Long term (current) use of anticoagulants; Z79.899 Other long term (current) drug therapy; Z88.0 Allergy status to penicillin; Z88.1 Allergy status to other antibiotic agents; Z88.8 Allergy status to other drugs, medicaments and biological substances; Z86.718 Personal history of other venous thrombosis and embolism; Z86.711 Personal history of pulmonary embolism; Z90.79 Acquired absence of other genital organ(s); R62.7 Adult failure to thrive; E83.39 Other disorders of phosphorus metabolism; T42.6X5A Adverse effect of other antiepileptic and sedative-hypnotic drugs, initial encounter; R13.10 Dysphagia, unspecified; T36.8X5A Adverse effect of other systemic antibiotics, initial encounter; R21 Rash and other nonspecific skin eruption; R29.810 Facial weakness; K12.31 Oral mucositis (ulcerative) due to antineoplastic therapy; L89.91 Pressure ulcer of unspecified site, stage 1; I10 Essential (primary) hypertension; I77.6 Arteritis, unspecified; E83.51 Hypocalcemia

== ENCOUNTER → 2023-11-07 | Outpatient (REF) | payer OTHER ==
[~2023-11-07] MED LIST changes: +ACET325S6 PEG; +ANTI2TAB16 PEG; +ANTI2TAB16 PO; +DIPHCR TOP; +DOCU5LIQ GT; +FOLI1TAB11 PEG; +HYDR-3715 PEG; +HYDR-4571 PO; +MAGN400T2 PEG; +METO10TA2 PEG; +MOM30SS2 PEG; +MUSCCRE9 TOP; +MYLASSUD PEG; +NYST10006 TOP; +OMEP40CA4 PEG; +ONDA4TAB6 PEG; +PRED20TA PEG; +PROC10TA5 PEG; +PROC25SU27 PR; +PROT1TAB2 PEG; +QUET1TAB17 PEG; +RISATAB3 PEG; +TRAZ-252 PEG; +XARE10TA PEG
[2023-11-07 13:28] LABS: BASO % 0.1 % (0.0-1.0); EOS % 0.1 % (0.0-3.0); HEMATOCRIT 34.1 % (36.0-47.0); HEMOGLOBIN 11.4 g/dl (12.0-15.5); LYMPH # 0.7 10^3/uL (1.5-5.0); LYMPH % 4.9 % (24.0-44.0); MEAN CORPUSCULAR HEMOGLOBIN 34.8 pg (27.0-33.0); MEAN CORPUSCULAR HGB CONC 33.4 g/dl (32.0-36.5); MONO % 6.7 % (2.0-8.0); NEUTROPHILS # 12.5 10^3/uL (1.5-8.5); NEUTROPHILS % 87.8 % (36.0-66.0); PLATELET COUNT, AUTOMATED 184 10^3/uL (150-450); RED BLOOD COUNT 3.28 10^6/uL (4.00-5.40); WHITE BLOOD COUNT 14.3 10^3/uL (4.0-10.0)
[2023-11-07 13:53] LABS: ALBUMIN 2.8 G/DL (3.2-5.2); ALKALINE PHOSPHATASE 249 U/L (46-116); ALT/SGPT 246 U/L (7.0-40); AST/SGOT 215 U/L (<34); BILIRUBIN,TOTAL 0.6 MG/DL (0.3-1.2); BLOOD UREA NITROGEN 31 MG/DL (9-23); CALCIUM LEVEL 9.3 MG/DL (8.5-10.1); CARBON DIOXIDE LEVEL 28 MMOL/L (20-31); CHLORIDE LEVEL 102 MMOL/L (98-107); CREATININE FOR GFR 0.38 MG/DL (0.55-1.30); GLOMERULAR FILTRATION RATE > 60.0 (>51); GLUCOSE, FASTING 128 MG/DL (60-100); POTASSIUM SERUM 4.2 MMOL/L (3.5-5.1); SODIUM LEVEL 136 MMOL/L (136-145); TOTAL PROTEIN 6.2 G/DL (5.7-8.2)
== END ==
LOC: SKLAB2 07:00
PROVIDERS: ATTEND Internal Medicine
DX: Z79.899 Other long term (current) drug therapy (principal)

== ENCOUNTER → 2023-11-10 | Outpatient (CLI) | payer MEDICARE, OTHER ==
[2023-11-14 23:11] LABS: BULLOUS PEMPHIGOID AG 2 <2 RU/mL (Neg: <20)
== END ==
LOC: M LAB 12:22
PROVIDERS: ATTEND Nurse Practitioner Family
DX: R21 Rash and other nonspecific skin eruption (principal)

== ENCOUNTER → 2023-11-21 | Outpatient (REF) ==
[~2023-11-21] MED LIST changes: +ONDA-282 PEG; +ONDA-282 PO; -ONDA4TAB6 PEG; -ONDA4TAB6 PO
[2023-11-21 06:46] LABS: HEMATOCRIT 33.8 % (36.0-47.0); HEMOGLOBIN 11.6 g/dl (12.0-15.5); LYMPH # 1.2 10^3/uL (1.5-5.0); LYMPH % 16.7 % (24.0-44.0); MEAN CORPUSCULAR HGB CONC 34.3 g/dl (32.0-36.5); MEAN CORPUSCULAR VOLUME 102.1 fl (80.0-96.0); MONO # 0.7 10^3/uL (0.0-0.8); MONO % 9.6 % (2.0-8.0); NEUTROPHILS # 5.1 10^3/uL (1.5-8.5); NEUTROPHILS % 73.4 % (36.0-66.0); RED BLOOD COUNT 3.31 10^6/uL (4.00-5.40); WHITE BLOOD COUNT 6.9 10^3/uL (4.0-10.0)
[2023-11-21 07:07] LABS: ALBUMIN 2.7 G/DL (3.2-5.2); ALKALINE PHOSPHATASE 122 U/L (46-116); ALT/SGPT 110 U/L (7.0-40); AST/SGOT 70 U/L (<34); BILIRUBIN,TOTAL 0.4 MG/DL (0.3-1.2); BLOOD UREA NITROGEN 31 MG/DL (9-23); CALCIUM LEVEL 9.3 MG/DL (8.5-10.1); CARBON DIOXIDE LEVEL 31 MMOL/L (20-31); CHLORIDE LEVEL 102 MMOL/L (98-107); CREATININE FOR GFR 0.36 MG/DL (0.55-1.30); GLOMERULAR FILTRATION RATE > 60.0 (>51); GLUCOSE, FASTING 104 MG/DL (60-100); POTASSIUM SERUM 3.9 MMOL/L (3.5-5.1); SODIUM LEVEL 138 MMOL/L (136-145); TOTAL PROTEIN 5.5 G/DL (5.7-8.2)
[2023-11-21 08:00] LABS: PLATELET COUNT, AUTOMATED 80 10^3/uL (150-450)
== END ==
LOC: SKLAB2 08:37
PROVIDERS: ATTEND Internal Medicine
DX: R74.01 Elevation of levels of liver transaminase levels (principal)

== ENCOUNTER → 2023-12-07 | Outpatient (REF) ==
[~2023-12-07] MED LIST changes: +THIA100TA PO; +VITA200038 PO
[2023-12-07 11:31] LABS: BLOOD UREA NITROGEN 21 MG/DL (9-23); CALCIUM LEVEL 9.2 MG/DL (8.5-10.1); CARBON DIOXIDE LEVEL 26 MMOL/L (20-31); CHLORIDE LEVEL 106 MMOL/L (98-107); CREATININE FOR GFR 0.39 MG/DL (0.55-1.30); GLOMERULAR FILTRATION RATE > 60.0 (>51); GLUCOSE, FASTING 109 MG/DL (60-100); MAGNESIUM LEVEL 1.8 MG/DL (1.8-2.4); POTASSIUM SERUM 3.9 MMOL/L (3.5-5.1); SODIUM LEVEL 140 MMOL/L (136-145)
== END ==
LOC: SKLAB2 09:40
PROVIDERS: ATTEND Internal Medicine
DX: E83.42 Hypomagnesemia (principal)

== ENCOUNTER → 2023-12-12 | Outpatient (REF) | payer OTHER ==
[2023-12-12 10:29] LABS: BASO % 0.1 % (0.0-1.0); EOS # 0.1 10^3/uL (0.0-0.5); EOS % 0.7 % (0.0-3.0); HEMATOCRIT 36.3 % (36.0-47.0); HEMOGLOBIN 12.7 g/dl (12.0-15.5); LYMPH # 1.6 10^3/uL (1.5-5.0); MEAN CORPUSCULAR HEMOGLOBIN 35.5 pg (27.0-33.0); MEAN CORPUSCULAR VOLUME 101.4 fl (80.0-96.0); MONO # 0.6 10^3/uL (0.0-0.8); MONO % 8.7 % (2.0-8.0); NEUTROPHILS # 4.5 10^3/uL (1.5-8.5); NEUTROPHILS % 66.4 % (36.0-66.0); PLATELET COUNT, AUTOMATED 113 10^3/uL (150-450); RED BLOOD COUNT 3.58 10^6/uL (4.00-5.40); WHITE BLOOD COUNT 6.8 10^3/uL (4.0-10.0)
[2023-12-12 10:57] LABS: ALBUMIN 2.7 G/DL (3.2-5.2); ALKALINE PHOSPHATASE 100 U/L (46-116); ALT/SGPT 89 U/L (7.0-40); AST/SGOT 38 U/L (<34); BILIRUBIN,TOTAL 0.8 MG/DL (0.3-1.2); BLOOD UREA NITROGEN 17 MG/DL (9-23); CARBON DIOXIDE LEVEL 26 MMOL/L (20-31); CHLORIDE LEVEL 105 MMOL/L (98-107); CREATININE FOR GFR 0.48 MG/DL (0.55-1.30); GLOMERULAR FILTRATION RATE > 60.0 (>51); GLUCOSE, FASTING 140 MG/DL (60-100); POTASSIUM SERUM 3.9 MMOL/L (3.5-5.1); SODIUM LEVEL 139 MMOL/L (136-145); TOTAL PROTEIN 5.4 G/DL (5.7-8.2)
== END ==
LOC: SKLAB2 09:28
PROVIDERS: ATTEND Internal Medicine
DX: R10.9 Unspecified abdominal pain (principal)

== ENCOUNTER → 2023-12-12 | Outpatient (CLI) | payer OTHER | LOC: M RAD 10:10 | PROVIDERS: ATTEND Internal Medicine | DX: M47.896 Other spondylosis, lumbar region (principal); M47.816 Spondylosis without myelopathy or radiculopathy, lumbar region; M54.9 Dorsalgia, unspecified; R30.0 Dysuria ==

== ENCOUNTER → 2023-12-14 | Outpatient (CLI) | payer OTHER | LOC: M RAD 08:33 | PROVIDERS: ATTEND Nurse Practitioner Family | DX: R10.9 Unspecified abdominal pain (principal); R93.5 Abnormal findings on diagnostic imaging of other abdominal regions, including retroperitoneum ==

== ENCOUNTER → 2024-01-03 | Outpatient (CLI) | payer OTHER, MEDICARE ==
[~2024-01-03] VITALS: Ht 170.2 cm; Wt 82.6 kg
[~2024-01-03] MED LIST changes: +LOTR1CRE3 TOP; +METH85CR6 TOP; -MUSCCRE9 TOP
[2024-01-03 08:55] VITALS: BP 132/92; O2SAT 96
== END ==
LOC: M PAL 08:45
PROVIDERS: ATTEND Nurse Practitioner Adult Health
DX: G93.40 Encephalopathy, unspecified (principal); R62.7 Adult failure to thrive; D61.818 Other pancytopenia; R10.9 Unspecified abdominal pain; C54.1 Malignant neoplasm of endometrium; Z51.5 Encounter for palliative care; Z79.01 Long term (current) use of anticoagulants; Z79.899 Other long term (current) drug therapy; Z80.1 Family history of malignant neoplasm of trachea, bronchus and lung; Z82.61 Family history of arthritis; Z82.69 Family history of other diseases of the musculoskeletal system and connective tissue; Z88.0 Allergy status to penicillin; Z88.1 Allergy status to other antibiotic agents; Z88.8 Allergy status to other drugs, medicaments and biological substances; Z90.710 Acquired absence of both cervix and uterus; Z90.79 Acquired absence of other genital organ(s); Z92.21 Personal history of antineoplastic chemotherapy; Z93.1 Gastrostomy status

== ENCOUNTER → 2024-01-15 | Outpatient (CLI) | payer OTHER ==
[~2024-01-15] MED LIST changes: +GASTROGRAFIN SOLUTION 30ML As Ordered ONE; +ISOVUE-370 76% 100ML VIAL As Ordered ONE; -METH85CR6 TOP; +MUSCCRE9 TOP
== END ==
LOC: M RAD 14:17
PROVIDERS: ATTEND Specialist
DX: C54.1 Malignant neoplasm of endometrium (principal); K76.0 Fatty (change of) liver, not elsewhere classified
CPT/HCPCS: 74177; Q9963; Q9967

== ENCOUNTER → 2024-02-20 | Outpatient (CLI) | payer OTHER, MEDICARE ==
[~2024-02-20] VITALS: Ht 170.2 cm; Wt 83.3 kg
[~2024-02-20] MED LIST changes: -GASTROGRAFIN SOLUTION 30ML As Ordered ONE; -ISOVUE-370 76% 100ML VIAL As Ordered ONE; +METH85CR6 TOP; +METO10TA2 PO; -MUSCCRE9 TOP; +PROC5TAB57 PO; +QUET1TAB17 PO; +TRAZ-252 PO
[2024-02-20 13:43] VITALS: BP 125/83; O2SAT 98
== END ==
LOC: M PAL 13:09
PROVIDERS: ATTEND Nurse Practitioner Adult Health
DX: G93.40 Encephalopathy, unspecified (principal); R62.7 Adult failure to thrive; D61.818 Other pancytopenia; R10.9 Unspecified abdominal pain; R51.9 Headache, unspecified; K11.7 Disturbances of salivary secretion; R11.0 Nausea; C54.1 Malignant neoplasm of endometrium; Z51.5 Encounter for palliative care; Z79.01 Long term (current) use of anticoagulants; Z79.899 Other long term (current) drug therapy; Z80.1 Family history of malignant neoplasm of trachea, bronchus and lung; Z82.61 Family history of arthritis; Z82.69 Family history of other diseases of the musculoskeletal system and connective tissue; Z88.0 Allergy status to penicillin; Z88.1 Allergy status to other antibiotic agents; Z88.8 Allergy status to other drugs, medicaments and biological substances; Z90.710 Acquired absence of both cervix and uterus; Z90.722 Acquired absence of ovaries, bilateral; Z90.79 Acquired absence of other genital organ(s); Z92.21 Personal history of antineoplastic chemotherapy; Z92.3 Personal history of irradiation; Z93.1 Gastrostomy status

== ENCOUNTER → 2024-02-22 | Outpatient (CLI) | payer MEDICARE, OTHER | LOC: M PLAIMG 10:56 | PROVIDERS: ATTEND Nurse Practitioner Adult Health | DX: R05.9 Cough, unspecified (principal) ==

== ENCOUNTER 2024-03-14 15:28 | Emergency (ER) | payer OTHER ==
[~2024-03-14] VITALS: Ht 170.2 cm; Wt 82.7 kg
[2024-03-14 15:36] VITALS: TEMP 97.9
[2024-03-14] MEDS ORDERED: SODIUM CHLORIDE 0.9% INJ 10 ML SYR IV PRN (17:55)
[2024-03-14 18:41] LABS: BASO % 0.2 % (0.0-1.0); EOS # 0.2 10^3/uL (0.0-0.5); EOS % 2.8 % (0.0-3.0); HEMOGLOBIN 12.1 g/dl (12.0-15.5); LYMPH # 1.7 10^3/uL (1.5-5.0); LYMPH % 30.5 % (24.0-44.0); MEAN CORPUSCULAR HEMOGLOBIN 33.6 pg (27.0-33.0); MEAN CORPUSCULAR HGB CONC 34.6 g/dl (32.0-36.5); MEAN CORPUSCULAR VOLUME 97.2 fl (80.0-96.0); MONO # 0.7 10^3/uL (0.0-0.8); MONO % 12.9 % (2.0-8.0); NEUTROPHILS % 53.4 % (36.0-66.0); PLATELET COUNT, AUTOMATED 141 10^3/uL (150-450); WHITE BLOOD COUNT 5.7 10^3/uL (4.0-10.0)
[2024-03-14 19:13] LABS: BLOOD UREA NITROGEN 13 MG/DL (9-23); CALCIUM LEVEL 8.8 MG/DL (8.5-10.1); CARBON DIOXIDE LEVEL 29 MMOL/L (20-31); CHLORIDE LEVEL 105 MMOL/L (98-107); CREATININE FOR GFR 0.49 MG/DL (0.55-1.30); GLOMERULAR FILTRATION RATE > 60.0 (>51); GLUCOSE, FASTING 105 MG/DL (60-100); POTASSIUM SERUM 3.8 MMOL/L (3.5-5.1); SODIUM LEVEL 137 MMOL/L (136-145)
[2024-03-14] MEDS ORDERED: ISOVUE-370 76% 100ML VIAL As Ordered ONE (20:05)
[2024-03-14] MEDS: NS 1,000 ML IV ONE (20:56)
[2024-03-15 00:04] LABS: PROTHROMBIN TIME 15.6 SECONDS (12.5-14.5)
[2024-03-15 00:05] LABS: INR 1.28
[2024-03-15] MEDS ORDERED: CEFP200T PO (00:30)
[2024-03-15] MEDS: cefTRIAXone SOD 1 GM in D5W MINI-BAG PLUS 50 ML IV ONE (01:05)
[2024-03-15] MEDS: RIVAROXABAN 10MG TAB (XARELTO) PO ONE (01:30)
[2024-03-15 02:14] VITALS: BP 100/59; O2SAT 95
== END 2024-03-15 02:16 | disposition home or self-care (01) ==
LOC: M ED 15:28
DX: N30.00 Acute cystitis without hematuria (principal); N93.9 Abnormal uterine and vaginal bleeding, unspecified; D35.02 Benign neoplasm of left adrenal gland; F41.9 Anxiety disorder, unspecified; K21.9 Gastro-esophageal reflux disease without esophagitis; K58.9 Irritable bowel syndrome, unspecified; Z79.83 Long term (current) use of bisphosphonates; Z79.2 Long term (current) use of antibiotics; Z79.899 Other long term (current) drug therapy; Z86.718 Personal history of other venous thrombosis and embolism; Z88.8 Allergy status to other drugs, medicaments and biological substances
CPT/HCPCS: 74177; 80048; 81001; 85025; 85610; 85730; 86850; 86900; 86901; 87086; 87210; 87486; 87581; 87633; 87798; 96361; 96365; 99284; J0696; Q9967

== ENCOUNTER 2024-03-26 12:49 | Emergency (ER) | payer OTHER, BC ==
[~2024-03-26] VITALS: Ht 170.2 cm; Wt 82.7 kg
[~2024-03-26 12:49] MED LIST changes: +CEFP200T PO
[2024-03-26 14:26] LABS: EOS # 0.2 10^3/uL (0.0-0.5); HEMATOCRIT 38.1 % (36.0-47.0); HEMOGLOBIN 13.2 g/dl (12.0-15.5); LYMPH # 1.5 10^3/uL (1.5-5.0); LYMPH % 28.2 % (24.0-44.0); MEAN CORPUSCULAR HEMOGLOBIN 32.8 pg (27.0-33.0); MEAN CORPUSCULAR HGB CONC 34.6 g/dl (32.0-36.5); MEAN CORPUSCULAR VOLUME 94.8 fl (80.0-96.0); MONO # 0.5 10^3/uL (0.0-0.8); MONO % 9.6 % (2.0-8.0); NEUTROPHILS # 3.1 10^3/uL (1.5-8.5); PLATELET COUNT, AUTOMATED 162 10^3/uL (150-450); RED BLOOD COUNT 4.02 10^6/uL (4.00-5.40); WHITE BLOOD COUNT 5.3 10^3/uL (4.0-10.0)
[2024-03-26 15:00] LABS: ALKALINE PHOSPHATASE 133 U/L (46-116); ALT/SGPT 93 U/L (7.0-40); AST/SGOT 108 U/L (<34); BILIRUBIN,DIRECT 0.2 MG/DL (<0.4); BILIRUBIN,TOTAL 0.6 MG/DL (0.3-1.2); BLOOD UREA NITROGEN 14 MG/DL (9-23); CALCIUM LEVEL 9.5 MG/DL (8.5-10.1); CARBON DIOXIDE LEVEL 26 MMOL/L (20-31); CHLORIDE LEVEL 106 MMOL/L (98-107); CREATININE FOR GFR 0.43 MG/DL (0.55-1.30); GLOMERULAR FILTRATION RATE > 60.0 (>51); GLUCOSE, FASTING 101 MG/DL (60-100); POTASSIUM SERUM 3.8 MMOL/L (3.5-5.1); PREALBUMIN 22.2 MG/DL (10.0-40.0); SODIUM LEVEL 138 MMOL/L (136-145); TOTAL PROTEIN 6.2 G/DL (5.7-8.2)
[2024-03-26] MEDS: SODIUM CHLORIDE 0.9% INJ 10 ML SYR IV SCH (15:28)
[2024-03-26 16:41] VITALS: BP 138/86; TEMP 98.4; O2SAT 95
== END 2024-03-26 16:59 | disposition home or self-care (01) ==
LOC: M ED 12:49
DX: R63.8 Other symptoms and signs concerning food and fluid intake (principal); C54.1 Malignant neoplasm of endometrium; Z92.21 Personal history of antineoplastic chemotherapy; Z86.718 Personal history of other venous thrombosis and embolism; Z79.01 Long term (current) use of anticoagulants; Z79.899 Other long term (current) drug therapy
CPT/HCPCS: 80048; 80076; 84134; 85025; 87210; 99284; J1642

== ENCOUNTER → 2024-04-04 | Outpatient (REF) | payer OTHER, MEDICARE, BC ==
[~2024-04-04] MED LIST changes: +NITR-67 PO
[2024-04-04 15:22] LABS: BASO % 0.2 % (0.0-1.0); EOS # 0.1 10^3/uL (0.0-0.5); EOS % 2.2 % (0.0-3.0); HEMOGLOBIN 13.4 g/dl (12.0-15.5); LYMPH # 1.7 10^3/uL (1.5-5.0); MEAN CORPUSCULAR HGB CONC 34.4 g/dl (32.0-36.5); MEAN CORPUSCULAR VOLUME 96.1 fl (80.0-96.0); MONO # 0.5 10^3/uL (0.0-0.8); NEUTROPHILS % 62.4 % (36.0-66.0); PLATELET COUNT, AUTOMATED 197 10^3/uL (150-450); RED BLOOD COUNT 4.06 10^6/uL (4.00-5.40); WHITE BLOOD COUNT 6.3 10^3/uL (4.0-10.0)
[2024-04-04 15:41] LABS: ERYTHROCYTE SEDIMENTATION RATE 22 mm/hr (0-30)
[2024-04-04 15:52] LABS: HEMOGLOBIN A1c 4.8 % (4.0-6.0)
[2024-04-04 17:20] LABS: ALBUMIN 3.4 G/DL (3.2-5.2); ALKALINE PHOSPHATASE 125 U/L (46-116); ALT/SGPT 128 U/L (7.0-40); AST/SGOT 101 U/L (<34); BILIRUBIN,TOTAL 0.7 MG/DL (0.3-1.2); BLOOD UREA NITROGEN 14 MG/DL (9-23); CALCIUM LEVEL 9.7 MG/DL (8.5-10.1); CARBON DIOXIDE LEVEL 25 MMOL/L (20-31); CHLORIDE LEVEL 108 MMOL/L (98-107); CREATININE FOR GFR 0.51 MG/DL (0.55-1.30); FOLATE > 24.0 NG/ML (>5.4); GLOMERULAR FILTRATION RATE > 60.0 (>51); GLUCOSE, FASTING 112 MG/DL (60-100); POTASSIUM SERUM 3.7 MMOL/L (3.5-5.1); SODIUM LEVEL 139 MMOL/L (136-145); THYROID STIMULATING HORMONE 2.268 uIU/ML (0.55-4.78); TOTAL PROTEIN 6.5 G/DL (5.7-8.2); VITAMIN B12 LEVEL 566 PG/ML (211-911)
[2024-04-06 07:13] LABS: T P ELECTROPHORESIS SO 6.4 g/dL (6.1-8.1)
== END ==
LOC: M LAB REF 14:53
PROVIDERS: ATTEND Psychiatry & Neurology Neurology
DX: R41.89 Other symptoms and signs involving cognitive functions and awareness (principal)

== ENCOUNTER → 2024-04-04 | Outpatient (CLI) | payer OTHER, MEDICARE, BC ==
[~2024-04-04] VITALS: Ht 170.2 cm; Wt 82.5 kg
[2024-04-04 13:55] VITALS: BP 131/89; O2SAT 98
[2024-04-04 14:55] LABS: APPEARANCE, URINE MANUAL CLOUDY (CLEAR); COLOR, URINE MANUAL YELLOW (YELLOW)
[2024-04-04 14:56] LABS: BILIRUBIN, URINE MANUAL NEGATIVE (NEGATIVE); BLOOD URINE MANUAL TRACE (NEGATIVE); GLUCOSE, URINE (UA) MANUAL NEGATIVE (NEGATIVE); KETONE, URINE MANUAL NEGATIVE (NEGATIVE); LEUKOCYTE ESTERASE, URINE MAN POSITIVE (NEGATIVE); NITRITE, URINE MANUAL NEGATIVE (NEGATIVE); PH,URINE MAN 5.5 UNITS (5.0 - 7.0); PROTEIN, URINE MANUAL TRACE mg/dL (NEGATIVE); SPECIFIC GRAVITY,URINE MANUAL 1.025 (1.002-1.035); UROBILINOGEN, URINE MANUAL 1 MG mg/dl (NORMAL)
[2024-04-04 15:09] LABS: BACTERIA, URINE MOD AMOUNT; MUCUS, URINE MOD AMOUNT (NEGATIVE); RBC, URINE NONE SEEN /hpf (0-3); SQUAMOUS EPITHELIAL CELL URINE SMALL AMOUNT /hpf (SMALL AMT)
[2024-04-04 15:10] LABS: HYALINE CAST, URINE NONE SEEN /lpf (0-1)
== END ==
LOC: M PAL 13:46
PROVIDERS: ATTEND Nurse Practitioner Adult Health
DX: N39.0 Urinary tract infection, site not specified (principal); B96.20 Unspecified Escherichia coli [E. coli] as the cause of diseases classified elsewhere; G93.40 Encephalopathy, unspecified; R62.7 Adult failure to thrive; D61.818 Other pancytopenia; R10.9 Unspecified abdominal pain; R51.9 Headache, unspecified; K11.7 Disturbances of salivary secretion; R11.0 Nausea; C54.1 Malignant neoplasm of endometrium; R53.81 Other malaise; Z51.5 Encounter for palliative care; Z79.01 Long term (current) use of anticoagulants; Z79.899 Other long term (current) drug therapy; Z80.1 Family history of malignant neoplasm of trachea, bronchus and lung; Z82.61 Family history of arthritis; Z82.69 Family history of other diseases of the musculoskeletal system and connective tissue; Z88.0 Allergy status to penicillin; Z88.1 Allergy status to other antibiotic agents; Z88.8 Allergy status to other drugs, medicaments and biological substances; Z90.710 Acquired absence of both cervix and uterus; Z90.722 Acquired absence of ovaries, bilateral; Z90.79 Acquired absence of other genital organ(s); Z92.21 Personal history of antineoplastic chemotherapy; Z92.3 Personal history of irradiation; Z93.1 Gastrostomy status
CPT/HCPCS: 81000; 87088; 87186; G0463

== ENCOUNTER → 2024-04-04 | Outpatient (REF) | payer OTHER, MEDICARE, BC ==
[2024-04-04 15:23] LABS: HEMATOCRIT 39.9 % (36.0-47.0); HEMOGLOBIN 13.5 g/dl (12.0-15.5); MEAN CORPUSCULAR HEMOGLOBIN 32.8 pg (27.0-33.0); MEAN CORPUSCULAR HGB CONC 33.8 g/dl (32.0-36.5); MEAN CORPUSCULAR VOLUME 96.8 fl (80.0-96.0); PLATELET COUNT, AUTOMATED 143 10^3/uL (150-450); RED BLOOD COUNT 4.12 10^6/uL (4.00-5.40); WHITE BLOOD COUNT 6.7 10^3/uL (4.0-10.0)
[2024-04-04 15:53] LABS: HEMOGLOBIN A1c 4.8 % (4.0-6.0)
[2024-04-04 16:55] LABS: ALBUMIN 3.4 G/DL (3.2-5.2); ALKALINE PHOSPHATASE 127 U/L (46-116); ALT/SGPT 128 U/L (7.0-40); AST/SGOT 104 U/L (<34); BILIRUBIN,TOTAL 0.7 MG/DL (0.3-1.2); BLOOD UREA NITROGEN 15 MG/DL (9-23); CALCIUM LEVEL 9.6 MG/DL (8.5-10.1); CARBON DIOXIDE LEVEL 24 MMOL/L (20-31); CHLORIDE LEVEL 109 MMOL/L (98-107); FREE T4 1.45 NG/DL (0.89-1.76); GLOMERULAR FILTRATION RATE > 60.0 (>51); GLUCOSE, FASTING 114 MG/DL (60-100); POTASSIUM SERUM 3.8 MMOL/L (3.5-5.1); SODIUM LEVEL 137 MMOL/L (136-145); THYROID STIMULATING HORMONE 2.346 uIU/ML (0.55-4.78); TOTAL PROTEIN 6.6 G/DL (5.7-8.2)
== END ==
LOC: M LAB REF 14:59
PROVIDERS: ATTEND Nurse Practitioner Adult Health
DX: G93.41 Metabolic encephalopathy (principal); K76.0 Fatty (change of) liver, not elsewhere classified

== ENCOUNTER 2024-04-22 15:51 | Emergency (ER) | payer BC, OTHER ==
[~2024-04-22] VITALS: Ht 170.2 cm; Wt 80.9 kg
[2024-04-22] MEDS ORDERED: SODIUM CHLORIDE 0.9% INJ 10 ML SYR IV PRN (17:50)
[2024-04-22 18:25] LABS: VENOUS BASE EXCESS -0.2 (-2.0-2.0); VENOUS HCO3 23.2 MMOL/L (23.0-27.0); VENOUS O2 SATURATION 94.4 % (60.0-80.0); VENOUS PARTIAL PRESSURE CO2 34.1 mmHg (38.0-50.0); VENOUS PARTIAL PRESSURE O2 71.1 mmHg (30.0-50.0); VENOUS STANDARD HCO3 24.2 MMOL/L; VENOUS TOTAL CO2 24.2 MMOL/L (24.0-28.0)
[2024-04-22 18:32] LABS: EOS # 0.1 10^3/uL (0.0-0.5); EOS % 1.9 % (0.0-3.0); HEMATOCRIT 35.3 % (36.0-47.0); HEMOGLOBIN 12.3 g/dl (12.0-15.5); LYMPH # 1.7 10^3/uL (1.5-5.0); LYMPH % 30.4 % (24.0-44.0); MEAN CORPUSCULAR HGB CONC 34.8 g/dl (32.0-36.5); MEAN CORPUSCULAR VOLUME 97.5 fl (80.0-96.0); MONO # 0.7 10^3/uL (0.0-0.8); MONO % 11.4 % (2.0-8.0); NEUTROPHILS # 3.2 10^3/uL (1.5-8.5); NEUTROPHILS % 56.1 % (36.0-66.0); PLATELET COUNT, AUTOMATED 175 10^3/uL (150-450); RED BLOOD COUNT 3.62 10^6/uL (4.00-5.40); WHITE BLOOD COUNT 5.7 10^3/uL (4.0-10.0)
[2024-04-22 19:01] LABS: CK-MB VALUE MASS < 1.0 NG/ML (<3.6)
[2024-04-22 19:03] LABS: CPK CREATINE PHOSPHOKINASE 37 U/L (34-145)
[2024-04-22 19:04] LABS: ALKALINE PHOSPHATASE 120 U/L (35-104); ALT/SGPT 163 U/L (7.0-40); AST/SGOT 165 U/L (<34); BILIRUBIN,DIRECT 0.3 MG/DL (<0.4); BILIRUBIN,TOTAL 0.6 MG/DL (0.3-1.2); BLOOD UREA NITROGEN 17 MG/DL (9-23); CALCIUM LEVEL 9.3 MG/DL (8.5-10.1); CARBON DIOXIDE LEVEL 25 MMOL/L (20-31); CHLORIDE LEVEL 107 MMOL/L (98-107); CREATININE FOR GFR 0.46 MG/DL (0.55-1.30); GLOMERULAR FILTRATION RATE > 60.0 (>51); GLUCOSE, FASTING 98 MG/DL (60-100); MAGNESIUM LEVEL 1.9 MG/DL (1.8-2.4); POTASSIUM SERUM 3.7 MMOL/L (3.5-5.1); SODIUM LEVEL 142 MMOL/L (136-145); TOTAL PROTEIN 5.9 G/DL (5.7-8.2)
[2024-04-22 19:05] LABS: THYROID STIMULATING HORMONE 2.335 uIU/ML (0.55-4.78); THYROXINE (T4) 11.8 UG/DL (4.5-10.9)
[2024-04-22 19:06] LABS: VITAMIN B12 LEVEL 662 PG/ML (211-911)
[2024-04-22 19:08] LABS: FREE THYROXINE INDEX 4.2 % (1.3-4.8); T UPTAKE 35.6 % (22.5-37.0)
[2024-04-22] MEDS ORDERED: ISOVUE-370 76% 100ML VIAL As Ordered ONE (19:14)
[2024-04-22] MEDS: LIDOCAINE 2% 5ML JELLY UROJET TOP ONE (19:15)
[2024-04-22 21:14] VITALS: BP 144/72; TEMP 97.6; O2SAT 97
[2024-04-23] MEDS ORDERED: SODIUM CHLORIDE 0.9% INJ 10 ML SYR IV SCH (09:00)
== END 2024-04-22 21:37 | disposition home or self-care (01) ==
LOC: M ED 15:51
DX: R53.83 Other fatigue (principal); R53.81 Other malaise; C54.1 Malignant neoplasm of endometrium; E27.9 Disorder of adrenal gland, unspecified; Z92.21 Personal history of antineoplastic chemotherapy; Z86.718 Personal history of other venous thrombosis and embolism; Z79.01 Long term (current) use of anticoagulants; Z79.899 Other long term (current) drug therapy; K58.9 Irritable bowel syndrome, unspecified; Z88.8 Allergy status to other drugs, medicaments and biological substances; Z90.710 Acquired absence of both cervix and uterus; M48.061 Spinal stenosis, lumbar region without neurogenic claudication
CPT/HCPCS: 36415; 51701; 74177; 80048; 80076; 81001; 82550; 82553; 82607; 82803; 83605; 83735; 84425; 84436; 84443; 84479; 84484; 85025; 87486; 87507; 87581; 87633; 87798; 93005; 99284; J1642; Q9967

== ENCOUNTER → 2024-05-14 | Outpatient (CLI) | payer BC, MEDICARE, OTHER ==
[~2024-05-14] VITALS: Ht 170.2 cm; Wt 83.3 kg
[~2024-05-14] MED LIST changes: +FLUC10TA PEG; +HYOS125E2 PEG
[2024-05-14 13:07] VITALS: BP 134/96; O2SAT 97
== END ==
LOC: M PAL 12:44
PROVIDERS: ATTEND Nurse Practitioner Adult Health
DX: C54.1 Malignant neoplasm of endometrium (principal); B37.0 Candidal stomatitis; G93.40 Encephalopathy, unspecified; R62.7 Adult failure to thrive; D61.818 Other pancytopenia; R10.9 Unspecified abdominal pain; R51.9 Headache, unspecified; K11.7 Disturbances of salivary secretion; R11.0 Nausea; R53.81 Other malaise; Z51.5 Encounter for palliative care; Z79.01 Long term (current) use of anticoagulants; Z79.899 Other long term (current) drug therapy; Z87.440 Personal history of urinary (tract) infections; Z90.710 Acquired absence of both cervix and uterus; Z90.722 Acquired absence of ovaries, bilateral; Z90.79 Acquired absence of other genital organ(s); Z88.1 Allergy status to other antibiotic agents; Z88.8 Allergy status to other drugs, medicaments and biological substances; Z92.21 Personal history of antineoplastic chemotherapy; Z86.718 Personal history of other venous thrombosis and embolism; Z82.49 Family history of ischemic heart disease and other diseases of the circulatory system; Z80.1 Family history of malignant neoplasm of trachea, bronchus and lung; Z82.69 Family history of other diseases of the musculoskeletal system and connective tissue; Z93.1 Gastrostomy status

== ENCOUNTER → 2024-05-28 | Outpatient (CLI) | payer BC ==
[~2024-05-28] MED LIST changes: +ISOVUE-370 76% 100ML VIAL As Ordered ONE
== END ==
LOC: M RAD 08:57
PROVIDERS: ATTEND Specialist
DX: C54.1 Malignant neoplasm of endometrium (principal)
CPT/HCPCS: 74177; J1642; Q9967

== ENCOUNTER → 2024-06-04 | Outpatient (CLI) | payer BC ==
[~2024-06-04] MED LIST changes: -ISOVUE-370 76% 100ML VIAL As Ordered ONE
== END ==
LOC: M PLAIMG 12:28
PROVIDERS: ATTEND Nurse Practitioner Adult Health
DX: M25.532 Pain in left wrist (principal)

== ENCOUNTER → 2024-06-06 | Outpatient (CLI) | payer BC ==
[~2024-06-06] MED LIST changes: +PROHANCE 279.3MG/ML 15ML VIAL As Ordered ONE; +PROHANCE 279.3MG/ML 5ML VIAL As Ordered ONE
== END ==
LOC: M RAD 14:15
PROVIDERS: ATTEND Psychiatry & Neurology Neurology
DX: G04.81 Other encephalitis and encephalomyelitis (principal); R41.3 Other amnesia; R55 Syncope and collapse
CPT/HCPCS: 70553; A9576; J1642

== ENCOUNTER → 2024-06-27 | Outpatient (CLI) | payer BC ==
[~2024-06-27] VITALS: Ht 170.2 cm; Wt 84.1 kg
[~2024-06-27] MED LIST changes: +OLAN5ZYD PO; -PROHANCE 279.3MG/ML 15ML VIAL As Ordered ONE; -PROHANCE 279.3MG/ML 5ML VIAL As Ordered ONE
[2024-06-27 14:25] VITALS: BP 118/80; O2SAT 97
== END ==
LOC: M PAL 13:47
PROVIDERS: ATTEND Family Medicine
DX: Z51.5 Encounter for palliative care (principal); C54.1 Malignant neoplasm of endometrium; R11.0 Nausea; G47.00 Insomnia, unspecified; R05.9 Cough, unspecified; R22.33 Localized swelling, mass and lump, upper limb, bilateral; M79.641 Pain in right hand; M79.642 Pain in left hand; Z79.899 Other long term (current) drug therapy; Z88.1 Allergy status to other antibiotic agents; Z88.8 Allergy status to other drugs, medicaments and biological substances; Z90.710 Acquired absence of both cervix and uterus; Z92.21 Personal history of antineoplastic chemotherapy; Z93.1 Gastrostomy status

== ENCOUNTER → 2024-07-02 | Outpatient (CLI) | payer BC | LOC: M PLAIMG 08:59 | PROVIDERS: ATTEND Nurse Practitioner Adult Health | DX: R05.3 Chronic cough (principal) ==

== ENCOUNTER → 2024-07-02 | Outpatient (REF) | payer BC | LOC: M SFHCPLAZ 09:46 | PROVIDERS: ATTEND Nurse Practitioner Adult Health | DX: R05.3 Chronic cough (principal) ==

== ENCOUNTER 2024-08-23 18:32 | Emergency (ER) | payer BC, MEDICAID ==
[~2024-08-23] VITALS: Ht 171.4 cm; Wt 84.4 kg
[~2024-08-23 18:32] MED LIST changes: +DOXY100T; +ERGO500029; +HYDR1OIN12; +KETO2CR; +PANT40TA29; +POTA-141; +TRIA1CR80
[2024-08-23 21:10] LABS: KETONE, URINE AUTO RFX NEGATIVE (NEGATIVE); MUCUS, URINE RFX SMALL (NEGATIVE); NITRITE, URINE AUTO RFX NEGATIVE (NEGATIVE); RBC, URINE AUTO RFX 2 /HPF (0-3); SQUAM EPITHELIAL CELL UR AURFX 2 /HPF (0-6); YEAST LIKE CELL URINE AUTO RFX SMALL
[2024-08-23 21:14] LABS: LEUKOCYTE ESTERASE UR AUTO RFX 3+ (NEGATIVE); WBC, URINE AUTO RFX 144 /HPF (0-3)
[2024-08-23] MEDS ORDERED: CEFD300C PO (21:42)
[2024-08-23] MEDS: CEFDINIR 300 MG CAP (OMNICEF) PO ONE (21:49)
[2024-08-23 22:05] VITALS: BP 125/75; TEMP 97.6; O2SAT 96
== END 2024-08-23 22:07 | disposition home or self-care (01) ==
LOC: M ED 18:32
DX: N39.0 Urinary tract infection, site not specified (principal); G40.909 Epilepsy, unspecified, not intractable, without status epilepticus; K58.9 Irritable bowel syndrome, unspecified; Z85.42 Personal history of malignant neoplasm of other parts of uterus; Z86.711 Personal history of pulmonary embolism; Z86.718 Personal history of other venous thrombosis and embolism; Z79.01 Long term (current) use of anticoagulants; Z79.899 Other long term (current) drug therapy; Z88.8 Allergy status to other drugs, medicaments and biological substances

== ENCOUNTER 2024-10-04 18:27 | Emergency (ER) | payer BC, MEDICAID ==
[~2024-10-04] VITALS: Ht 172.7 cm; Wt 90.2 kg
[~2024-10-04 18:27] MED LIST changes: +CEFD300C PO
[2024-10-04 18:36] VITALS: TEMP 96.5
[2024-10-04] MEDS ORDERED: HEPARIN SOD (PORCINE) 5000UNITS/ML 1ML VIAL/SYRINGE IV PRN (22:20)
[2024-10-04 22:21] LABS: EOS # 0.1 10^3/uL (0.0-0.5); EOS % 3.2 % (0.0-3.0); HEMATOCRIT 34.1 % (36.0-47.0); HEMOGLOBIN 11.5 g/dl (12.0-15.5); LYMPH # 1.1 10^3/uL (1.5-5.0); LYMPH % 25.9 % (24.0-44.0); MEAN CORPUSCULAR HEMOGLOBIN 34.4 pg (27.0-33.0); MEAN CORPUSCULAR HGB CONC 33.7 g/dl (32.0-36.5); MEAN CORPUSCULAR VOLUME 102.1 fl (80.0-96.0); MONO # 0.5 10^3/uL (0.0-0.8); MONO % 10.4 % (2.0-8.0); NEUTROPHILS # 2.6 10^3/uL (1.5-8.5); NEUTROPHILS % 60.3 % (36.0-66.0); PLATELET COUNT, AUTOMATED 124 10^3/uL (150-450); RED BLOOD COUNT 3.34 10^6/uL (4.00-5.40); WHITE BLOOD COUNT 4.3 10^3/uL (4.0-10.0)
[2024-10-04 22:38] VITALS: BP 116/59; O2SAT 94
[2024-10-04 22:42] LABS: INR 1.21; PARTIAL THROMBOPLASTIN TIME 32.2 SECONDS (24.8-34.2); PROTHROMBIN TIME 15.6 SECONDS (12.5-14.5)
[2024-10-04 22:46] LABS: ALBUMIN 2.2 G/DL (3.2-5.2); ALKALINE PHOSPHATASE 118 U/L (35-104); ALT/SGPT 44 U/L (7.0-40); AST/SGOT 52 U/L (<34); BILIRUBIN,TOTAL 0.4 MG/DL (0.3-1.2); BLOOD UREA NITROGEN 12 MG/DL (9-23); CALCIUM LEVEL 7.4 MG/DL (8.5-10.1); CARBON DIOXIDE LEVEL 27 MMOL/L (20-31); CHLORIDE LEVEL 112 MMOL/L (98-107); CREATININE FOR GFR 0.49 MG/DL (0.55-1.30); GLOMERULAR FILTRATION RATE > 90.0 (>51); GLUCOSE, FASTING 97 MG/DL (60-100); POTASSIUM SERUM 3.4 MMOL/L (3.5-5.1); SODIUM LEVEL 148 MMOL/L (136-145); TOTAL PROTEIN 5.2 G/DL (5.7-8.2)
[2024-10-04] MEDS: SODIUM CHLORIDE 0.9% INJ 10 ML SYR IV PRN (23:25)
[2024-10-05] MEDS ORDERED: SODIUM CHLORIDE 0.9% INJ 10 ML SYR IV SCH (09:00)
== END 2024-10-04 23:33 | disposition home or self-care (01) ==
LOC: M ED 18:27
DX: K92.2 Gastrointestinal hemorrhage, unspecified (principal); K64.9 Unspecified hemorrhoids; Z86.711 Personal history of pulmonary embolism; R56.9 Unspecified convulsions; Z85.42 Personal history of malignant neoplasm of other parts of uterus; Z93.1 Gastrostomy status; Z79.01 Long term (current) use of anticoagulants; Z79.899 Other long term (current) drug therapy; Z88.8 Allergy status to other drugs, medicaments and biological substances
CPT/HCPCS: 80053; 85025; 85610; 85730; 96374; 99283; J1642

== ENCOUNTER → 2025-02-04 | Outpatient (REF) | payer BC, MEDICAID ==
[~2025-02-04] MED LIST changes: +CHOL1CAP PO; +MAG30ORA18 PEG; -MYLASSUD PEG
== END ==
LOC: M SFHCPLAZ 10:09
PROVIDERS: ATTEND Nurse Practitioner Adult Health
DX: R39.15 Urgency of urination (principal)

== ENCOUNTER 2025-02-23 08:49 | Emergency (ER) | payer BC, MEDICAID ==
[~2025-02-23] VITALS: Ht 172.7 cm; Wt 104.5 kg
[2025-02-23 10:13] LABS: KETONE, URINE AUTO RFX NEGATIVE (NEGATIVE); NITRITE, URINE AUTO RFX NEGATIVE (NEGATIVE); RBC, URINE AUTO RFX 1 /HPF (0-3); SQUAM EPITHELIAL CELL UR AURFX 4 /HPF (0-6)
[2025-02-23 10:19] LABS: LEUKOCYTE ESTERASE UR AUTO RFX TRACE (NEGATIVE); WBC, URINE AUTO RFX 13 /HPF (0-3)
[2025-02-23 10:47] LABS: BASO # 0.0 10^3/uL (0.0-0.2); BASO % 0.0 % (0.0-1.0); EOS # 0.2 10^3/uL (0.0-0.5); EOS % 4.1 % (0.0-3.0); LYMPH # 1.6 10^3/uL (1.5-5.0); LYMPH % 40.4 % (24.0-44.0); MONO # 0.5 10^3/uL (0.0-0.8); MONO % 11.9 % (2.0-8.0); NEUTROPHILS # 1.7 10^3/uL (1.5-8.5); NEUTROPHILS % 43.3 % (36.0-66.0); PLATELET COUNT, AUTOMATED 114 10^3/uL (150-450)
[2025-02-23 11:35] LABS: VENOUS BASE EXCESS 0.5 (-2.0-2.0); VENOUS HCO3 26.1 MMOL/L (23.0-27.0); VENOUS O2 SATURATION 88.3 % (60.0-80.0); VENOUS PARTIAL PRESSURE CO2 45.5 mmHg (38.0-50.0); VENOUS PARTIAL PRESSURE O2 56.5 mmHg (30.0-50.0); VENOUS PH 7.376 UNITS (7.330-7.430); VENOUS STANDARD HCO3 24.7 MMOL/L; VENOUS TOTAL CO2 27.5 MMOL/L (24.0-28.0)
[2025-02-23 12:09] LABS: ALT/SGPT 46 U/L (7.0-40); AST/SGOT 44 U/L (<34); CALCIUM LEVEL 8.9 MG/DL (8.5-10.1); CARBON DIOXIDE LEVEL 26 MMOL/L (20-31); CHLORIDE LEVEL 109 MMOL/L (98-107); CREATININE FOR GFR 0.56 MG/DL (0.55-1.30); GLOMERULAR FILTRATION RATE > 90.0 (>51); MAGNESIUM LEVEL 1.6 MG/DL (1.8-2.4); POTASSIUM SERUM 3.3 MMOL/L (3.5-5.1); SODIUM LEVEL 147 MMOL/L (136-145)
[2025-02-23 12:10] LABS: FREE T4 1.10 NG/DL (0.89-1.76)
[2025-02-23] MEDS ORDERED: ISOVUE-370 76% 100 ML VIAL As Ordered ONE (12:25)
[2025-02-23] MEDS: MAG SULF 1GM/100ML (MAG RUN) 1 GM in IV 1 EA IV ONE (14:01)
[2025-02-23] MEDS: POTASSIUM CHLORIDE 10MEQ SR TABLET PO ONE (14:01)
[2025-02-23] MEDS ORDERED: CEFD300C PO (15:00)
[2025-02-23] MEDS ORDERED: DOXY-442 PO (15:00)
[2025-02-23 15:16] VITALS: BP 116/67; TEMP 98.1; O2SAT 96
== END 2025-02-23 15:38 | disposition home or self-care (01) ==
LOC: M ED 08:49
DX: J18.9 Pneumonia, unspecified organism (principal); D35.02 Benign neoplasm of left adrenal gland; R56.9 Unspecified convulsions; Z93.1 Gastrostomy status; Z86.711 Personal history of pulmonary embolism; Z85.42 Personal history of malignant neoplasm of other parts of uterus; Z79.01 Long term (current) use of anticoagulants; Z79.899 Other long term (current) drug therapy; Z88.8 Allergy status to other drugs, medicaments and biological substances
CPT/HCPCS: 36415; 70450; 71045; 74177; 80053; 81001; 82140; 82803; 83605; 83690; 83735; 84439; 84443; 85025; 87040; 87086; 87486; 87581; 87633; 87798; 93005; 96365; 99285; J3475; Q9967

== ENCOUNTER 2025-06-14 21:51 | Emergency (ER) | payer BC, MEDICAID ==
[~2025-06-14] VITALS: Ht 167.6 cm; Wt 115.5 kg
[~2025-06-14 21:51] MED LIST changes: +BACI1TAB20 PO; +DIVA250T67; +DOXY-442 PO; -PROC5TAB57 PO; +PROC5TAB81 PO; +VITA1TAB82 PO
[2025-06-14] MEDS: ACETAMINOPHEN 325 MG TAB PO ONE (22:40)
[2025-06-14] MEDS: LIDOCAINE 5% PATCH TD ONE (23:24)
[2025-06-14] MEDS ORDERED: LIDO1ADH93 TD (23:55)
[2025-06-15 00:12] VITALS: BP 117/59
[2025-06-15 00:15] VITALS: TEMP 98.2; O2SAT 95
[2025-06-15 00:31] VITALS: O2SAT 98
== END 2025-06-15 00:35 | disposition home or self-care (01) ==
LOC: EDBD 21:51 → M ED 21:51
DX: S20.211A Contusion of right front wall of thorax, initial encounter (principal); W01.10XA Fall on same level from slipping, tripping and stumbling with subsequent striking against unspecified object, initial encounter; Y92.009 Unspecified place in unspecified non-institutional (private) residence as the place of occurrence of the external cause; Y93.9 Activity, unspecified; Y99.9 Unspecified external cause status; K21.9 Gastro-esophageal reflux disease without esophagitis; E55.9 Vitamin D deficiency, unspecified; F41.9 Anxiety disorder, unspecified; Z79.01 Long term (current) use of anticoagulants; Z79.899 Other long term (current) drug therapy; Z88.8 Allergy status to other drugs, medicaments and biological substances